=== PATIENT | male | born 1955 | race Caucasian/White ===

== ENCOUNTER 2018-06-12 13:49 | Inpatient (IN) | payer MEDICARE, BC ==
--- NOTE | 2018-06-12 15:30 | PDOC ---
History of Present Illness - General Chief Complaint: Wound Stated Complaint: INFECTED TOE Time Seen by Provider: 06/12/18 15:30 History Source: Patient Exam Limitations: No Limitations - History of Present Illness Initial Comments: 06/12/18 16:06 62 year old man with a history of HTN, type 2 DM with neuropathy, bilateral toe amputations, CAD with previous CABG and stent placements multiple foot wounds managed by wound care clinic who presents with 4 days of L third digit ulcer with darkening and gangrenes appearance that was concerning to wound care interactive media marketing strategist who recommended that patient come to the ED for admission. The patient denies any fevers, nausea, vomiting,diarrhea, constipation, chest pain, shortness of breath. The patient has baseline decrease in sensation of the extremitites due to diabetic neuropathy. Past History - Past Medical History Allergies/Adverse Reactions: Allergies Allergy/AdvReac Type Severity Reaction Status Date / Time No Known Allergies Allergy Verified 07/24/13 17:04 Home Medications: Ambulatory Orders Atorvastatin Ca [Lipitor] 20 mg PO HS #0 tablet 05/07/13 Losartan Potassium [Cozaar -] 25 mg PO DAILY #0 tablet 05/07/13 Carvedilol [Coreg -] 6.25 mg PO ONCE 06/12/18 Duloxetine HCl 60 mg PO DAILY 06/12/18 Metformin HCl [Glucophage] 500 mg PO DAILY 06/12/18 Pantoprazole Sodium [Protonix -] 40 mg PO DAILY 06/12/18 Ticagrelor [Brilinta] 90 mg PO BID 06/12/18 Asthma: No Cancer: No Cardiac Disorders: Yes (CAD, CABG, stent) CVA: No COPD: No Dementia: No Diabetes: Yes GI Disorders: Yes (REFLUX OCCASIONALLY) Disorders: No HTN: Yes Hypercholesterolemia: Yes Liver Disease: No Seizures: No Thyroid Disease: No - Surgical History Abdominal Surgery: Yes Appendectomy: No Cardiac Surgery: Yes (cabg x 3 2002; stents 2011) Cholecystectomy: No Lung Surgery: No Neurologic Surgery: No Orthopedic Surgery: Yes (L ARM COMPOUND FX) - Immunization History Immunization Up to Date: No - Suicide/Smoking/Psychosocial Hx Smoking History: Never smoked Have you smoked in the past 12 months: No If you are a former smoker, when did you quit?: 2003 Information on smoking cessation initiated: No Hx Alcohol Use: No Drug/Substance Use Hx: No Substance Use Type: None Hx Substance Use Treatment: No Review of Systems - Review of Systems Able to Perform ROS?: Yes Comments:: 06/12/18 16:23 GENERAL/CONSTITUTIONAL: No fever or chills. No weakness. HEAD, EYES, EARS, NOSE AND THROAT: No change in vision. No ear pain or discharge. No sore throat. CARDIOVASCULAR: No chest pain or shortness of breath RESPIRATORY: No cough, wheezing, or hemoptysis. GASTROINTESTINAL: No nausea, vomiting, diarrhea or constipation. GENITOURINARY: No dysuria, frequency, or change in urination. MUSCULOSKELETAL: No joint or muscle swelling or pain. No neck or back pain. SKIN: + blackened skin on L third toe NEUROLOGIC: No headache, vertigo, loss of consciousness, or change in strength/ sensation. ENDOCRINE: No increased thirst. No abnormal weight change HEMATOLOGIC/LYMPHATIC: No anemia, easy bleeding, or history of blood clots. ALLERGIC/IMMUNOLOGIC: No hives or skin allergy. *Physical Exam - Vital Signs Last Vital Signs Temp Pulse Resp BP Pulse Ox 98.5 F 69 16 129/51 L 98 06/12/18 14:02 06/12/18 14:02 06/12/18 14:02 06/12/18 14:02 06/12/18 14:02 - Physical Exam Comments: 06/12/18 16:21 GENERAL: Awake, alert, and fully oriented, in no acute distress HEAD: No signs of trauma, normocephalic, atraumatic EYES: EOMI, sclera anicteric, conjunctiva clear ENT: oropharynx clear without exudates. Moist mucosa NECK: Normal ROM, supple LUNGS: No distress, speaks full sentences, clear to auscultation bilaterally HEART: Regular rate and rhythm, normal S1 and S2, no murmurs, rubs or gallops, peripheral pulses normal and equal bilaterally. ABDOMEN: Soft, nontender, normoactive bowel sounds. No guarding, no rebound. No masses EXTREMITIES : R and L toe amputation, L third toe dry gangrene w/tunneling ulcer , warmth, erythema of L foot extending up into the L calf, palapable pulses NEUROLOGICAL: Cranial nerves II through XII grossly intact. Normal speech, no focal sensorimotor deficits SKIN: Warm, Dry, normal turgor, no rashes or lesions noted ED Treatment Course - LABORATORY CBC & Chemistry Diagram: 06/12/18 16:35 06/12/18 17:00 Medical Decision Making - Medical Decision Making 06/12/18 16:15 62 year old man with a history of diabetes, diabetic neuropathy, bilateral toe amputations, and multiple foot wounds managed by wound care clinic who presents with 4 days of L third digit ulcer with darkening and gangrenes appearance that was concerning to wound care interactive media marketing strategist who recommended that patient come to the ED for admission. ED Course: diabetic ulcer w/ dry gangrene r/o osteomyelitis Foot XR 06/10/18: without gross bone destruction cbc w/ leukocytosis 06/12/18 18:43 Case discussed with inpatient team, admitted *DC/Admit/Observation/Transfer Diagnosis at time of Disposition: Diabetic foot ulcer - Discharge Dispostion Condition at time of disposition: Stable Decision to Admit order: Yes - Referrals - Patient Instructions - Post Discharge Activity
[2018-06-12] MEDS ORDERED: PIPERACILLIN/TAZOB 4.5 GM 4.5 GM in DEXTROSE 5%-WATER 100 ML IVPB ONE (16:03)
[2018-06-12] MEDS ORDERED: VANCOMYCIN HCL 1,500 MG in DEXTROSE 5%-WATER - 500 ML IVPB ONE (16:03)
[2018-06-12] MEDS ORDERED: SODIUM CHLORIDE 1,000 ML IV SCH (16:15)
[2018-06-12] MEDS ORDERED: PIPERACILLIN/TAZOB 4.5 GM 4.5 GM/100 ML BAG IVPB ONE (16:36)
--- NOTE | 2018-06-12 16:39 | PDOC ---
Documentation entered by Ashlyn Manzano SCRIBE, acting as scribe for Leeann Mcadams DO. Leeann Mcadams DO: This documentation has been prepared by the Natacha emmanuel Amanda, SCRIBE, under my direction and personally reviewed by me in its entirety. I confirm that the documentation accurately reflects all work, treatment, procedures, and medical decision making performed by me. Attending Attestation - Resident Resident Name: Sujatha Davis - ED Attending Attestation I have performed the following: I have examined & evaluated the patient, The case was reviewed & discussed with the resident, I agree w/resident's findings & plan, Exceptions are as noted - HPI HPI: 06/12/18 16:24 The patient is a 62 year old man with a significant past medical history of diabetes, diabetic neuropathy, bilateral toe amputations, and multiple foot wounds managed by wound care clinic who presents to the ED with 4 days of L third digit darkening sent by wound care orthopaedic surgeon who recommended patient come to the ED for admission for possible amputation and IV Abx treatment. The patient denies any fevers, nausea, vomiting,diarrhea, constipation, chest pain, shortness of breath. The patient has baseline decrease in sensation of the extremitites due to diabetic neuropathy. - Physicial Exam PE: 06/12/18 16:25 GENERAL: Awake, alert, and fully oriented, in no acute distress HEAD: No signs of trauma EYES: PERRLA, EOMI, sclera anicteric, conjunctiva clear ENT: Auricles normal inspection, hearing grossly normal, nares patent, oropharynx clear without exudates. Moist mucosa NECK: Normal ROM, supple, no lymphadenopathy, JVD, or masses LUNGS: Breath sounds equal, clear to auscultation bilaterally. No wheezes, and no crackles HEART: Regular rate and rhythm, normal S1 and S2, no murmurs, rubs or gallops ABDOMEN: Soft, nontender, normoactive bowel sounds. No guarding, no rebound. No masses EXTREMITIES: (+) Left 1st toe amputation with wound at MTP of big toe. The 3rd digit of the left foot is necrotic. The left foot is warm with lymphangytic spread over the dorsum of the L foot extending to mid calf of LLE. Normal range of motion, no edema. No clubbing or cyanosis. No cords, NEUROLOGICAL: Cranial nerves II-XII intact. Normal speech, normal gait. Sensation intact in upper and lower extremities. 5/5 motor strength in upper and lower extremities. No pronator drift. Finger to nose intact. Rapid alternations intact. SKIN: Warm, Dry, normal turgor, no rashes or lesions noted. - Medical Decision Making 06/12/18 16:12 I, Dr. Leeann Mcadams, DO, attest that this document has been prepared under my direction and personally reviewed by me in its entirety. I further attest, that it accurately reflects all work, treatment, procedures and medical decision -making performed by me. 06/12/18 16:12 a/p: 62yo male with hx of DM and osteo in the past -dry gangrene of the L 3rd toe - black and necrotic with redness and swelling across the dorsum of the foot and up the medial calf -no fevers, lymphangitic spread -swelling -pulses intact, warm foot -non healing, sent by Dr. Otero for iv abx and poss amputation -will start broad spectrum abx -hx of MRSA in prior osteo -pt is nontoxic in appearance -will need admission to [facility] 06/12/18 16:18 had a foot xray on 06/10 that does not show bone changes for osteo 06/12/18 17:48 pt with mildly elevated wbc abx ordered cultures sent diabetic foot wound, microblog sent to [facility] for admission 06/12/18 18:45 resident discussed the case with [facility] who accepts pt to service Heart Score/ECG Review - ECG Intrepretation Comment:: 06/12/18 17:35 sinus at 78, incomplete RBBB, nl axis, baseline artifact, t wave inversions I, avl 06/12/18 17:36 06/12/18 17:37 unchanged from prior in 2013
[2018-06-12 17:12] LABS: BASO % 0.3 % (0-2.0); EOS % 0.6 % (0-4.5); HEMATOCRIT 37.9 % (35.4-49); HEMOGLOBIN 12.6 GM/dL (11.7-16.9); LYMPH % 8.1 % (8-40); MCH 28.9 pg (25.7-33.7); MCHC 33.2 g/dl (32.0-35.9); MEAN CELL VOLUME 87.2 fl (80-96); MEAN PLT VOLUME 7.5 fl (7.5-11.1); MONO % 8.4 % (3.8-10.2); NEUT % 82.6 % (42.8-82.8); PLATELET COUNT 288 K/MM3 (134-434); RBC 4.34 M/mm3 (4.00-5.60); RDW 13.8 % (11.9-15.9); WHITE BLOOD COUNT 13.5 K/mm3 (4.0-10.0)
[2018-06-12 17:38] LABS: ALBUMIN 3.2 g/dl (3.4-5.0); ALK PHOS 74 U/L (45-117); ANION GAP 8 MMOL/L (8-16); BILIRUBIN,TOTAL 0.5 mg/dL (0.2-1); BLOOD UREA NITROGEN 16 mg/dL (7-18); CALCIUM 9.1 mg/dL (8.5-10.1); CHLORIDE 96 mmol/L (98-107); CO2 28 mmol/L (21-32); CREATININE 1.3 mg/dL (0.55-1.3); GLUCOSE,RANDOM 87 mg/dL (74-106); POTASSIUM 4.1 mmol/L (3.5-5.1); SGOT/AST 19 U/L (15-37); SGPT/ALT 23 U/L (13-61); SODIUM 132 mmol/L (136-145); TOT PROT 8.3 g/dl (6.4-8.2)
[2018-06-12 17:39] LABS: INR 1.23 (0.83-1.09); PROTHROMBIN TIME (PATIENT) 14.5 SEC (9.7-13.0)
[2018-06-12 17:41] LABS: ACTIVATED PTT 32.5 SECONDS (25.2-36.5)
--- NOTE | 2018-06-12 19:47 | PN ---
Teaching Attending Note Name of Resident: Mina Klein ATTENDING PHYSICIAN STATEMENT I saw and evaluated the patient. I reviewed the resident's note and discussed the case with the resident. I agree with the resident's findings and plan as documented. SUBJECTIVE: Seen and examined; please refe to resident note for further historical details. 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 He presents after being sent in by Dr. Otero for further assessment and management; appears to have dry gangrene of the L-3rd toe with some rubar extending to the calf proximally. He had some drainage earlier in the week but none noted today in the ER. 10 sys ROS done and negative aside from HPI PMH, PSH, Social/Family hx reviewed Home Medications Medication Instructions Recorded Atorvastatin Ca [Lipitor] 20 mg PO HS #0 tablet 05/07/13 Losartan Potassium [Cozaar -] 25 mg PO DAILY #0 tablet 05/07/13 Carvedilol [Coreg -] 6.25 mg PO ONCE 06/12/18 Duloxetine HCl 60 mg PO DAILY 06/12/18 Metformin HCl [Glucophage] 500 mg PO DAILY 06/12/18 Pantoprazole Sodium [Protonix -] 40 mg PO DAILY 06/12/18 Ticagrelor [Brilinta] 90 mg PO BID 06/12/18 Also on insulin pump, trulicity. Final reconciliation pending. OBJECTIVE: VS, labs, imaging reviewed NAD, AAO, resting in bed R-3rd toe with reddness extending to calf; NC AT EOMI PERRLA RRR s1/2 no mgr Lungs CTAB, w/ sym exp CN2-12 wnl, no fnd EKG reviewed; no significant changes 06/10 XR documented as no OM changes MRI pending, arterial and venous dopplers pending Slight leukocytosis Prior cultures noted; MRSA bone cx 2013 ASSESSMENT AND PLAN: Patient with a hx MRSA+ OM presents with infected DM foot wound 1) DM Foot Wound, r/o osteomyelitis, with surrounding cellulitis -Followup MRI, ESR, CRP, cultures -Consult patient's vp strategic planning -Empiric IV Vanco/Zosyn, consult ID given abx choice -Followup arterial dopplers to assess for PAD 2) CAD w/ stated recent PCI; s/p CABG -No cardiac sx; would like to review old records. Continue all home medications (especially altiplts) and reconcile to ensure no recent changes. 3) DM -On home insulin pump. He may continue to use this overnight but if any hypo/ hyper would be in favor of SSI when here. Monitor fingersticks. -Followup A1c, etc. as OP. 4) HTN -Continue home medications 5) High protein/low alb -Minor over upper limit of normal; followup and consider further workup if abnormalities persist.
--- NOTE | 2018-06-12 20:59 | HP ---
CHIEF COMPLAINT: Left 3rd Toe gangrene PCP: none HISTORY OF PRESENT ILLNESS: Pt is a 62 y/o gentleman with a significant past medical history of CAD s/p CABG (3 stents),IDDM, Diabetic Neuropathy, osteo with MRSA+ wound, HTN who was sent to [facility] by his director of publications due to left 3rd toe gangrene. Per pt, approximately 10 days ago, he began to experience pain in his lower left extremity. Pt does not recall any injuries to the area. Pt the following week went to his wound care clinic where he was told that he had an infection of his toe. Pt endorses that the pain is worse when he is ambulating; while he is sitting and not using his foot, he does not have any pain. States he noted some discharge from the affected toe earlier in the week which was described as yellow. Currently denies any discharge. Denies any fevers, nausea/vomiting, sob , chest pain. PMH as per above Social Hx- Former Smoker quit 2002. Smoked 2 packs per day. Former "heavy drinker", quit. Denies IVDA. SurgHx- CABG 2002 [facility], b/l Large toe amputations FH- Esophageal cancer father NKDA ER course was notable for: (1) Vanc/Zosyn (2) WBC 13.5 Family History: Allergies No Known Allergies Allergy (Verified 07/24/13 17:04) HOME MEDICATIONS: Home Medications Medication Instructions Recorded Atorvastatin Ca [Lipitor] 20 mg PO HS #0 tablet 05/07/13 Losartan Potassium [Cozaar -] 25 mg PO DAILY #0 tablet 05/07/13 Carvedilol [Coreg -] 6.25 mg PO ONCE 06/12/18 Duloxetine HCl 60 mg PO DAILY 06/12/18 Metformin HCl [Glucophage] 500 mg PO DAILY 06/12/18 Pantoprazole Sodium [Protonix -] 40 mg PO DAILY 06/12/18 Ticagrelor [Brilinta] 90 mg PO BID 06/12/18 REVIEW OF SYSTEMS CONSTITUTIONAL: Absent: fever, chills, diaphoresis, generalized weakness, malaise, loss of appetite, weight change HEENT: Absent: rhinorrhea, nasal congestion, throat pain, throat swelling, difficulty swallowing, mouth swelling, ear pain, eye pain, visual changes CARDIOVASCULAR: Absent: chest pain, syncope, palpitations, irregular heart rate, lightheadedness , peripheral edema RESPIRATORY: Absent: cough, shortness of breath, dyspnea with exertion, orthopnea, wheezing, stridor, hemoptysis GASTROINTESTINAL: Absent: abdominal pain, abdominal distension, nausea, vomiting, diarrhea, constipation, melena, hematochezia GENITOURINARY: Absent: dysuria, frequency, urgency, hesitancy, hematuria, flank pain, genital pain MUSCULOSKELETAL: PRESENT: Pain left lower extremity. SKIN: Absent: rash, itching, pallor HEMATOLOGIC/IMMUNOLOGIC: Absent: easy bleeding, easy bruising, lymphadenopathy, frequent infections ENDOCRINE: Absent: unexplained weight gain, unexplained weight loss, heat intolerance, cold intolerance NEUROLOGIC: Absent: headache, focal weakness or paresthesias, dizziness, unsteady gait, seizure, mental status changes, bladder or bowel incontinence PSYCHIATRIC: Absent: anxiety, depression, suicidal or homicidal ideation, hallucinations. PHYSICAL EXAMINATION Vital Signs - 24 hr 06/12/18 14:02 Temperature 98.5 F Pulse Rate 69 Respiratory 16 Rate Blood Pressure 129/51 L O2 Sat by Pulse 98 Oximetry (%) GENERAL: AAOx3 NAD HEAD: Normal with no signs of trauma. EYES: EOMI Sclera clear EARS, NOSE, THROAT: MMM NECK: Supple no JVD LUNGS: CTAB HEART: RRR nl S1S2 ABDOMEN: Soft NDNT MUSCULOSKELETAL: FROM LOWER EXTREMITIES: Decreased Sensation entire left foot up to ankle. Left 3rd toe black, no sensation. DP weak. B/l hallux amputated. NEUROLOGICAL: Cranial nerves II-XII intact. Normal speech PSYCHIATRIC: Cooperative. Good eye contact. Appropriate mood and affect. SKIN: Warm, dry, normal turgor, no rashes or lesions noted, normal capillary refill. Laboratory Results - last 24 hr 06/12/18 06/12/18 06/12/18 16:35 16:35 17:00 WBC 13.5 H RBC 4.34 Hgb 12.6 Hct 37.9 MCV 87.2 MCH 28.9 MCHC 33.2 RDW 13.8 Plt Count 288 MPV 7.5 Absolute Neuts (auto) 11.1 H Neutrophils % 82.6 D Lymphocytes % 8.1 D Monocytes % 8.4 Eosinophils % 0.6 Basophils % 0.3 Nucleated RBC % 0 PT with INR 14.50 H INR 1.23 H PTT (Actin FS) 32.5 Sodium 132 L Potassium 4.1 Chloride 96 L Carbon Dioxide 28 Anion Gap 8 BUN 16 Creatinine 1.3 Creat Clearance w eGFR 56.12 Random Glucose 87 Calcium 9.1 Total Bilirubin 0.5 AST 19 ALT 23 Alkaline Phosphatase 74 Total Protein 8.3 H Albumin 3.2 L ASSESSMENT/PLAN: Pt is a 62 y/o gentleman with a significant past medical history of CAD s/p CABG (3 stents),IDDM, Diabetic Neuropathy, osteo with MRSA+ wound, HTN who was sent to [facility] by his director of publications due to left 3rd toe gangrene. #Gangrene w/ Cellulites -Left 3rd toe gangrene. Cellulitis extending up to mid-calf. -Received Vanc Zosyn in ED as previous Wound culture from 04/2013 revealed + MRSA sensitive to Vanco. Will continue Vanco and Zosyn as pt DM and susceptible to Pseudomonas infection. Pharmacy contacted. Recommends Vanco 1G Q8H in light of pt's weight and CrCl. -CRP, ESR Pending -f/u BMP,CBC in am -Venous and Arterial doppler of Left lower extremity as DP faint. Possible Angio intervention if imaging +. -MRI to assess for osteo. Previous XRAY on 06/10 stated " possible osteo left SECOND toe?". -Podiatry consulted. Possible amputation tomorrow.Will make pt NPO. PT/INR PTT in am. -Blood Cultures pending #DM -Insulin Sliding Scale coverage Pump removed In ED. BGMs #HTN -Coreg 6.25 -Losartan 25 Daily #CAD -Rosuvastain 20 -ASA 81 -Ticagrelor. Pt endorses he stopped taking this medication 4 days ago as he thought it may worsen his toe infection. Day team needs to communicate with Dr Floyd to discuss if this medication needs to be held. #FEN -LR@75cc/hr -Monitor Electrolytes -NPO #DVT -SCDs -Hold AC in light of possible surgery in am Dispo: Med-Surg Visit type - Emergency Visit Emergency Visit: Yes ED Registration Date: 06/12/18 Care time: The patient presented to the Emergency Department on the above date and was hospitalized for further evaluation of their emergent condition. - New Patient This patient is new to me today: Yes Date on this admission: 06/13/18 - Critical Care Critical Care patient: No
[2018-06-12] MEDS: LACTATED RINGERS SOLUTION 1,000 ML/1,000 ML INFUS.BAG IV SCH (21:00)
[2018-06-12] MEDS ORDERED: CARVEDILOL 6.25 MG TABLET (FP) PO ONE (22:00)
[2018-06-12] MEDS ORDERED: CARVEDILOL 12.5 MG TABLET (FP) ONE (23:16)
[2018-06-12] MEDS: ROSUVASTATIN CA 20 MG TABLET (FP) PO SCH (23:31)
[2018-06-13] MEDS ORDERED: VANCOMYCIN 1,000 MG in DEXTROSE 5%-WATER - 250 ML IVPB SCH ×3 (02:00→18:19)
[2018-06-13] MEDS ORDERED: PIPERACILLIN/TAZOBACTAM 3.375 GM VIAL IVPB ONE ×3 (02:03→17:31)
[2018-06-13] MEDS ORDERED: DEXTROSE 5%-WATER - 50 ML IVPB ONE ×3 (02:04→17:32)
[2018-06-13] MEDS: PIPERACILLIN/TAZOB 3.375 GM 3.375 GM in DEXTROSE 5%-WATER - 50 ML IVPB SCH ×3 (02:14→17:56)
[2018-06-13 04:36] VITALS: BMI 33.3
[2018-06-13 06:17] LABS: BASO % 0.4 % (0-2.0); EOS % 1.7 % (0-4.5); HEMATOCRIT 34.3 % (35.4-49); HEMOGLOBIN 11.7 GM/dL (11.7-16.9); LYMPH % 14.4 % (8-40); MCH 29.3 pg (25.7-33.7); MCHC 34.2 g/dl (32.0-35.9); MEAN CELL VOLUME 85.8 fl (80-96); MEAN PLT VOLUME 7.4 fl (7.5-11.1); MONO % 12.4 % (3.8-10.2); NEUT % 71.1 % (42.8-82.8); PLATELET COUNT 259 K/MM3 (134-434)
[2018-06-13 06:27] LABS: INR 1.23 (0.83-1.09); PROTHROMBIN TIME (PATIENT) 14.5 SEC (9.7-13.0)
[2018-06-13 06:30] LABS: ACTIVATED PTT 28.4 SECONDS (25.2-36.5)
[2018-06-13 07:58] LABS: ALBUMIN 2.8 g/dl (3.4-5.0); ALK PHOS 66 U/L (45-117); ANION GAP 7 MMOL/L (8-16); BILIRUBIN,TOTAL 0.6 mg/dL (0.2-1); BLOOD UREA NITROGEN 18 mg/dL (7-18); CALCIUM 8.6 mg/dL (8.5-10.1); CHLORIDE 99 mmol/L (98-107); CO2 27 mmol/L (21-32); CREATININE 1.4 mg/dL (0.55-1.3); GLUCOSE,RANDOM 159 mg/dL (74-106); MAGNESIUM 2.4 mg/dL (1.8-2.4); POTASSIUM 3.8 mmol/L (3.5-5.1); SGOT/AST 21 U/L (15-37); SGPT/ALT 22 U/L (13-61); SODIUM 133 mmol/L (136-145); TOT PROT 7.5 g/dl (6.4-8.2)
--- NOTE | 2018-06-13 09:00 | CONSULT ---
- Consultation REQUESTING PROVIDER: CONSULT REQUEST: We have been asked to surgically evaluate this patient for ( left toe gangrene). PCP:Landen Moreno MD HISTORY OF PRESENT ILLNESS: 62 y/o gentleman w/ PMHx CAD s/p CABG (3 stents), IDDM, Diabetic Neuropathy, osteo with MRSA+ wound, HTN, sent by his rn lpn lvn due to left 3rd toe gangrene. Per pt, he began to have pain in his left leg approximately 10 days ago. Denies any known trauma to the area. Pt was seen at his wound care clinic last week, where he was told that he had an infection of his toe. Reports his toe began to look worse over the past few days (darker with skin sloughing) as well as some yellow drainage. Denies fevers/chills, nausea/vomiting, sob, chest pain. Denies current tobacco use, however is a former 2ppd smoker, quit in 2002. PMHx: as above PSHx: CABG 2002 [facility], b/l Large toe amputations Home Medications Medication Instructions Recorded Atorvastatin Ca [Lipitor] 20 mg PO HS #0 tablet 05/07/13 Losartan Potassium [Cozaar -] 25 mg PO DAILY #0 tablet 05/07/13 Aspirin 1 tab PO DAILY 06/12/18 Carvedilol [Coreg -] 6.25 mg PO ONCE 06/12/18 Dulaglutide [Trulicity] 1 dose IM WEEKLY 06/12/18 Duloxetine HCl 60 mg PO DAILY 06/12/18 Insulin Pump [Insulin Pump - (Nf)] 1 unit IM DAILY 06/12/18 Metformin HCl [Glucophage] 500 mg PO DAILY 06/12/18 Pantoprazole Sodium [Protonix -] 40 mg PO DAILY 06/12/18 Rosuvastatin [Crestor -] 1 tab PO HS 06/12/18 Ticagrelor [Brilinta] 90 mg PO BID 06/12/18 Allergies Allergy/AdvReac Type Severity Reaction Status Date / Time No Known Allergies Allergy Verified 07/24/13 17:04 REVIEW OF SYSTEMS: CONSTITUTIONAL: Absent: fever, chills CARDIOVASCULAR: Absent: chest pain, syncope RESPIRATORY: Absent: cough, shortness of breath GASTROINTESTINAL: Absent: abdominal pain PHYSICAL EXAM: GENERAL: Awake, alert, and fully oriented, in no acute distress. HEAD: Normal with no signs of trauma. LUNGS: unlabored on RA No accessory muscle use. LOWER EXTREMITIES: B/L feet unkept, + scaling skin, + callus b.l heels. R great toe amp site well healed with overlying callus. L foot with 1+ pitting edema to ankle, toe with gangrene from PIP down, open ulcer at tip of toe with + serosanguinous drainage. + foul odor. Minimal surrounding erythema. Separate circular area of erythema over mid calf medial to tibia. No TTP, no fluctance appreaciated. Vasc: 2+ femoral b/l, palpable dp b/l, unable to appreciate PT. Vital Signs Temperature 98.2 F 06/13/18 05:46 Pulse Rate 62 06/13/18 05:46 Respiratory Rate 16 06/13/18 05:46 Blood Pressure 132/76 06/13/18 05:46 O2 Sat by Pulse Oximetry (%) 96 06/13/18 03:36 Lab Results WBC 10.0 K/mm3 (4.0-10.0) 06/13/18 05:30 RBC 4.00 M/mm3 (4.00-5.60) 06/13/18 05:30 Hgb 11.7 GM/dL (11.7-16.9) 06/13/18 05:30 Hct 34.3 % (35.4-49) L 06/13/18 05:30 MCV 85.8 fl (80-96) 06/13/18 05:30 MCHC 34.2 g/dl (32.0-35.9) 06/13/18 05:30 RDW 14.0 % (11.9-15.9) 06/13/18 05:30 Plt Count 259 K/MM3 (134-434) 06/13/18 05:30 Sodium 133 mmol/L (136-145) L 06/13/18 05:30 Potassium 3.8 mmol/L (3.5-5.1) 06/13/18 05:30 Chloride 99 mmol/L (98-107) 06/13/18 05:30 Carbon Dioxide 27 mmol/L (21-32) 06/13/18 05:30 Anion Gap 7 MMOL/L (8-16) L 06/13/18 05:30 BUN 18 mg/dL (7-18) 06/13/18 05:30 Creatinine 1.4 mg/dL (0.55-1.3) H 06/13/18 05:30 Random Glucose 159 mg/dL (74-106) H 06/13/18 05:30 Calcium 8.6 mg/dL (8.5-10.1) 06/13/18 05:30 INR 1.23 (0.83-1.09) H 06/13/18 05:30 Vascular Duplex (06/12/18): no dvt lle, LLE arterial duplex with monophasic flow in FILER HELPER/pop/PTV and biphasic in SFA A/P: 62 y/o gentleman w/ PMHx CAD s/p CABG (3 stents), IDDM, Diabetic Neuropathy , osteo with MRSA+ wound, HTN, sent by his rn lpn lvn due to left 3rd toe gangrene. Per pt, he began to have pain in his left leg approximately 10 days ago. Pt with L third toe gangrene/DM infection. Pt with leukocytosis upon admission, 13.5k, now resolved. No fevers. -Amputation per Podiatry -Pt should f/u with Dr Birmingham for ROULA/PVR in the office for ROULA/PVRs -F/U MRI -Continue ASA 81mg/Statin -ABX per ID plan d/w attending Dr Birmingham
--- NOTE | 2018-06-13 09:51 | CONSULT ---
Consult - text type - Consultation Consultation Note: Podiatry Consultation: 62 year old diabetic, CAD M presented to wound care on Saturday with infection in left third digit. Patient was found to have exposed bone to the third toe at that time. I had prompted patient to present to ED and he waited until yesterday evening to present. Currently afebrile, VSS. PMHx: DM, HTN, CAD s/p stent 2 weeks ago Meds: noted ALL: NKMA BRITANY: L foot: pedal pulses 1/4, TG wnl. There is a third digit distal tuft diabetic ulcer down to bone, seropurulent drainage present, surrounding ischemic present , no soft tissue crepitus, no streaking cellulitis. ESR: 92 MRI L foot: pending IMp: 62 year old diabetic male with left third digit diabetic infection, osteomyelitis 1. IV abx per ID 2. MRI pending 3. Vascular consult pending 4. May want Cardiology input, patient had cardiac stent last month at [facility] 5. Will likely do amputation Saturday. Will need MRI to determine level of amputation of third toe. THank you for the courtesy of this consultation. Celso Floyd DPM
[2018-06-13] MEDS ORDERED: ASPIRIN 81 MG CHEWABLE TABLETS PO SCH (10:00)
[2018-06-13] MEDS ORDERED: PIPERACILLIN/TAZOB 3.375 GM 3.375 GM in DEXTROSE 5%-WATER - 50 ML IVPB SCH (10:00)
[2018-06-13] MEDS ORDERED: LOSARTAN POTASSIUM 25 MG TABLET PO SCH (10:00)
[2018-06-13] MEDS: DULoxetine HCL 30 MG CAPSULE.DR (FP) PO SCH (10:25)
[2018-06-13] MEDS: PANTOPRAZOLE 40 MG TABLET (FP) PO SCH (10:25)
[2018-06-13] MEDS: ASPIRIN 81 MG CHEWABLE TABLETS PO SCH (10:25)
--- NOTE | 2018-06-13 10:46 | EKG ---
Test Reason : Blood Pressure : / mmHG Vent. Rate : 078 BPM Atrial Rate : 078 BPM P-R Int : 174 ms QRS Dur : 110 ms QT Int : 390 ms P-R-T Axes : 013 068 083 degrees QTc Int : 444 ms NORMAL SINUS RHYTHM INCOMPLETE RIGHT BUNDLE BRANCH BLOCK CANNOT RULE OUT ANTERIOR INFARCT , AGE UNDETERMINED NONSPECIFIC T WAVE ABNORMALITY ABNORMAL ECG Confirmed by JAVIER HUGGINS MD ([id number]) on 06/13/2018 10:46:44 AM Referred By: Confirmed By:JAVIER HUGGINS MD
[2018-06-13] MEDS: INSULIN SLIDING SCALE (NOVOLOG) 1 VIAL SQ SCH ×3 (11:36→21:16)
[2018-06-13] MEDS: TICAGRELOR 90 MG TABLET PO SCH ×2 (11:37→21:15)
--- NOTE | 2018-06-13 12:45 | PN ---
Progress Note (short form) - Note Progress Note: ID CONSULT DICTATED GANGRENE L 3RD TOE CELLULITIS L LE AZOTEMIA DIABETES MELLITUS HX MRSA AWAIT C/S EMPIRIC ZOSYN/VANCOMYCIN
--- NOTE | 2018-06-13 12:56 | PN ---
Physical Exam: SUBJECTIVE: Patient seen and examined at bedside this morning. Patient is a 62 year old male with past medical history of CAD s/p CABG (3 stents), IDDM, Diabetic Neuropathy, osteomyelitis (MRSA positive), and HTN presented from wound care clinic due to left 3rd toe gangrene that was noted about 10 days. Patient reported upon waking up, he just noted his left 3rd toe was black. This was accomapanied with discomfort while walking and left leg redness and swelling. Patient saw Dr. Floyd and was advised admission for further work up and management of the toe. He denies fever, chills, headache, dizziness, chest pain, SOB, abdominal pain, diarrhea, urinary symptoms. OBJECTIVE: Vital Signs Period Temp Pulse Resp BP Sys/Pimentel Pulse Ox Last 24 Hr 98.2 F-98.5 F 62-70 16-18 124-132/45-76 96-98 GENERAL: The patient is awake, alert, and fully oriented, in no acute distress. HEAD: Normal with no signs of trauma. EYES: PERRLA, EOMI, sclera anicteric, conjunctiva clear. ENT: oropharynx clear without exudates, moist mucous membranes. NECK: Trachea midline, full range of motion, supple. LUNGS: Breath sounds equal, clear to auscultation bilaterally. HEART: Regular rate and rhythm, S1, S2 without murmur, rub or gallop. ABDOMEN: Soft, nontender, nondistended, normoactive bowel sounds. EXTREMITIES: RLE: 2+ pulses, warm, well-perfused, no edema. LLE: +1 pulses, +1 peripheral edema, minimal erythema (improved), no warmth or tenderness, + gangrenous 3rd toe NEUROLOGICAL: Cranial nerves II through XII grossly intact. Normal speech, gait not observed. PSYCH: Normal mood, normal affect. SKIN: Warm, dry, normal turgor, no rashes or lesions noted Laboratory Results - last 24 hr 06/12/18 06/12/18 06/12/18 16:35 16:35 17:00 WBC 13.5 H RBC 4.34 Hgb 12.6 Hct 37.9 MCV 87.2 MCH 28.9 MCHC 33.2 RDW 13.8 Plt Count 288 MPV 7.5 Absolute Neuts (auto) 11.1 H Neutrophils % 82.6 D Lymphocytes % 8.1 D Monocytes % 8.4 Eosinophils % 0.6 Basophils % 0.3 Nucleated RBC % 0 ESR PT with INR 14.50 H INR 1.23 H PTT (Actin FS) 32.5 Sodium 132 L Potassium 4.1 Chloride 96 L Carbon Dioxide 28 Anion Gap 8 BUN 16 Creatinine 1.3 Creat Clearance w eGFR 56.12 POC Glucometer Random Glucose 87 Calcium 9.1 Phosphorus Magnesium Total Bilirubin 0.5 AST 19 ALT 23 Alkaline Phosphatase 74 C-Reactive Protein Total Protein 8.3 H Albumin 3.2 L 06/12/18 06/12/18 06/13/18 19:39 20:10 05:10 WBC RBC Hgb Hct MCV MCH MCHC RDW Plt Count MPV Absolute Neuts (auto) Neutrophils % Lymphocytes % Monocytes % Eosinophils % Basophils % Nucleated RBC % ESR 92 H PT with INR INR PTT (Actin FS) Sodium Potassium Chloride Carbon Dioxide Anion Gap BUN Creatinine Creat Clearance w eGFR POC Glucometer 153 Random Glucose Calcium Phosphorus Magnesium Total Bilirubin AST ALT Alkaline Phosphatase C-Reactive Protein 11.9 H Total Protein Albumin 06/13/18 06/13/18 06/13/18 05:30 05:30 05:30 WBC 10.0 RBC 4.00 Hgb 11.7 Hct 34.3 L MCV 85.8 MCH 29.3 MCHC 34.2 RDW 14.0 Plt Count 259 MPV 7.4 L Absolute Neuts (auto) 7.1 Neutrophils % 71.1 Lymphocytes % 14.4 D Monocytes % 12.4 H Eosinophils % 1.7 D Basophils % 0.4 Nucleated RBC % 0 ESR PT with INR 14.50 H INR 1.23 H PTT (Actin FS) 28.4 Sodium 133 L Potassium 3.8 Chloride 99 Carbon Dioxide 27 Anion Gap 7 L BUN 18 Creatinine 1.4 H Creat Clearance w eGFR 51.52 POC Glucometer Random Glucose 159 H Calcium 8.6 Phosphorus 4.0 Magnesium 2.4 Total Bilirubin 0.6 AST 21 ALT 22 Alkaline Phosphatase 66 C-Reactive Protein Total Protein 7.5 Albumin 2.8 L 06/13/18 11:35 WBC RBC Hgb Hct MCV MCH MCHC RDW Plt Count MPV Absolute Neuts (auto) Neutrophils % Lymphocytes % Monocytes % Eosinophils % Basophils % Nucleated RBC % ESR PT with INR INR PTT (Actin FS) Sodium Potassium Chloride Carbon Dioxide Anion Gap BUN Creatinine Creat Clearance w eGFR POC Glucometer 172 Random Glucose Calcium Phosphorus Magnesium Total Bilirubin AST ALT Alkaline Phosphatase C-Reactive Protein Total Protein Albumin Active Medications Generic Name Dose Route Start Last Admin Trade Name Freq PRN Reason Stop Dose Admin Aspirin 81 mg 06/13/18 10:00 06/13/18 10:25 Asa - PO 81 mg DAILY BACILIO Administration Duloxetine HCl 60 mg 06/13/18 10:00 06/13/18 10:25 Cymbalta - PO 60 mg DAILY BACILIO Administration Lactated Ringer's 1,000 ml in 1,000 mls @ 75 mls/hr 06/12/18 21:00 06/12/18 21:00 Lactated Ringers Solution IV 75 mls/hr ASDIR BACILIO Administration Piperacillin Sod/Tazobactam 50 mls @ 100 mls/hr 06/13/18 18:00 Sod 3.375 gm/ Dextrose IVPB Q8H-IV BACILIO Protocol Vancomycin HCl 1,000 mg/ 250 mls @ 200 mls/hr 06/13/18 13:00 Dextrose IVPB Q24H BACILIO Protocol Insulin Aspart 1 vial 06/13/18 11:00 06/13/18 11:36 Novolog Vial Sliding Scale - SQ 2 units ACHS BACILIO Administration Protocol Losartan Potassium 25 mg 06/13/18 10:00 06/13/18 10:24 Cozaar - PO Not Given DAILY BACILIO Pantoprazole Sodium 40 mg 06/13/18 10:00 06/13/18 10:25 Protonix - PO 40 mg DAILY BACILIO Administration Rosuvastatin Calcium 20 mg 06/12/18 22:00 06/12/18 23:31 Crestor - PO 20 mg HS BACILIO Administration Ticagrelor 90 mg 06/13/18 10:00 06/13/18 11:37 Brilinta - PO 90 mg BID BACILIO Administration -Left foot xray: Again noted is evidence of amputation of the great toe with calcification seen by the distal end of the first metatarsal and arthritic changes with questionable osteomyelitis involving the second toe PIP joint. The third toe appears swollen but there is no sign of gross bone destruction. The fourth and fifth toes appear partially flexed. ASSESSMENT/PLAN: Patient is a 62 year old male with past medical history of CAD s/p CABG (3 stents), IDDM, Diabetic Neuropathy, osteomyelitis (MRSA positive), and HTN presented from wound care clinic due to left 3rd toe gangrene that was noted about 10 days. #Left 3rd toe gangrene with cellulitis -Previous wound culture +MRSA -Left foot xray done -MRI pending -Arterial US of LLE: decreased blood flow along the left leg -Vascular (Dr. Birmingham) consulted. -Podiatry (Dr. Floyd) consulted. Recommendations appreciated. -Will likely do amputation Saturday. -MRI to determine level of amputation of third toe -ID (Dr. Shaffer) consulted. Recommendations appreciated. -Continue Vanc/Zosyn for now -Blood culture pending #IDDM -Hold home meds -Insulin sliding scale for now -BGM ACHS #HERMINIO -IV fluids -Will hold Losartan -Avoid nephrotoxic agents #HTN -Coreg 6.25mg BID #CAD -Continue ASA 81mg -Crestor 20mg PO HS -On Ticagrelor for recent stent placement, but patient noncompliant -Cardiology consulted. #FEN -IV LR @75cc/hr -Electrolytes wnl, routine bmp monitoring -Diabetic/Sodium restricted diet #Prophylaxis -Heparin 5000units sq tid #Disposition -full code -MRSA isolation Visit type - Emergency Visit Emergency Visit: Yes ED Registration Date: 06/12/18 Care time: The patient presented to the Emergency Department on the above date and was hospitalized for further evaluation of their emergent condition. - New Patient This patient is new to me today: Yes Date on this admission: 06/13/18 - Critical Care Critical Care patient: No
--- NOTE | 2018-06-13 13:31 | CONS ---
DATE OF CONSULTATION: DATE OF DICTATION: 06/13/2018 HISTORY OF PRESENT ILLNESS: The patient is a 62-year-old diabetic male who is evaluated for gangrene of the left 3rd toe. The patient reports a several-day history of worsening erythema and hyperpigmentation of the left 3rd toe. He was seen in the wound care center on Saturday and was referred admission. At that time, he was noted to have exposed bone. He was seen in consultation by Podiatry and is scheduled for an amputation of the left 3rd toe. The patient suffers from diabetic peripheral neuropathy and as a result has had no pain. He denies any purulent drainage. No associated fever or chills. On admission, his white blood cell count was 13.5. Cultures were obtained. He was empirically treated with vancomycin and Zosyn. He has had a history of diabetic foot infections in the past and is status post amputation of toes. PAST MEDICAL HISTORY: Positive for diabetes mellitus, peripheral neuropathy, hypertension, history of osteomyelitis of the 1st right metatarsal, history of positive wound culture for MRSA. ALLERGIES: No known allergies. MEDICATIONS: Lipitor, Cozaar, Coreg, Glucophage, Protonix, Brilinta. SOCIAL HISTORY: He lives at home with his significant other. He is a former smoker. SYSTEMS REVIEW: Neurologic: Positive for peripheral neuropathy. No loss of consciousness, seizure activity, or focal weakness. Cardiac: Status post coronary artery stent approximately 1 month ago. Respiratory: Negative for cough or sputum production. Gastrointestinal: Negative for vomiting or diarrhea. Genitourinary: Negative for urinary tract infection. LABORATORY DATA: White count on admission 13.5, presently 10.0, hematocrit 34.3, platelet count 259. ESR 92. C-reactive protein 11.9. Cultures are pending. Previous cultures have grown MRSA Enterobacter group B strep. PHYSICAL EXAMINATION: General: He is awake and alert, obese. Vital signs: Temperature 98.2, blood pressure 132/76, pulse 62 and regular, respirations 16 per minute. HEENT: Sclerae anicteric. Heart: Heart sounds S1, S2. Lungs: Clear. Abdomen: Obese, soft, nontender. Extremities: Examination of the right foot, he is status post amputation of the great toe. Examination of the left foot, there is swelling of the left 3rd toe, which appears gangrenous. There is no drainage or foul odor noted. There is erythema which extended to the distal left lower extremity. No crepitus or fluctuance. No lymphangitis. IMPRESSION: 1. Gangrene of the left 3rd toe. 2. Cellulitis of the left lower extremity. 3. Azotemia. 4. Diabetes mellitus. 5. Diabetic peripheral neuropathy. 6. History of methicillin-resistant staphylococcus aureus. Pending cultures, continue empiric antibiotic coverage with Zosyn and vancomycin. Patient is for amputation of the toe. Continue local wound care. Will follow. Thank you for the kind referral. JAVIER JERONIMO M.D. [id number]
[2018-06-13] MEDS ORDERED: VANCOMYCIN HCL 1,250 MG in DEXTROSE 5%-WATER - 250 ML IVPB ONE (14:00)
[2018-06-13] MEDS: VANCOMYCIN 1,000 MG in DEXTROSE 5%-WATER - 250 ML IVPB SCH (14:15)
[2018-06-13] MEDS: HEPARIN NA (PORCINE) 5,000 UNITS/ML 1ML VIAL SQ SCH ×2 (14:16→21:16)
--- NOTE | 2018-06-13 15:29 | PN ---
Teaching Attending Note Name of Resident: Reny Krueger ATTENDING PHYSICIAN STATEMENT I saw and evaluated the patient. I reviewed the resident's note and discussed the case with the resident. I agree with the resident's findings and plan as documented. SUBJECTIVE: Patient has no complaints. OBJECTIVE: Vital Signs Period Temp Pulse Resp BP Sys/Pimentel Pulse Ox Last 24 Hr 98.2 F-98.2 F 58-70 16-18 97-132/45-76 96-98 HEART: S1S2, RRR LUNGS: Clear ABDOMEN: Obese, soft, non-tender, non-distended, normal BS EXTREMITIES: No edema, left foot wrapped Laboratory Results - last 24 hr 06/12/18 06/12/18 06/12/18 16:35 16:35 17:00 WBC 13.5 H RBC 4.34 Hgb 12.6 Hct 37.9 MCV 87.2 MCH 28.9 MCHC 33.2 RDW 13.8 Plt Count 288 MPV 7.5 Absolute Neuts (auto) 11.1 H Neutrophils % 82.6 D Lymphocytes % 8.1 D Monocytes % 8.4 Eosinophils % 0.6 Basophils % 0.3 Nucleated RBC % 0 ESR PT with INR 14.50 H INR 1.23 H PTT (Actin FS) 32.5 Sodium 132 L Potassium 4.1 Chloride 96 L Carbon Dioxide 28 Anion Gap 8 BUN 16 Creatinine 1.3 Creat Clearance w eGFR 56.12 POC Glucometer Random Glucose 87 Calcium 9.1 Phosphorus Magnesium Total Bilirubin 0.5 AST 19 ALT 23 Alkaline Phosphatase 74 C-Reactive Protein Total Protein 8.3 H Albumin 3.2 L 06/12/18 06/12/18 06/13/18 19:39 20:10 05:10 WBC RBC Hgb Hct MCV MCH MCHC RDW Plt Count MPV Absolute Neuts (auto) Neutrophils % Lymphocytes % Monocytes % Eosinophils % Basophils % Nucleated RBC % ESR 92 H PT with INR INR PTT (Actin FS) Sodium Potassium Chloride Carbon Dioxide Anion Gap BUN Creatinine Creat Clearance w eGFR POC Glucometer 153 Random Glucose Calcium Phosphorus Magnesium Total Bilirubin AST ALT Alkaline Phosphatase C-Reactive Protein 11.9 H Total Protein Albumin 06/13/18 06/13/18 06/13/18 05:30 05:30 05:30 WBC 10.0 RBC 4.00 Hgb 11.7 Hct 34.3 L MCV 85.8 MCH 29.3 MCHC 34.2 RDW 14.0 Plt Count 259 MPV 7.4 L Absolute Neuts (auto) 7.1 Neutrophils % 71.1 Lymphocytes % 14.4 D Monocytes % 12.4 H Eosinophils % 1.7 D Basophils % 0.4 Nucleated RBC % 0 ESR PT with INR 14.50 H INR 1.23 H PTT (Actin FS) 28.4 Sodium 133 L Potassium 3.8 Chloride 99 Carbon Dioxide 27 Anion Gap 7 L BUN 18 Creatinine 1.4 H Creat Clearance w eGFR 51.52 POC Glucometer Random Glucose 159 H Calcium 8.6 Phosphorus 4.0 Magnesium 2.4 Total Bilirubin 0.6 AST 21 ALT 22 Alkaline Phosphatase 66 C-Reactive Protein Total Protein 7.5 Albumin 2.8 L 06/13/18 11:35 WBC RBC Hgb Hct MCV MCH MCHC RDW Plt Count MPV Absolute Neuts (auto) Neutrophils % Lymphocytes % Monocytes % Eosinophils % Basophils % Nucleated RBC % ESR PT with INR INR PTT (Actin FS) Sodium Potassium Chloride Carbon Dioxide Anion Gap BUN Creatinine Creat Clearance w eGFR POC Glucometer 172 Random Glucose Calcium Phosphorus Magnesium Total Bilirubin AST ALT Alkaline Phosphatase C-Reactive Protein Total Protein Albumin Current Medications Generic Name Dose Route Start Last Admin Trade Name Freq PRN Reason Stop Dose Admin Aspirin 81 mg 06/13/18 10:00 06/13/18 10:25 Asa - PO 81 mg DAILY BACILIO Administration Carvedilol 6.25 mg 06/13/18 22:00 Coreg - PO BID BACILIO Duloxetine HCl 60 mg 06/13/18 10:00 06/13/18 10:25 Cymbalta - PO 60 mg DAILY BACILIO Administration Heparin Sodium (Porcine) 5,000 unit 06/13/18 14:00 06/13/18 14:16 Heparin - SQ 5,000 unit TID BACILIO Administration Lactated Ringer's 1,000 ml in 1,000 mls @ 75 mls/hr 06/12/18 21:00 06/12/18 21:00 Lactated Ringers Solution IV 75 mls/hr ASDIR BACILIO Administration Piperacillin Sod/Tazobactam 50 mls @ 100 mls/hr 06/13/18 18:00 Sod 3.375 gm/ Dextrose IVPB Q8H-IV BACILIO Protocol Vancomycin HCl 1,000 mg/ 250 mls @ 200 mls/hr 06/13/18 13:00 06/13/18 14:15 Dextrose IVPB 200 mls/hr Q24H BACILIO Administration Protocol Insulin Aspart 1 vial 06/13/18 11:00 06/13/18 11:36 Novolog Vial Sliding Scale - SQ 2 units ACHS BACILIO Administration Protocol Pantoprazole Sodium 40 mg 06/13/18 10:00 06/13/18 10:25 Protonix - PO 40 mg DAILY BACILIO Administration Rosuvastatin Calcium 20 mg 06/12/18 22:00 06/12/18 23:31 Crestor - PO 20 mg HS BACILIO Administration Ticagrelor 90 mg 06/13/18 10:00 06/13/18 11:37 Brilinta - PO 90 mg BID BACILIO Administration ASSESSMENT AND PLAN: This is a 62 year old man with a history of HTN, CAD, CABG and stents, type 2 DM , diabetic neuropathy, osteomyelitis, MRSA who was advised by his .net architect to got to the ED because of an ulcer of his left 3rd toe. 1. Diabetic ulcer with cellulitis and likely osteomyelitis of left 3rd toe - Erythema much improved - Continue Zosyn, Vancomycin - MRI of left foot ordered - Will need amputation 2. HTN - Continue Coreg 3. Type 2 DM with peripheral neuropathy - Uses insulin pump at home - Continue Novolog sliding scale 4. CAD, history of CABG and stents - Continue aspirin, Coreg, Crestor - On Brilinta after recent PCI with stent
[2018-06-13] MEDS ORDERED: PT OWN MED DRAWER 7, Y5N ONE (20:58)
[2018-06-13] MEDS: LACTATED RINGERS SOLUTION 1,000 ML/1,000 ML INFUS.BAG IV SCH (21:15)
[2018-06-13] MEDS: CARVEDILOL 6.25 MG TABLET (FP) PO SCH (21:15)
[2018-06-13] MEDS: ROSUVASTATIN CA 20 MG TABLET (FP) PO SCH (21:16)
[2018-06-14] MEDS ORDERED: DEXTROSE 5%-WATER - 50 ML IVPB ONE ×3 (01:28→17:41)
[2018-06-14] MEDS ORDERED: PIPERACILLIN/TAZOBACTAM 3.375 GM VIAL IVPB ONE ×3 (01:28→17:41)
[2018-06-14] MEDS: PIPERACILLIN/TAZOB 3.375 GM 3.375 GM in DEXTROSE 5%-WATER - 50 ML IVPB SCH ×3 (01:40→19:08)
[2018-06-14] MEDS: INSULIN SLIDING SCALE (NOVOLOG) 1 VIAL SQ SCH ×4 (06:08→21:46)
[2018-06-14] MEDS: HEPARIN NA (PORCINE) 5,000 UNITS/ML 1ML VIAL SQ SCH ×3 (06:09→21:45)
--- NOTE | 2018-06-14 07:41 | PN ---
Progress Note (short form) - Note Progress Note: Podiatry F/U; Seen/evaluated at bedside NAD. Denies F/V/N/C/SOB/CP. afebrile. MRI obtained yesterday. BRITANY: L foot: pedal pulses 1/4, TG warm-warm. There is a third digit distal tuft diabetic ulcer down to bone, surrounding ischemic changes to the toe, (+) purulent drainage, (+) malodor, no soft tissue crepitus, no streaking cellulitis , no tenderness to palpation MRI: report pending Imp: 62 year old diabetic male with diabetic ulcer, osteomyelitis third digit 1. IV abx per ID 2. Awaiting MRI report 3. For third digit amputation Saturday. Please medically optimize patient. 4. Vascular f/u 5. Will follow Celso Floyd DPM
[2018-06-14 07:59] LABS: BASO % 0.5 % (0-2.0); EOS % 2.9 % (0-4.5); HEMATOCRIT 34.9 % (35.4-49); HEMOGLOBIN 11.7 GM/dL (11.7-16.9); LYMPH % 17.1 % (8-40); MCH 28.7 pg (25.7-33.7); MCHC 33.5 g/dl (32.0-35.9); MEAN CELL VOLUME 85.7 fl (80-96); MEAN PLT VOLUME 7.6 fl (7.5-11.1); MONO % 10.8 % (3.8-10.2); NEUT % 68.7 % (42.8-82.8); PLATELET COUNT 251 K/MM3 (134-434); RBC 4.07 M/mm3 (4.00-5.60); RDW 13.9 % (11.9-15.9); WHITE BLOOD COUNT 7.5 K/mm3 (4.0-10.0)
[2018-06-14 08:24] LABS: ANION GAP 7 MMOL/L (8-16); BLOOD UREA NITROGEN 16 mg/dL (7-18); CALCIUM 8.6 mg/dL (8.5-10.1); CHLORIDE 103 mmol/L (98-107); CO2 27 mmol/L (21-32); CREATININE 1.2 mg/dL (0.55-1.3); GLUCOSE,RANDOM 172 mg/dL (74-106); MAGNESIUM 2.5 mg/dL (1.8-2.4); PHOSPHOROUS 3.3 mg/dL (2.5-4.9); SODIUM 137 mmol/L (136-145)
[2018-06-14] MEDS ORDERED: PT OWN MED DRAWER 7, Y5N ONE ×2 (08:58→21:35)
[2018-06-14] MEDS: CARVEDILOL 6.25 MG TABLET (FP) PO SCH ×2 (09:26→21:45)
[2018-06-14] MEDS: ASPIRIN 81 MG CHEWABLE TABLETS PO SCH (09:30)
[2018-06-14] MEDS: TICAGRELOR 90 MG TABLET PO SCH ×2 (09:31→21:45)
[2018-06-14] MEDS: DULoxetine HCL 30 MG CAPSULE.DR (FP) PO SCH (09:31)
[2018-06-14] MEDS: PANTOPRAZOLE 40 MG TABLET (FP) PO SCH (09:31)
--- NOTE | 2018-06-14 11:15 | CON.CARD ---
Consult Consult Specialty:: Cardiology Referred by:: Medicine Reason for Consultation:: preop - History of Present Illness Chief Complaint: toe ulcer History of Present Illness: 62M h/o CAD (with prior VT s/p CABG in 2002, prior 2017 cath with multiple stents, most recent stent 05/15/18 SVG to RCA), HTN, NIDDM p/w L 3rd toe gangrene. Pain worse when walking, no chest pain, palps, dyspnea. Had not taken Brillinta for about 4 days, worried it was effecting his foot, now taking again. Sees Dr. Castillo for cardio. 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 Home Medications - Allergies Allergies/Adverse Reactions: Allergies Allergy/AdvReac Type Severity Reaction Status Date / Time No Known Allergies Allergy Verified 07/24/13 17:04 - Home Medications Home Medications: Ambulatory Orders Atorvastatin Ca [Lipitor] 20 mg PO HS #0 tablet 05/07/13 Losartan Potassium [Cozaar -] 25 mg PO DAILY #0 tablet 05/07/13 Aspirin 1 tab PO DAILY 06/12/18 Carvedilol [Coreg -] 6.25 mg PO BID 06/12/18 Dulaglutide [Trulicity] 1 dose IM WEEKLY 06/12/18 Duloxetine HCl 60 mg PO DAILY 06/12/18 Insulin Pump [Insulin Pump - (Nf)] 100 unit IM DAILY 06/12/18 Metformin HCl [Glucophage] 500 mg PO DAILY 06/12/18 Pantoprazole Sodium [Protonix -] 40 mg PO DAILY 06/12/18 Rosuvastatin [Crestor -] 20 mg PO HS 06/12/18 Ticagrelor [Brilinta] 90 mg PO BID 06/12/18 Metformin HCl [Metformin HCl ER] 500 mg PO BID 06/13/18 Family Disease History - Family Disease History Family Disease History: Diabetes: Mother (HTN), Heart Disease: Brother (CAD, CABG), Other: Mother Review of Systems - Review of Systems Constitutional: reports: No Symptoms Eyes: reports: No Symptoms HENT: reports: No Symptoms Neck: reports: No Symptoms Cardiovascular: reports: No Symptoms Respiratory: reports: No Symptoms Gastrointestinal: reports: No Symptoms Genitourinary: reports: No Symptoms Musculoskeletal: reports: No Symptoms Integumentary: reports: No Symptoms Neurological: reports: No Symptoms Endocrine: reports: No Symptoms Hematology/Lymphatic: reports: No Symptoms Psychiatric: reports: No Symptoms Vital Signs: Vital Signs Temperature 97.9 F 06/14/18 05:51 Pulse Rate 60 06/14/18 05:51 Respiratory Rate 18 06/14/18 05:51 Blood Pressure 118/68 06/14/18 05:51 O2 Sat by Pulse Oximetry (%) 98 06/13/18 21:00 Constitutional: Yes: Well Nourished, No Distress, Calm Eyes: Yes: Conjunctiva Clear, EOM Intact HENT: Yes: Atraumatic, Normocephalic Neck: Yes: Supple, Trachea Midline Respiratory: Yes: Regular, CTA Bilaterally Gastrointestinal: Yes: Normal Bowel Sounds, Soft Cardiovascular: Yes: Regular Rate and Rhythm JVD: No Carotid Bruit: No PMI: Non-Displaced Heart Sounds: Yes: S1, S2 Murmur: No: Systolic Murmur Musculoskeletal: No: Back Pain Extremities: Yes: Other (bandages R foot) Edema: No Peripheral Pulses WNL: No Peripheral Pulses: 1+ Left Doralis Pedis Integumentary: No: Jaundice Neurological: Yes: Alert, Oriented Psychiatric: No: Agitated - Other Data Labs, Other Data: CBC, BMP 06/14/18 06:15 06/14/18 06:15 INR, PTT INR 1.23 (0.83-1.09) H 06/13/18 05:30 Assessment/Plan cardiac cath [facility] [place]/15/18, 70-80 % SVG to RPDA 70-80 % RPDA after anastomosis site Occluded mLAD Patent stent In Proximal Cx with mild diffuse disease distally Patent OCONNELL-LAD filling retrograde mLAD and Large diagonal Successful SVG to RCA PCI EKG: sinus, IRBBB, no ischemic changes 62M h/o CAD (with prior VT s/p CABG in 2002, prior 2016 cath with multiple stents, most recent stent 05/15/18 SVG to RCA), HTN, NIDDM p/w L 3rd toe gangrene Gangrene, preop consult - plan for amputation per podiatry - patient had recent stent placement in bypass graft 05/15/18, however has osteomyelitis of L 3rd toe requiring amputation, would proceed as planned - has been asymptomatic and stable from cardiac perspective - would continue brillinta and aspirin perioperatively as well as coreg given stent placed <1 month ago CAD s/p CABG, recent stent - stent placement after viability study - asymptomatic - EKG stable - continue aspirin, statin, brillinta, bb HTN - stable on home meds, continue DM - manage per primary
--- NOTE | 2018-06-14 11:56 | PN ---
Physical Exam: SUBJECTIVE: Patient seen and examined at bedside this morning. No acute events overnight. Patient resting comfortably in bed and offers no complaints. OBJECTIVE: Vital Signs Temperature 97.9 F 06/14/18 05:51 Pulse Rate 60 06/14/18 05:51 Respiratory Rate 18 06/14/18 05:51 Blood Pressure 118/68 06/14/18 05:51 O2 Sat by Pulse Oximetry (%) 98 06/13/18 21:00 GENERAL: The patient is awake, alert, and fully oriented, in no acute distress. HEAD: Normal with no signs of trauma. EYES: PERRLA, EOMI, sclera anicteric, conjunctiva clear. ENT: oropharynx clear without exudates, moist mucous membranes. NECK: Trachea midline, full range of motion, supple. LUNGS: Breath sounds equal, clear to auscultation bilaterally. HEART: Regular rate and rhythm, S1, S2 without murmur, rub or gallop. ABDOMEN: Soft, nontender, nondistended, normoactive bowel sounds. EXTREMITIES: RLE: 2+ pulses, warm, well-perfused, no edema. LLE: +2 pulses, +1 edema and minimal erythema and warmth now just limited to the foot, no tenderness, +gangrenous 3rd toe NEUROLOGICAL: Cranial nerves II through XII grossly intact. Normal speech, gait not observed. PSYCH: Normal mood, normal affect. SKIN: Warm, dry, normal turgor, no rashes or lesions noted Laboratory Results - last 24 hr 06/13/18 06/13/18 06/14/18 16:48 21:12 05:30 WBC RBC Hgb Hct MCV MCH MCHC RDW Plt Count MPV Absolute Neuts (auto) Neutrophils % Lymphocytes % Monocytes % Eosinophils % Basophils % Nucleated RBC % Sodium Potassium Chloride Carbon Dioxide Anion Gap BUN Creatinine Creat Clearance w eGFR POC Glucometer 232 174 158 Random Glucose Calcium Phosphorus Magnesium 06/14/18 06/14/18 06/14/18 06:15 06:15 11:33 WBC 7.5 RBC 4.07 Hgb 11.7 Hct 34.9 L MCV 85.7 MCH 28.7 MCHC 33.5 RDW 13.9 Plt Count 251 MPV 7.6 Absolute Neuts (auto) 5.1 Neutrophils % 68.7 Lymphocytes % 17.1 Monocytes % 10.8 H Eosinophils % 2.9 Basophils % 0.5 Nucleated RBC % 0 Sodium 137 Potassium 4.0 Chloride 103 Carbon Dioxide 27 Anion Gap 7 L BUN 16 Creatinine 1.2 Creat Clearance w eGFR 61.55 POC Glucometer 210 Random Glucose 172 H Calcium 8.6 Phosphorus 3.3 Magnesium 2.5 H Active Medications Generic Name Dose Route Start Last Admin Trade Name Freq PRN Reason Stop Dose Admin Aspirin 81 mg 06/13/18 10:00 06/14/18 09:30 Asa - PO 81 mg DAILY BACILIO Administration Carvedilol 6.25 mg 06/13/18 22:00 06/14/18 09:26 Coreg - PO Not Given BID BACILIO Duloxetine HCl 60 mg 06/13/18 10:00 06/14/18 09:31 Cymbalta - PO 60 mg DAILY BACILIO Administration Heparin Sodium (Porcine) 5,000 unit 06/13/18 14:00 06/14/18 06:09 Heparin - SQ 5,000 unit TID BACILIO Administration Lactated Ringer's 1,000 ml in 1,000 mls @ 75 mls/hr 06/12/18 21:00 06/13/18 21:15 Lactated Ringers Solution IV 75 mls/hr ASDIR BACILIO Administration Piperacillin Sod/Tazobactam 50 mls @ 100 mls/hr 06/13/18 18:00 06/14/18 09:30 Sod 3.375 gm/ Dextrose IVPB 100 mls/hr Q8H-IV BACILIO Administration Protocol Vancomycin HCl 1,000 mg/ 250 mls @ 200 mls/hr 06/13/18 13:00 06/13/18 14:15 Dextrose IVPB 200 mls/hr Q24H BACILIO Administration Protocol Insulin Aspart 1 vial 06/13/18 11:00 06/14/18 06:08 Novolog Vial Sliding Scale - SQ 2 units ACHS BACILIO Administration Protocol Pantoprazole Sodium 40 mg 06/13/18 10:00 06/14/18 09:31 Protonix - PO 40 mg DAILY BACILIO Administration Rosuvastatin Calcium 20 mg 06/12/18 22:00 06/13/18 21:16 Crestor - PO 20 mg HS BACILIO Administration Ticagrelor 90 mg 06/13/18 10:00 06/14/18 09:31 Brilinta - PO 90 mg BID BACILIO Administration -Left foot xray: Again noted is evidence of amputation of the great toe with calcification seen by the distal end of the first metatarsal and arthritic changes with questionable osteomyelitis involving the second toe PIP joint. The third toe appears swollen but there is no sign of gross bone destruction. The fourth and fifth toes appear partially flexed. ASSESSMENT/PLAN: Patient is a 62 year old male with past medical history of CAD s/p CABG (3 stents), IDDM, Diabetic Neuropathy, osteomyelitis (MRSA positive), and HTN presented from wound care clinic due to left 3rd toe gangrene that was noted about 10 days. #Left 3rd toe gangrene with cellulitis -Previous wound culture +MRSA -Left foot xray done -MRI done -Arterial US of LLE: decreased blood flow along the left leg -Vascular (Dr. Birmingham) consulted. -Podiatry (Dr. Floyd) consulted. Recommendations appreciated. -Will likely do amputation Saturday. -ID (Dr. Shaffer) consulted. Recommendations appreciated. -Continue Vanc/Zosyn for now -Blood culture no growth x24 hrs #IDDM -Hold home meds -Insulin sliding scale for now -BGM ACHS #HERMINIO: improved -Will hold Losartan -Avoid nephrotoxic agents #HTN -Coreg 6.25mg BID #CAD -Continue ASA 81mg -Crestor 20mg PO HS -On Ticagrelor for recent stent placement -Cardiology (Dr. Woodard) consulted. Recommendations appreciated. -Would continue Brillinta and aspirin perioperatively as well as Coreg given stent placed <1 month ago -Asymptomatic and stable from cardiac perspective -would proceed with surgery as planned #FEN -IV LR @75cc/hr -Electrolytes wnl, routine bmp monitoring -Diabetic/Sodium restricted diet #Prophylaxis -Heparin 5000units sq tid #Disposition -full code -MRSA isolation Visit type - Emergency Visit Emergency Visit: Yes ED Registration Date: 06/12/18 Care time: The patient presented to the Emergency Department on the above date and was hospitalized for further evaluation of their emergent condition. - New Patient This patient is new to me today: No - Critical Care Critical Care patient: No
--- NOTE | 2018-06-14 13:13 | PN ---
Teaching Attending Note Name of Resident: Reny Krueger ATTENDING PHYSICIAN STATEMENT I saw and evaluated the patient. I reviewed the resident's note and discussed the case with the resident. I agree with the resident's findings and plan as documented. SUBJECTIVE: No fever or chills. no pain. OBJECTIVE: NAD Cv : RRR, no MRG lungs: CTAB Ext : no edema or erythema on RLe. s/p big toe amputation on both sides. L leg with slight edema and erythema. L third digit with back discolorationand plantar ulcer with no discharge. decreased sensation to light touch in feet. DP 2+ b/l, unable to feel PT b/l. ASSESSMENT AND PLAN: 62 y/o man with h/o CAD, s/p CABG, s/p stenting 05/13, Dm II, diabetic neuropathy , HTN, OM, toe amputations , MRSA infections and other medical problems who presented with third toe drainage 1- L third toe infected ulcer with cellulitis of foot/leg. probably OM in 3rd digit. - cont Abx . blood cx neg - MRI report pending - for toe amputsation on Saturday - medically optimized , and recs to cont antiplatelet meds - decrease flow in LLE arterial circulation. Dp 2+ though. Needs vascular follow up. 2- CAD s/p recent stenting: - cont BB and dual anti platelet agents 3- HTN: cont coreg 4- DM: sugar needs to be better controlled for wound healing after sx. patient does not remember his basal rate or any details about his pump. - cont SSI - add levemir at 10 units in am 5- DVT px : heparin, to be held the night before his sx
[2018-06-14] MEDS ORDERED: INSULIN (LEVEMIR) 100 UNITS/ML UNITS SQ ONE (13:15)
[2018-06-14] MEDS: VANCOMYCIN 1,000 MG in DEXTROSE 5%-WATER - 250 ML IVPB SCH (14:56)
[2018-06-14] MEDS: ROSUVASTATIN CA 20 MG TABLET (FP) PO SCH (21:45)
[2018-06-15] MEDS ORDERED: DEXTROSE 5%-WATER - 50 ML IVPB ONE ×3 (01:28→16:54)
[2018-06-15] MEDS ORDERED: PIPERACILLIN/TAZOBACTAM 3.375 GM VIAL IVPB ONE ×3 (01:28→16:54)
[2018-06-15] MEDS: PIPERACILLIN/TAZOB 3.375 GM 3.375 GM in DEXTROSE 5%-WATER - 50 ML IVPB SCH ×3 (01:53→17:24)
[2018-06-15] MEDS: INSULIN (LEVEMIR) 100 UNITS/ML UNITS SQ SCH (06:20)
[2018-06-15] MEDS: INSULIN SLIDING SCALE (NOVOLOG) 1 VIAL SQ SCH ×4 (06:20→22:50)
[2018-06-15] MEDS: HEPARIN NA (PORCINE) 5,000 UNITS/ML 1ML VIAL SQ SCH ×3 (06:21→22:45)
--- NOTE | 2018-06-15 08:54 | PN ---
Physical Exam: SUBJECTIVE: Patient seen and examined. He has no complaints. OBJECTIVE: Vital Signs Period Temp Pulse Resp BP Sys/Pimentel Pulse Ox Last 24 Hr 97.8 F-98.1 F 57-66 18-18 89-128/40-66 98-100 GENERAL: The patient is awake, alert, and fully oriented, in no acute distress. LUNGS: Breath sounds equal, clear to auscultation bilaterally, no wheezes, no crackles, no accessory muscle use. HEART: Regular rate and rhythm, S1, S2 without murmur, rub or gallop. ABDOMEN: Obese, soft, nontender, nondistended, normoactive bowel sounds, no guarding, no rebound, no hepatosplenomegaly, no masses. EXTREMITIES: 2+ pulses, warm, well-perfused, no edema, no erythema. s/p amputations of bilateral 1st toes. Left 3rd toe ulcer to bone with surrounding black discoloration. Laboratory Results - last 24 hr 06/14/18 06/14/18 06/14/18 11:33 16:38 21:44 POC Glucometer 210 177 189 06/15/18 06:01 POC Glucometer 190 Active Medications Generic Name Dose Route Start Last Admin Trade Name Freq PRN Reason Stop Dose Admin Aspirin 81 mg 06/13/18 10:00 06/14/18 09:30 Asa - PO 81 mg DAILY BACILIO Administration Carvedilol 6.25 mg 06/13/18 22:00 06/14/18 21:45 Coreg - PO 6.25 mg BID BACILIO Administration Duloxetine HCl 60 mg 06/13/18 10:00 06/14/18 09:31 Cymbalta - PO 60 mg DAILY BACILIO Administration Heparin Sodium (Porcine) 5,000 unit 06/13/18 14:00 06/15/18 06:21 Heparin - SQ 5,000 unit TID BACILIO Administration Piperacillin Sod/Tazobactam 50 mls @ 100 mls/hr 06/13/18 18:00 06/15/18 01:53 Sod 3.375 gm/ Dextrose IVPB 100 mls/hr Q8H-IV BACILIO Administration Protocol Vancomycin HCl 1,000 mg/ 250 mls @ 200 mls/hr 06/13/18 13:00 06/14/18 14:56 Dextrose IVPB 200 mls/hr Q24H BACILIO Administration Protocol Insulin Aspart 1 vial 06/13/18 11:00 06/15/18 06:20 Novolog Vial Sliding Scale - SQ 2 units ACHS BACILIO Administration Protocol Insulin Detemir 10 units 06/15/18 07:00 06/15/18 06:20 Levemir Vial SQ 10 units AM BACILIO Administration Pantoprazole Sodium 40 mg 06/13/18 10:00 06/14/18 09:31 Protonix - PO 40 mg DAILY BACILIO Administration Rosuvastatin Calcium 20 mg 06/12/18 22:00 06/14/18 21:45 Crestor - PO 20 mg HS BACILIO Administration Ticagrelor 90 mg 06/13/18 10:00 06/14/18 21:45 Brilinta - PO 90 mg BID BACILIO Administration ASSESSMENT/PLAN: This is a 62 year old man with a history of HTN, CAD, CABG and stents, type 2 DM , diabetic neuropathy, osteomyelitis, MRSA who was 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 1. Diabetic ulcer with cellulitis and osteomyelitis of left 3rd toe - Erythema resolved - MRI shows no abscess or osteomyelitis, however on exam bone is exposed - Continue Zosyn, Vancomycin - Plan for amputation 06/17 2. HTN - Continue Coreg 3. Type 2 DM with peripheral neuropathy - Uses insulin pump at home - Continue Novolog sliding scale - Levemir started 4. CAD, history of CABG and stents - Had stent placed 1 month ago - Cardiology input appreciated - aspirin, Brilinta, Coreg to be continued perioperatively - Continue aspirin, Coreg, Crestor, Brilinta 5. DVT prophylaxis - On heparin subq - hold after 06/16 pm dose for surgery 06/17 Visit type - Emergency Visit Emergency Visit: Yes ED Registration Date: 06/12/18 Care time: The patient presented to the Emergency Department on the above date and was hospitalized for further evaluation of their emergent condition. - New Patient This patient is new to me today: No - Critical Care Critical Care patient: No - Discharge Referral Referred to [facility] Med [facility] No
[2018-06-15] MEDS ORDERED: PT OWN MED DRAWER 7, Y5N ONE ×2 (08:58→22:05)
[2018-06-15] MEDS: PANTOPRAZOLE 40 MG TABLET (FP) PO SCH (09:30)
[2018-06-15] MEDS: ASPIRIN 81 MG CHEWABLE TABLETS PO SCH (09:30)
[2018-06-15] MEDS: TICAGRELOR 90 MG TABLET PO SCH ×2 (09:30→22:45)
[2018-06-15] MEDS: DULoxetine HCL 30 MG CAPSULE.DR (FP) PO SCH (09:30)
[2018-06-15] MEDS: CARVEDILOL 6.25 MG TABLET (FP) PO SCH ×2 (09:30→22:45)
--- NOTE | 2018-06-15 10:26 | PN ---
Progress Note (short form) - Note Progress Note: s: no chest pain, palps, dizziness Current Medications Aspirin (Asa -) 81 mg PO DAILY [facility] Last Admin: 06/15/18 09:30 Dose: 81 mg Carvedilol (Coreg -) 6.25 mg PO BID [facility] Last Admin: 06/15/18 09:30 Dose: 6.25 mg Duloxetine HCl (Cymbalta -) 60 mg PO DAILY [facility] Last Admin: 06/15/18 09:30 Dose: 60 mg Heparin Sodium (Porcine) (Heparin -) 5,000 unit SQ TID [facility] Last Admin: 06/15/18 06:21 Dose: 5,000 unit Piperacillin Sod/Tazobactam (Sod 3.375 gm/ Dextrose) 50 mls @ 100 mls/hr IVPB Q8H-IV [facility]; Protocol Last Admin: 06/15/18 09:31 Dose: 100 mls/hr Vancomycin HCl 1,000 mg/ (Dextrose) 250 mls @ 200 mls/hr IVPB Q24H [facility]; Protocol Last Admin: 06/14/18 14:56 Dose: 200 mls/hr Insulin Aspart (Novolog Vial Sliding Scale -) 1 vial SQ ACHS [facility]; Protocol Last Admin: 06/15/18 06:20 Dose: 2 units Insulin Detemir (Levemir Vial) 10 units SQ AM [facility] Last Admin: 06/15/18 06:20 Dose: 10 units Pantoprazole Sodium (Protonix -) 40 mg PO DAILY [facility] Last Admin: 06/15/18 09:30 Dose: 40 mg Rosuvastatin Calcium (Crestor -) 20 mg PO HS [facility] Last Admin: 06/14/18 21:45 Dose: 20 mg Ticagrelor (Brilinta -) 90 mg PO BID [facility] Last Admin: 06/15/18 09:30 Dose: 90 mg Vital Signs: Vital Signs Period Temp Pulse Resp BP Sys/Pimentel Pulse Ox Last 24 Hr 97.8 F-98.1 F 57-66 18-18 89-128/40-66 98-100 Constitutional: Yes: Well Nourished, No Distress, Calm Eyes: Yes: Conjunctiva Clear, EOM Intact HENT: Yes: Atraumatic, Normocephalic Neck: Yes: Supple, Trachea Midline Respiratory: Yes: Regular, CTA Bilaterally Gastrointestinal: Yes: Normal Bowel Sounds, Soft Cardiovascular: Yes: Regular Rate and Rhythm JVD: No Carotid Bruit: No PMI: Non-Displaced Heart Sounds: Yes: S1, S2 Murmur: No: Systolic Murmur Musculoskeletal: No: Back Pain Extremities: Yes: Other (bandages R foot) Edema: No Peripheral Pulses WNL: No Peripheral Pulses: 1+ Left Doralis Pedis Integumentary: No: Jaundice Neurological: Yes: Alert, Oriented Psychiatric: No: Agitated Assessment/Plan cardiac cath [facility] 05/15/18, 70-80 % SVG to RPDA 70-80 % RPDA after anastomosis site Occluded mLAD Patent stent In Proximal Cx with mild diffuse disease distally Patent OCONNELL-LAD filling retrograde mLAD and Large diagonal Successful SVG to RCA PCI EKG: sinus, IRBBB, no ischemic changes 62M h/o CAD (with prior [place] s/p CABG in 2002, prior 2016 cath with multiple stents, most recent stent 05/15/18 SVG to RCA), HTN, NIDDM p/w L 3rd toe gangrene Gangrene, preop consult - plan for amputation per podiatry - patient had recent stent placement in bypass graft 05/15/18, however has osteomyelitis of L 3rd toe requiring amputation, would proceed as planned - has been asymptomatic and stable from cardiac perspective - would continue brillinta and aspirin perioperatively as well as coreg given stent placed <1 month ago CAD s/p CABG, recent stent - stent placement after viability study - asymptomatic - EKG stable - continue aspirin, statin, brillinta, bb HTN - stable on home meds, continue DM - manage per primary
[2018-06-15] MEDS: VANCOMYCIN 1,000 MG in DEXTROSE 5%-WATER - 250 ML IVPB SCH (13:29)
--- NOTE | 2018-06-15 13:55 | PN ---
Progress Note (short form) - Note Progress Note: Podiatry F/U: Seen/evaluated at bedside NAD. Says that swelling/redness to the leg improved. Denies F/V/N/C?SOB/CP. AFebrile. BRITANY: L foot: pedal pulses 1/4, TG wnl, CFT brisk to all remaining toes except 3rd. There is a distal tuft ulcer third digit probing to bone, gangrenous changes present distally, seropurulent drainage, no soft tissue crepitus, no streaking cellulitis. Imp: 62 year old diabetic male with osteomyelitis third digit left foot 1. Abx per ID 2. DSD L foot 3. For third digit amputation on Saturday. Okay to keep brillinta on during the surgery. Will follow. Celso Floyd DPM
[2018-06-15] MEDS: ROSUVASTATIN CA 20 MG TABLET (FP) PO SCH (22:45)
[2018-06-16] MEDS ORDERED: DEXTROSE 5%-WATER - 50 ML IVPB ONE ×3 (02:47→17:20)
[2018-06-16] MEDS ORDERED: PIPERACILLIN/TAZOBACTAM 3.375 GM VIAL IVPB ONE ×3 (02:47→17:20)
[2018-06-16] MEDS: PIPERACILLIN/TAZOB 3.375 GM 3.375 GM in DEXTROSE 5%-WATER - 50 ML IVPB SCH ×3 (03:23→17:53)
[2018-06-16 06:14] LABS: HEMOGLOBIN 11.6 GM/dL (11.7-16.9); MCH 29.4 pg (25.7-33.7); MEAN CELL VOLUME 86.5 fl (80-96); MEAN PLT VOLUME 7.6 fl (7.5-11.1); PLATELET COUNT 285 K/MM3 (134-434); RBC 3.93 M/mm3 (4.00-5.60); WHITE BLOOD COUNT 7.2 K/mm3 (4.0-10.0)
[2018-06-16] MEDS: INSULIN (LEVEMIR) 100 UNITS/ML UNITS SQ SCH (06:24)
[2018-06-16] MEDS: HEPARIN NA (PORCINE) 5,000 UNITS/ML 1ML VIAL SQ SCH ×3 (06:24→21:31)
[2018-06-16] MEDS: INSULIN SLIDING SCALE (NOVOLOG) 1 VIAL SQ SCH ×4 (06:26→21:31)
[2018-06-16 06:45] LABS: ANION GAP 6 MMOL/L (8-16); BLOOD UREA NITROGEN 14 mg/dL (7-18); CALCIUM 8.5 mg/dL (8.5-10.1); CHLORIDE 103 mmol/L (98-107); CO2 28 mmol/L (21-32); CREATININE 1.1 mg/dL (0.55-1.3); GLUCOSE,RANDOM 177 mg/dL (74-106); POTASSIUM 4.2 mmol/L (3.5-5.1); SODIUM 137 mmol/L (136-145)
[2018-06-16] MEDS: DULoxetine HCL 30 MG CAPSULE.DR (FP) PO SCH (09:54)
[2018-06-16] MEDS: PANTOPRAZOLE 40 MG TABLET (FP) PO SCH (09:54)
[2018-06-16] MEDS: CARVEDILOL 6.25 MG TABLET (FP) PO SCH ×2 (09:54→21:31)
[2018-06-16] MEDS: ASPIRIN 81 MG CHEWABLE TABLETS PO SCH (09:54)
[2018-06-16] MEDS: TICAGRELOR 90 MG TABLET PO SCH ×2 (09:54→21:31)
--- NOTE | 2018-06-16 10:28 | PN ---
Progress Note, Physician Chief Complaint: seen and examined. No acute distress. Denies CP or SOB - Current Medication List Current Medications: Active Medications Aspirin (Asa -) 81 mg PO DAILY [facility] Last Admin: 06/16/18 09:54 Dose: 81 mg Carvedilol (Coreg -) 6.25 mg PO BID [facility] Last Admin: 06/16/18 09:54 Dose: 6.25 mg Duloxetine HCl (Cymbalta -) 60 mg PO DAILY [facility] Last Admin: 06/16/18 09:54 Dose: 60 mg Heparin Sodium (Porcine) (Heparin -) 5,000 unit SQ TID [facility] Last Admin: 06/16/18 06:24 Dose: 5,000 unit Piperacillin Sod/Tazobactam (Sod 3.375 gm/ Dextrose) 50 mls @ 100 mls/hr IVPB Q8H-IV [facility]; Protocol Last Admin: 06/16/18 09:55 Dose: 100 mls/hr Vancomycin HCl 1,000 mg/ (Dextrose) 250 mls @ 200 mls/hr IVPB Q24H [facility]; Protocol Last Admin: 06/15/18 13:29 Dose: 200 mls/hr Insulin Aspart (Novolog Vial Sliding Scale -) 1 vial SQ ACHS [facility]; Protocol Last Admin: 06/16/18 06:26 Dose: 2 units Insulin Detemir (Levemir Vial) 10 units SQ AM [facility] Last Admin: 06/16/18 06:24 Dose: 10 units Pantoprazole Sodium (Protonix -) 40 mg PO DAILY [facility] Last Admin: 06/16/18 09:54 Dose: 40 mg Rosuvastatin Calcium (Crestor -) 20 mg PO HS [facility] Last Admin: 06/15/18 22:45 Dose: 20 mg Ticagrelor (Brilinta -) 90 mg PO BID [facility] Last Admin: 06/16/18 09:54 Dose: 90 mg - Objective Vital Signs: Vital Signs Temperature 98.2 F 06/16/18 06:00 Pulse Rate 57 L 06/16/18 06:00 Respiratory Rate 20 06/16/18 06:00 Blood Pressure 112/55 L 06/16/18 06:00 O2 Sat by Pulse Oximetry (%) 99 06/15/18 20:59 Constitutional: Yes: No Distress Eyes: Yes: Conjunctiva Clear Cardiovascular: Yes: Regular Rate and Rhythm Respiratory: Yes: CTA Bilaterally Gastrointestinal: Yes: Soft (NT) Edema: No Neurological: Yes: Alert, Oriented Labs: CBC, BMP 06/16/18 05:30 06/16/18 05:30 INR, PTT INR 1.23 (0.83-1.09) H 06/13/18 05:30 Laboratory Tests 06/16/18 06/16/18 05:30 05:30 WBC 7.2 Hgb 11.6 L Hct 34.0 L Plt Count 285 Sodium 137 Potassium 4.2 BUN 14 Creatinine 1.1 Assessment/Plan 62M h/o CAD with prior [place] s/p CABG in 2002, prior 2016 cath with multiple stents , most recent stent 05/15/18 SVG to RCA), HTN, NIDDM p/w L 3rd toe gangrene 1. Gangrene, preop consult: - plan for amputation per podiatry - patient had recent stent placement in bypass graft 05/15/18, however has osteomyelitis of L 3rd toe requiring amputation, would proceed as planned - has been asymptomatic and stable from cardiac perspective - would continue brillinta and aspirin perioperatively as well as coreg given stent placed <1 month ago 2. CAD s/p CABG, recent stent: - stent placement after viability study - asymptomatic - EKG stable - continue aspirin, statin, brillinta, bb 3. HTN: - stable on home meds, continue 4. DM: - manage per primary
--- NOTE | 2018-06-16 13:04 | PN ---
Teaching Attending Note Name of Resident: Reny Krueger ATTENDING PHYSICIAN STATEMENT I saw and evaluated the patient. I reviewed the resident's note and discussed the case with the resident. I agree with the resident's findings and plan as documented. SUBJECTIVE: No pain, no SOB , no PARR , no fever or chills OBJECTIVE: NAD Cv : RRR, no MRG lungs: CTAB Ext : no edema or erythema on RLe. s/p big toe amputation on both sides. no edema on legs . L third digit with back discoloration and plantar ulcer with sanguinous frothy discharge when squeezed. decreased sensation to light touch in feet. DP 2+ b/l ASSESSMENT AND PLAN: 62 y/o man with h/o CAD, s/p CABG, s/p stenting 05/13, Dm II, diabetic neuropathy , HTN, OM, toe amputations , MRSA infections and other medical problems who presented with third toe drainage 1- L third toe infected ulcer with cellulitis of foot/leg. gangrenous 3rd toe. no OM on MRI - cont Abx. blood cx neg - vanco trough tomorrow - Toe amputation tomorrow - seen by vascular for decrease flow in LLE arterial circulation. no note or Recs 2- CAD s/p recent stenting: - cont BB and dual anti platelet agents. 3- HTN: cont coreg 4- DM: - cont SSI - Cont levemir 10 units in am 5- DVT px : hold hepatin tonight
[2018-06-16] MEDS ORDERED: PT OWN MED DRAWER 7, Y5N ONE ×2 (13:20→21:24)
[2018-06-16] MEDS: VANCOMYCIN 1,000 MG in DEXTROSE 5%-WATER - 250 ML IVPB SCH (13:30)
--- NOTE | 2018-06-16 15:40 | PN ---
Physical Exam: SUBJECTIVE: Patient seen and examined at bedside this morning. No acute events overnight. Patient sitting comfortably in bed and has no complaints. OBJECTIVE: Vital Signs Temperature 98.1 F 06/16/18 13:53 Pulse Rate 57 L 06/16/18 13:53 Respiratory Rate 16 06/16/18 13:53 Blood Pressure 117/55 L 06/16/18 13:53 O2 Sat by Pulse Oximetry (%) 99 06/16/18 10:00 GENERAL: The patient is awake, alert, and fully oriented, in no acute distress. HEAD: Normal with no signs of trauma. EYES: PERRLA, EOMI, sclera anicteric, conjunctiva clear. ENT: oropharynx clear without exudates, moist mucous membranes. NECK: Trachea midline, full range of motion, supple. LUNGS: Breath sounds equal, clear to auscultation bilaterally. HEART: Regular rate and rhythm, S1, S2 without murmur, rub or gallop. ABDOMEN: Soft, nontender, nondistended, normoactive bowel sounds. EXTREMITIES: RLE: 2+ pulses, warm, well-perfused, no edema. LLE: +2 pulses, no erythema, no swelling, no warmth, no tenderness, +gangrenous 3rd toe NEUROLOGICAL: Cranial nerves II through XII grossly intact. Normal speech, gait not observed. PSYCH: Normal mood, normal affect. SKIN: Warm, dry, normal turgor, no rashes or lesions noted Laboratory Results - last 24 hr 06/15/18 06/15/18 06/16/18 16:42 22:49 05:30 WBC 7.2 RBC 3.93 L Hgb 11.6 L Hct 34.0 L MCV 86.5 MCH 29.4 MCHC 34.0 RDW 14.0 Plt Count 285 MPV 7.6 Sodium Potassium Chloride Carbon Dioxide Anion Gap BUN Creatinine Creat Clearance w eGFR POC Glucometer 195 167 Random Glucose Calcium 06/16/18 06/16/18 06/16/18 05:30 06:22 11:13 WBC RBC Hgb Hct MCV MCH MCHC RDW Plt Count MPV Sodium 137 Potassium 4.2 Chloride 103 Carbon Dioxide 28 Anion Gap 6 L BUN 14 Creatinine 1.1 Creat Clearance w eGFR 68.05 POC Glucometer 174 254 Random Glucose 177 H Calcium 8.5 Active Medications Generic Name Dose Route Start Last Admin Trade Name Freq PRN Reason Stop Dose Admin Aspirin 81 mg 06/13/18 10:00 06/16/18 09:54 Asa - PO 81 mg DAILY BACILIO Administration Carvedilol 6.25 mg 06/13/18 22:00 06/16/18 09:54 Coreg - PO 6.25 mg BID BACILIO Administration Duloxetine HCl 60 mg 06/13/18 10:00 06/16/18 09:54 Cymbalta - PO 60 mg DAILY BACILIO Administration Heparin Sodium (Porcine) 5,000 unit 06/13/18 14:00 06/16/18 13:30 Heparin - SQ 5,000 unit TID BACILIO Administration Piperacillin Sod/Tazobactam 50 mls @ 100 mls/hr 06/13/18 18:00 06/16/18 09:55 Sod 3.375 gm/ Dextrose IVPB 100 mls/hr Q8H-IV BACILIO Administration Protocol Vancomycin HCl 1,000 mg/ 250 mls @ 200 mls/hr 06/13/18 13:00 06/16/18 13:30 Dextrose IVPB 200 mls/hr Q24H BACILIO Administration Protocol Insulin Aspart 1 vial 06/13/18 11:00 06/16/18 12:09 Novolog Vial Sliding Scale - SQ 6 units ACHS BACILIO Administration Protocol Insulin Detemir 10 units 06/15/18 07:00 06/16/18 06:24 Levemir Vial SQ 10 units AM BACILIO Administration Pantoprazole Sodium 40 mg 06/13/18 10:00 06/16/18 09:54 Protonix - PO 40 mg DAILY BACILIO Administration Rosuvastatin Calcium 20 mg 06/12/18 22:00 06/15/18 22:45 Crestor - PO 20 mg HS BACILIO Administration Ticagrelor 90 mg 06/13/18 10:00 06/16/18 09:54 Brilinta - PO 90 mg BID BACILIO Administration -Left foot xray: Again noted is evidence of amputation of the great toe with calcification seen by the distal end of the first metatarsal and arthritic changes with questionable osteomyelitis involving the second toe PIP joint. The third toe appears swollen but there is no sign of gross bone destruction. The fourth and fifth toes appear partially flexed. -MRI: Extensive cellulitis of the foot. No osteomyelitis. No soft tissue abscess. There is enhancement of the inflamed soft tissues with contrast. -Arterial US of LLE: decreased blood flow along the left leg ASSESSMENT/PLAN: Patient is a 62 year old male with past medical history of CAD s/p CABG (3 stents), IDDM, Diabetic Neuropathy, osteomyelitis (MRSA positive), and HTN presented from wound care clinic due to left 3rd toe gangrene that was noted about 10 days. #Left 3rd toe gangrene with cellulitis -Previous wound culture +MRSA -Vascular (Dr. Birmingham) consulted. -Podiatry (Dr. Floyd) consulted. Recommendations appreciated. -For surgery tomorrow -ID (Dr. Shaffer) consulted. Recommendations appreciated. -Continue Vanc/Zosyn (day 5) -Blood culture no growth x72hrs #IDDM -Hold home meds -Insulin sliding scale for now -BGM ACHS #HERMINIO: improved -Will hold Losartan -Avoid nephrotoxic agents #HTN -Coreg 6.25mg BID #CAD -Continue ASA 81mg -Crestor 20mg PO HS -On Ticagrelor for recent stent placement -Cardiology (Dr. Woodard) consulted. Recommendations appreciated. -Would continue Brillinta and aspirin perioperatively as well as Coreg given stent placed <1 month ago -Asymptomatic and stable from cardiac perspective -would proceed with surgery as planned #FEN -IV LR @75cc/hr -Electrolytes wnl, routine bmp monitoring -Diabetic/Sodium restricted diet. NPO after midnight #Prophylaxis -Heparin 5000units sq tid - hold after midnight #Disposition -full code -MRSA isolation Visit type - Emergency Visit Emergency Visit: Yes ED Registration Date: 06/12/18 Care time: The patient presented to the Emergency Department on the above date and was hospitalized for further evaluation of their emergent condition. - New Patient This patient is new to me today: No - Critical Care Critical Care patient: No
[2018-06-16] MEDS: ROSUVASTATIN CA 20 MG TABLET (FP) PO SCH (21:31)
[2018-06-17] MEDS ORDERED: PIPERACILLIN/TAZOBACTAM 3.375 GM VIAL IVPB ONE ×3 (02:17→17:10)
[2018-06-17] MEDS ORDERED: DEXTROSE 5%-WATER - 50 ML IVPB ONE ×3 (02:18→17:10)
[2018-06-17] MEDS: PIPERACILLIN/TAZOB 3.375 GM 3.375 GM in DEXTROSE 5%-WATER - 50 ML IVPB SCH ×3 (02:35→17:17)
[2018-06-17] MEDS: INSULIN (LEVEMIR) 100 UNITS/ML UNITS SQ SCH (06:15)
[2018-06-17] MEDS: INSULIN SLIDING SCALE (NOVOLOG) 1 VIAL SQ SCH ×4 (06:16→21:23)
[2018-06-17] MEDS: CARVEDILOL 6.25 MG TABLET (FP) PO SCH ×2 (09:06→21:23)
[2018-06-17] MEDS: ASPIRIN 81 MG CHEWABLE TABLETS PO SCH (09:16)
[2018-06-17] MEDS: DULoxetine HCL 30 MG CAPSULE.DR (FP) PO SCH (09:16)
[2018-06-17] MEDS: PANTOPRAZOLE 40 MG TABLET (FP) PO SCH (09:16)
[2018-06-17] MEDS: TICAGRELOR 90 MG TABLET PO SCH ×2 (09:16→21:23)
--- NOTE | 2018-06-17 12:17 | PN ---
Progress Note (short form) - Note Progress Note: s: no chest pain, palps, dizziness Current Medications Aspirin (Asa -) 81 mg PO DAILY [facility] Last Admin: 06/17/18 09:16 Dose: Not Given Carvedilol (Coreg -) 6.25 mg PO BID [facility] Last Admin: 06/17/18 09:06 Dose: 6.25 mg Duloxetine HCl (Cymbalta -) 60 mg PO DAILY [facility] Last Admin: 06/17/18 09:16 Dose: Not Given Heparin Sodium (Porcine) (Heparin -) 5,000 unit SQ TID [facility] Last Admin: 06/16/18 21:31 Dose: 5,000 unit Piperacillin Sod/Tazobactam (Sod 3.375 gm/ Dextrose) 50 mls @ 100 mls/hr IVPB Q8H-IV [facility]; Protocol Last Admin: 06/17/18 09:06 Dose: 100 mls/hr Vancomycin HCl 1,000 mg/ (Dextrose) 250 mls @ 200 mls/hr IVPB Q24H [facility]; Protocol Last Admin: 06/16/18 13:30 Dose: 200 mls/hr Insulin Aspart (Novolog Vial Sliding Scale -) 1 vial SQ ACHS [facility]; Protocol Last Admin: 06/17/18 11:09 Dose: Not Given Insulin Detemir (Levemir Vial) 10 units SQ AM [facility] Last Admin: 06/17/18 06:15 Dose: Not Given Pantoprazole Sodium (Protonix -) 40 mg PO DAILY [facility] Last Admin: 06/17/18 09:16 Dose: Not Given Rosuvastatin Calcium (Crestor -) 20 mg PO HS [facility] Last Admin: 06/16/18 21:31 Dose: 20 mg Ticagrelor (Brilinta -) 90 mg PO BID [facility] Last Admin: 06/17/18 09:16 Dose: Not Given Vital Signs: Vital Signs Period Temp Pulse Resp BP Sys/Pimentel Pulse Ox Last 24 Hr 97.5 F-98.2 F 56-63 16-18 111-135/55-79 97 Constitutional: Yes: Well Nourished, No Distress, Calm Eyes: Yes: Conjunctiva Clear, EOM Intact HENT: Yes: Atraumatic, Normocephalic Neck: Yes: Supple, Trachea Midline Respiratory: Yes: Regular, CTA Bilaterally Gastrointestinal: Yes: Normal Bowel Sounds, Soft Cardiovascular: Yes: Regular Rate and Rhythm JVD: No Carotid Bruit: No PMI: Non-Displaced Heart Sounds: Yes: S1, S2 Murmur: No: Systolic Murmur Musculoskeletal: No: Back Pain Extremities: Yes: Other (bandages R foot) Edema: No Peripheral Pulses WNL: No Peripheral Pulses: 1+ Left Doralis Pedis Integumentary: No: Jaundice Neurological: Yes: Alert, Oriented Psychiatric: No: Agitated Assessment/Plan cardiac [place] [facility] [place], 70-80 % SVG to RPDA 70-80 % RPDA after anastomosis site Occluded mLAD Patent stent In Proximal Cx with mild diffuse disease distally Patent OCONNELL-LAD filling retrograde mLAD and Large diagonal Successful SVG to RCA PCI EKG: sinus, IRBBB, no ischemic changes 62M h/o CAD (with prior [place] s/p CABG in 2002, prior 2016 cath with multiple stents, most recent stent 05/15/18 SVG to RCA), HTN, NIDDM p/w L 3rd toe gangrene Gangrene, preop consult - plan for amputation per podiatry - patient had recent stent placement in bypass graft 05/15/18, however has osteomyelitis of L 3rd toe requiring amputation, would proceed as planned - has been asymptomatic and stable from cardiac perspective - would continue brillinta and aspirin perioperatively as well as coreg given stent placed <1 month ago CAD s/p CABG, recent stent - stent placement after viability study - asymptomatic - EKG stable - continue aspirin, statin, brillinta, bb HTN - stable on home meds, continue DM - manage per primary
[2018-06-17] MEDS: VANCOMYCIN 1,000 MG in DEXTROSE 5%-WATER - 250 ML IVPB SCH (13:00)
--- NOTE | 2018-06-17 13:07 | PN ---
Physical Exam: SUBJECTIVE: Patient seen and examined at bedside this morning. No acute events overnight. Patient has no complaints. He was kept on NPO after midnight. Surgery scheduled at 1pm. OBJECTIVE: Vital Signs Temperature 97.5 F L 06/17/18 05:48 Pulse Rate 60 06/17/18 05:48 Respiratory Rate 18 06/17/18 05:48 Blood Pressure 111/57 L 06/17/18 05:48 O2 Sat by Pulse Oximetry (%) 97 06/16/18 20:54 GENERAL: The patient is awake, alert, and fully oriented, in no acute distress. HEAD: Normal with no signs of trauma. EYES: PERRLA, EOMI, sclera anicteric, conjunctiva clear. ENT: oropharynx clear without exudates, moist mucous membranes. NECK: Trachea midline, full range of motion, supple. LUNGS: Breath sounds equal, clear to auscultation bilaterally. HEART: Regular rate and rhythm, S1, S2 without murmur, rub or gallop. ABDOMEN: Soft, nontender, nondistended, normoactive bowel sounds. EXTREMITIES: RLE: 2+ pulses, warm, well-perfused, no edema. LLE: +2 pulses, no erythema, no swelling, no warmth, no tenderness, +gangrenous 3rd toe NEUROLOGICAL: Cranial nerves II through XII grossly intact. Normal speech, gait not observed. PSYCH: Normal mood, normal affect. SKIN: Warm, dry, normal turgor, no rashes or lesions noted Laboratory Results - last 24 hr 06/16/18 06/16/18 06/16/18 07:50 16:09 21:30 POC Glucometer 140 210 Blood Type AB POSITIVE Antibody Screen Negative Prewarmed Antibody Srcn Negative 06/17/18 06/17/18 05:40 11:06 POC Glucometer 188 180 Blood Type Antibody Screen Prewarmed Antibody Srcn Active Medications Generic Name Dose Route Start Last Admin Trade Name Freq PRN Reason Stop Dose Admin Aspirin 81 mg 06/13/18 10:00 06/17/18 09:16 Asa - PO Not Given DAILY BACILIO Carvedilol 6.25 mg 06/13/18 22:00 06/17/18 09:06 Coreg - PO 6.25 mg BID BACILIO Administration Duloxetine HCl 60 mg 06/13/18 10:00 06/17/18 09:16 Cymbalta - PO Not Given DAILY BACILIO Heparin Sodium (Porcine) 5,000 unit 06/13/18 14:00 06/16/18 21:31 Heparin - SQ 5,000 unit TID BACILIO Administration Piperacillin Sod/Tazobactam 50 mls @ 100 mls/hr 06/13/18 18:00 06/17/18 09:06 Sod 3.375 gm/ Dextrose IVPB 100 mls/hr Q8H-IV BACILIO Administration Protocol Vancomycin HCl 1,000 mg/ 250 mls @ 200 mls/hr 06/13/18 13:00 06/16/18 13:30 Dextrose IVPB 200 mls/hr Q24H BACILIO Administration Protocol Insulin Aspart 1 vial 06/13/18 11:00 06/17/18 11:09 Novolog Vial Sliding Scale - SQ Not Given ACHS [facility] Protocol Insulin Detemir 10 units 06/15/18 07:00 06/17/18 06:15 Levemir Vial SQ Not Given AM BACILIO Pantoprazole Sodium 40 mg 06/13/18 10:00 06/17/18 09:16 Protonix - PO Not Given DAILY BACILIO Rosuvastatin Calcium 20 mg 06/12/18 22:00 06/16/18 21:31 Crestor - PO 20 mg HS BACILIO Administration Ticagrelor 90 mg 06/13/18 10:00 06/17/18 09:16 Brilinta - PO Not Given BID BACILIO -Left foot xray: Again noted is evidence of amputation of the great toe with calcification seen by the distal end of the first metatarsal and arthritic changes with questionable osteomyelitis involving the second toe PIP joint. The third toe appears swollen but there is no sign of gross bone destruction. The fourth and fifth toes appear partially flexed. -MRI: Extensive cellulitis of the foot. No osteomyelitis. No soft tissue abscess. There is enhancement of the inflamed soft tissues with contrast. -Arterial US of LLE: decreased blood flow along the left leg ASSESSMENT/PLAN: Patient is a 62 year old male with past medical history of CAD s/p CABG (3 stents), IDDM, Diabetic Neuropathy, osteomyelitis (MRSA positive), and HTN presented from wound care clinic due to left 3rd toe gangrene that was noted about 10 days. #Left 3rd toe gangrene with cellulitis -POD 0 -pain control as per anes -resume diet per surgery -MRSA nares screen negative. Contact precautions discontinued. -Vascular (Dr. Birmingham) consulted. -Podiatry (Dr. Floyd) consulted. Recommendations appreciated. -ID (Dr. Shaffer) consulted. Recommendations appreciated. -Vanc trough level - 5.6 -Will increase dose to Vancomycin 1g BID -Continue Vanc/Zosyn (day 6) -Blood culture no growth x72hrs #IDDM -Insulin Levemir 10units HS -Insulin sliding scale -BGM ACHS #HERMINIO: improved -Will hold Losartan -Avoid nephrotoxic agents #HTN -Coreg 6.25mg BID #CAD -Continue ASA 81mg -Crestor 20mg PO HS -On Ticagrelor for recent stent placement -Cardiology (Dr. Woodard) consulted. Recommendations appreciated. -Would continue Brillinta and aspirin perioperatively as well as Coreg given stent placed <1 month ago -Asymptomatic and stable from cardiac perspective -would proceed with surgery as planned #FEN -Not on any standing fluids -Electrolytes wnl, routine bmp monitoring -Diet as per surgery #Prophylaxis -Heparin 5000units sq tid #Disposition -full code Visit type - Emergency Visit Emergency Visit: Yes ED Registration Date: 06/12/18 Care time: The patient presented to the Emergency Department on the above date and was hospitalized for further evaluation of their emergent condition. - New Patient This patient is new to me today: No - Critical Care Critical Care patient: No
[2018-06-17] MEDS ORDERED: BUPIVACAINE HCL/PF 0.25% (2.5MG/ML) 10 ML VIAL ONE (13:28)
[2018-06-17] MEDS ORDERED: LIDOCAINE HCL 1%, 10 MG/ML (20ML VIAL) ONE (13:28)
[2018-06-17] MEDS ORDERED: MIDAZOLAM HCL 2 MG/2 ML SINGLE DOSE VIAL ONE ×2 (13:32→13:45)
[2018-06-17] MEDS ORDERED: LIDOCAINE HCL 1%, 10 MG/ML (20ML VIAL) INF ONE (14:00)
[2018-06-17] MEDS ORDERED: ONDANSETRON 4 MG/2 ML VIAL IVPUSH PRN (14:41)
[2018-06-17] MEDS: LACTATED RINGERS SOLUTION 1,000 ML IV SCH (15:48)
--- NOTE | 2018-06-17 16:50 | OP ---
Operative Note - Note: Operative Date: 06/17/18 Pre-Operative Diagnosis: left third digit gangrene, osteomyelitis Operation: left third digit amputation Post-Operative Diagnosis: Same as Pre-op Surgeon: Trev Floyd Anesthesia: Local, MAC Specimens Removed: bone, left third digit Estimated Blood Loss (mls): 20 Operative Report Dictated: Yes
--- NOTE | 2018-06-17 16:52 | PN ---
Teaching Attending Note Name of Resident: Reny Krueger ATTENDING PHYSICIAN STATEMENT I saw and evaluated the patient. I reviewed the resident's note and discussed the case with the resident. I agree with the resident's findings and plan as documented. SUBJECTIVE: No fever or chills. No PARR , no pain in foot. OBJECTIVE: NAD Cv : RRR, no MRG lungs: CTAB Ext : no edema or erythema on legs. L foot was not examined today ASSESSMENT AND PLAN: 62 y/o man with h/o CAD, s/p CABG, s/p stenting 05/13, Dm II, diabetic neuropathy , HTN, OM, toe amputations , MRSA infections and other medical problems who presented with third toe drainage 1- L third toe infected ulcer with cellulitis of foot/leg. gangrenous 3rd toe. no OM on MRI - amputation today - vanco trough with low level . increase to 1 g q 12 h instead of q 24 hr. will ask Id about abx plan after the amputation. - cont zosyn 2- CAD s/p recent stenting: - cont BB and dual anti platelet agents. 3- HTN: cont coreg 4- DM: - Cont SSI - Cont levemir 10 units in am 5- DVT px: resume heparin this evening after the sx. dispo plan depends on d/w Id and Podiatry for appropriate timing and post dc plan
[2018-06-17] MEDS ORDERED: ceFAZolin SODIUM 1 GM VIAL ONE (18:02)
[2018-06-17] MEDS ORDERED: oxyCODONE HCL 5 MG TABLET PO PRN (18:24)
--- NOTE | 2018-06-17 20:58 | OP ---
DATE OF OPERATION: 06/17/2018 PREOPERATIVE DIAGNOSES: Left 3rd digit gangrene and osteomyelitis. POSTOPERATIVE DIAGNOSES: Left 3rd digit gangrene and osteomyelitis. PROCEDURE: Left 3rd digit amputation. SURGEON: Trev Floyd DPM MANAGER INSURANCE: None. HEMOSTASIS: Pneumatic ankle tourniquet. ANESTHESIA: IV sedation with local. ESTIMATED BLOOD LOSS: Minimal. PATHOLOGY: Left 3rd toe and proximal bone, left foot. The patient was brought to the operating room and placed on the operating table in the supine position. A pneumatic ankle tourniquet was applied to the left ankle and set to 250 mmHg. Following the induction of IV sedation, local anesthesia was achieved utilizing 10 mL of 2% lidocaine plain. The left foot was scrubbed, prepped, and draped in usual sterile fashion. Attention was directed to the left 3rd toe where there were gangrenous changes with exposed bone. I began by performing a 3-cm linear longitudinal incision overlying the 3rd metatarsal. The incision was carried distally in a fishmouth-like incision to circumvent the 3rd toe. The 3rd digit was disarticulated at the level of the metatarsophalangeal joint. The entirety of the 3rd toe was removed and sent to Pathology for further analysis. Next, the periosteal structures were reflected form the 3rd metatarsal head. A portion of the 3rd metatarsal head was resected utilizing the sagittal saw. Portion of this bone was sectioned for both bone pathology and bone culture. The 3rd digit was sent separate as Pathology. Surgical site was copiously irrigated with sterile saline mixed with bacitracin. The surgical site was loosely packed with 1/4-inch Iodoform packing. The remainder of the incision was loosely coapted utilizing 3-0 nylon in a simple interrupted suture fashion. Prior to closure, the tourniquet was deflated to inspect for any bleeders, and none were identified. Following the conclusion of the procedure, the incision was covered with Xeroform and a sterile compressive dressing was applied to the left foot consisting of sterile gauze, Jayda, Kerlix, and an Tico wrap. The patient tolerated the procedure and anesthesia well, without complications. He was transferred from the operating room to the recovery unit with vital signs stable and neurovasculature intact to the left foot. LARRY REED/[id number]
[2018-06-17] MEDS ORDERED: PT OWN MED DRAWER 7, Y5N ONE (21:15)
[2018-06-17] MEDS: ROSUVASTATIN CA 20 MG TABLET (FP) PO SCH (21:23)
[2018-06-17] MEDS: VANCOMYCIN 1 GM PREMIX - 1 GM/200 ML BAG IVPB SCH (21:23)
[2018-06-18] MEDS ORDERED: PIPERACILLIN/TAZOBACTAM 3.375 GM VIAL IVPB ONE ×3 (02:23→17:41)
[2018-06-18] MEDS ORDERED: DEXTROSE 5%-WATER - 50 ML IVPB ONE ×3 (02:23→17:41)
[2018-06-18] MEDS: PIPERACILLIN/TAZOB 3.375 GM 3.375 GM in DEXTROSE 5%-WATER - 50 ML IVPB SCH ×3 (02:30→17:46)
[2018-06-18 06:03] LABS: BASO % 0.6 % (0-2.0); EOS % 2.3 % (0-4.5); HEMATOCRIT 33.3 % (35.4-49); HEMOGLOBIN 11.3 GM/dL (11.7-16.9); LYMPH % 15.3 % (8-40); MCH 29.2 pg (25.7-33.7); MCHC 33.9 g/dl (32.0-35.9); MEAN CELL VOLUME 86.1 fl (80-96); MEAN PLT VOLUME 7.8 fl (7.5-11.1); NEUT % 73.8 % (42.8-82.8); PLATELET COUNT 308 K/MM3 (134-434); RBC 3.86 M/mm3 (4.00-5.60); WHITE BLOOD COUNT 9.3 K/mm3 (4.0-10.0)
[2018-06-18] MEDS: INSULIN (LEVEMIR) 100 UNITS/ML UNITS SQ SCH (06:33)
[2018-06-18] MEDS: INSULIN SLIDING SCALE (NOVOLOG) 1 VIAL SQ SCH ×4 (06:33→21:49)
[2018-06-18] MEDS: LACTATED RINGERS SOLUTION 1,000 ML IV SCH ×2 (06:36→17:46)
[2018-06-18 06:48] LABS: ANION GAP 7 MMOL/L (8-16); BLOOD UREA NITROGEN 14 mg/dL (7-18); CALCIUM 8.8 mg/dL (8.5-10.1); CHLORIDE 100 mmol/L (98-107); CO2 26 mmol/L (21-32); CREATININE 1.2 mg/dL (0.55-1.3); GLUCOSE,RANDOM 216 mg/dL (74-106); MAGNESIUM 2.3 mg/dL (1.8-2.4); PHOSPHOROUS 3.2 mg/dL (2.5-4.9); POTASSIUM 4.3 mmol/L (3.5-5.1); SODIUM 133 mmol/L (136-145)
--- NOTE | 2018-06-18 10:31 | PN ---
Progress Note (short form) - Note Progress Note: s: no chest pain, palps, dizziness Current Medications Aspirin (Asa -) 81 mg PO DAILY [facility] Last Admin: 06/17/18 09:16 Dose: Not Given Carvedilol (Coreg -) 6.25 mg PO BID [facility] Last Admin: 06/17/18 21:23 Dose: 6.25 mg Duloxetine HCl (Cymbalta -) 60 mg PO DAILY [facility] Last Admin: 06/17/18 09:16 Dose: Not Given Heparin Sodium (Porcine) (Heparin -) 5,000 unit SQ TID [facility] Last Admin: 06/16/18 21:31 Dose: 5,000 unit Piperacillin Sod/Tazobactam (Sod 3.375 gm/ Dextrose) 50 mls @ 100 mls/hr IVPB Q8H-IV [facility]; Protocol Last Admin: 06/18/18 02:30 Dose: 100 mls/hr Lactated Ringer's (Lactated Ringers Solution) 1,000 mls @ 75 mls/hr IV ASDIR [facility] Last Admin: 06/18/18 06:36 Dose: 75 mls/hr Vancomycin HCl (Vancomycin 1 Gm Premix -) 1 gm in 200 mls @ 200 mls/hr IVPB BID [facility]; Protocol Last Admin: 06/17/18 21:23 Dose: 200 mls/hr Insulin Aspart (Novolog Vial Sliding Scale -) 1 vial SQ ACHS [facility]; Protocol Last Admin: 06/18/18 06:33 Dose: 2 units Insulin Detemir (Levemir Vial) 10 units SQ AM [facility] Last Admin: 06/18/18 06:33 Dose: 10 units Oxycodone HCl (Roxicodone -) 5 mg PO Q4H PRN PRN Reason: PAIN LEVEL 1-5 Last Admin: 06/17/18 21:26 Dose: 5 mg Pantoprazole Sodium (Protonix -) 40 mg PO DAILY [facility] Last Admin: 06/17/18 09:16 Dose: Not Given Rosuvastatin Calcium (Crestor -) 20 mg PO HS [facility] Last Admin: 06/17/18 21:23 Dose: 20 mg Ticagrelor (Brilinta -) 90 mg PO BID [facility] Last Admin: 06/17/18 21:23 Dose: 90 mg Vital Signs: Vital Signs Period Temp Pulse Resp BP Sys/Pimentel Pulse Ox Last 24 Hr 97.5 F-98.8 F 52-74 14-20 111-159/62-78 97-98 Constitutional: Yes: Well Nourished, No Distress, Calm Eyes: Yes: Conjunctiva Clear, EOM Intact HENT: Yes: Atraumatic, Normocephalic Neck: Yes: Supple, Trachea Midline Respiratory: Yes: Regular, CTA Bilaterally Gastrointestinal: Yes: Normal Bowel Sounds, Soft Cardiovascular: Yes: Regular Rate and Rhythm JVD: No Carotid Bruit: No PMI: Non-Displaced Heart Sounds: Yes: S1, S2 Murmur: No: Systolic Murmur Musculoskeletal: No: Back Pain Extremities: Yes: Other (bandages R foot) Edema: No Peripheral Pulses WNL: No Peripheral Pulses: 1+ Left Doralis Pedis Integumentary: No: Jaundice Neurological: Yes: Alert, Oriented Psychiatric: No: Agitated Assessment/Plan cardiac cath [facility] 05/15/18, 70-80 % SVG to RPDA 70-80 % RPDA after anastomosis site Occluded mLAD Patent stent In Proximal Cx with mild diffuse disease distally Patent OCONNELL-LAD filling retrograde mLAD and Large diagonal Successful SVG to RCA PCI EKG: sinus, IRBBB, no ischemic changes 62M h/o CAD (with prior [place] s/p CABG in 2002, prior 2017 cath with multiple stents, most recent stent 05/15/18 SVG to RCA), HTN, NIDDM p/w L 3rd toe gangrene Gangrene, preop consult - s/p toe amputation, manage per podiatry, ID CAD s/p CABG, recent stent - stent placement after viability study - asymptomatic - EKG stable - continue aspirin, statin, brillinta, bb HTN - stable on home meds, continue DM - manage per primary
--- NOTE | 2018-06-18 10:37 | PN ---
Progress Note (short form) - Note Progress Note: PODIATRY POST OP NOTE 62 y/o male seen and evaluated at bedside s/o left foot 3rd digit amputation. States overnight did have minimal amount of pain but that as of today it has resolved. States that he does not have any other pedal complaints. Is wishing to leave as soon as possible. States that he did have HBO in the past but would rather not look into the option at this time unless necessary in future. Denies any f/c/n/v/sob. O: left foot suture line intact, warm to touch, no erythema, no purulence, packing intact w/o signs of infection, mild maceration noted, no dehisence noted A: left foot s/o 3rd digit amputation P: Evaluated and reviewed Discussed [facility] patient labs reviewed f/u cultures Packing removed w/o complication, redressed with wet to dry DSD Can be WBAT to the left heel, apply surgical shoe as needed, Keep dressing CDI Can reinforce as needed. Will f/u.
--- NOTE | 2018-06-18 10:39 | PN ---
Progress Note (short form) - Note Progress Note: Anesthesiology Post-op 62 y.o. man POD#1 s/p amputation of left 3rd toe under MAC and local anesthesia. Pt. states he is feeling well, pain is improved today. No apparent anesthesia- related issues. VSS. 62 y.o. man with stable post-operative course. Continue management as per primary team.
[2018-06-18] MEDS: ASPIRIN 81 MG CHEWABLE TABLETS PO SCH (10:59)
[2018-06-18] MEDS: DULoxetine HCL 30 MG CAPSULE.DR (FP) PO SCH (10:59)
[2018-06-18] MEDS: TICAGRELOR 90 MG TABLET PO SCH ×2 (10:59→21:50)
[2018-06-18] MEDS: CARVEDILOL 6.25 MG TABLET (FP) PO SCH ×2 (11:00→21:49)
[2018-06-18] MEDS: PANTOPRAZOLE 40 MG TABLET (FP) PO SCH (11:00)
--- NOTE | 2018-06-18 11:34 | PN ---
Teaching Attending Note Name of Resident: Reny Krueger ATTENDING PHYSICIAN STATEMENT I saw and evaluated the patient. I reviewed the resident's note and discussed the case with the resident. I agree with the resident's findings and plan as documented. SUBJECTIVE: Patient has no complaints. He says pain is controlled. OBJECTIVE: Vital Signs Period Temp Pulse Resp BP Sys/Pimentel Pulse Ox Last 24 Hr 97.5 F-98.8 F 52-74 14-20 111-159/62-78 97-98 HEART: S1S2, RRR LUNGS: Clear ABDOMEN: Obese, soft, non-tender, non-distended, normal BS EXTREMITIES: No edema, left foot wrapped Laboratory Results - last 24 hr 06/17/18 06/17/18 06/17/18 12:42 17:24 21:20 WBC RBC Hgb Hct MCV MCH MCHC RDW Plt Count MPV Absolute Neuts (auto) Neutrophils % Lymphocytes % Monocytes % Eosinophils % Basophils % Nucleated RBC % Sodium Potassium Chloride Carbon Dioxide Anion Gap BUN Creatinine Creat Clearance w eGFR POC Glucometer 164 215 Random Glucose Calcium Phosphorus Magnesium Vancomycin Pre-Dose 5.6 L 06/18/18 06/18/18 06/18/18 05:30 05:30 06:32 WBC 9.3 RBC 3.86 L Hgb 11.3 L Hct 33.3 L MCV 86.1 MCH 29.2 MCHC 33.9 RDW 14.0 Plt Count 308 MPV 7.8 Absolute Neuts (auto) 6.9 Neutrophils % 73.8 Lymphocytes % 15.3 Monocytes % 8.0 Eosinophils % 2.3 Basophils % 0.6 Nucleated RBC % 0 Sodium 133 L Potassium 4.3 Chloride 100 Carbon Dioxide 26 Anion Gap 7 L BUN 14 Creatinine 1.2 Creat Clearance w eGFR 61.55 POC Glucometer 194 Random Glucose 216 H Calcium 8.8 Phosphorus 3.2 Magnesium 2.3 Vancomycin Pre-Dose Current Medications Generic Name Dose Route Start Last Admin Trade Name Freq PRN Reason Stop Dose Admin Aspirin 81 mg 06/13/18 10:00 06/18/18 10:59 Asa - PO 81 mg DAILY BACILIO Administration Carvedilol 6.25 mg 06/13/18 22:00 06/18/18 11:00 Coreg - PO 6.25 mg BID BACILIO Administration Duloxetine HCl 60 mg 06/13/18 10:00 06/18/18 10:59 Cymbalta - PO 60 mg DAILY BACILIO Administration Heparin Sodium (Porcine) 5,000 unit 06/13/18 14:00 06/16/18 21:31 Heparin - SQ 5,000 unit TID BACILIO Administration Piperacillin Sod/Tazobactam 50 mls @ 100 mls/hr 06/13/18 18:00 06/18/18 02:30 Sod 3.375 gm/ Dextrose IVPB 100 mls/hr Q8H-IV BACILIO Administration Protocol Lactated Ringer's 1,000 mls @ 75 mls/hr 06/17/18 14:45 06/18/18 06:36 Lactated Ringers Solution IV 75 mls/hr ASDIR BACILIO Administration Vancomycin HCl 1 gm in 200 mls @ 200 mls/hr 06/17/18 22:00 06/17/18 21:23 Vancomycin 1 Gm Premix - IVPB 200 mls/hr BID BACILIO Administration Protocol Insulin Aspart 1 vial 06/13/18 11:00 06/18/18 06:33 Novolog Vial Sliding Scale - SQ 2 units ACHS BACILIO Administration Protocol Insulin Detemir 10 units 06/15/18 07:00 06/18/18 06:33 Levemir Vial SQ 10 units AM BACILIO Administration Oxycodone HCl 5 mg 06/17/18 18:24 06/17/18 21:26 Roxicodone - PO 5 mg Q4H PRN Administration PAIN LEVEL 1-5 Pantoprazole Sodium 40 mg 06/13/18 10:00 06/18/18 11:00 Protonix - PO 40 mg DAILY BACILIO Administration Rosuvastatin Calcium 20 mg 06/12/18 22:00 06/17/18 21:23 Crestor - PO 20 mg HS BACILIO Administration Ticagrelor 90 mg 06/13/18 10:00 06/18/18 10:59 Brilinta - PO 90 mg BID BACILIO Administration ASSESSMENT AND PLAN: This is a 62 year old man with a history of HTN, CAD, CABG and stents, type 2 DM , diabetic neuropathy, osteomyelitis, MRSA who was advised by his hull molder to got to the ED because of an ulcer of his left 3rd toe. 1. Diabetic ulcer with cellulitis and osteomyelitis of left 3rd toe - Erythema resolved - MRI shows no abscess or osteomyelitis, however on exam bone is exposed - s/p left third toe amputation 4/23 - wound and bone cultures pending - Continue Zosyn, Vancomycin 2. HTN - Continue Coreg 3. Type 2 DM with peripheral neuropathy - Uses insulin pump at home - Continue Novolog sliding scale - Levemir started 4. CAD, history of CABG and stents - Had stent placed 1 month ago - Continue aspirin, Coreg, Crestor, Brilinta 5. DVT prophylaxis - On heparin subq
[2018-06-18] MEDS: VANCOMYCIN 1 GM PREMIX - 1 GM/200 ML BAG IVPB SCH ×2 (12:03→21:50)
--- NOTE | 2018-06-18 16:32 | PN ---
Physical Exam: SUBJECTIVE: Patient seen and examined at bedside this morning. No acute events overnight. Patient is feeling well this morning. Denies any pain on the affected area. OBJECTIVE: Vital Signs Temperature 98.5 F 06/18/18 14: Pulse Rate 61 06/18/18 14:19 Respiratory Rate 16 06/18/18 14: Blood Pressure 112/54 L 06/18/18 14:19 O2 Sat by Pulse Oximetry (%) 98 06/17/18 21:00 GENERAL: The patient is awake, alert, and fully oriented, in no acute distress. HEAD: Normal with no signs of trauma. EYES: PERRLA, EOMI, sclera anicteric, conjunctiva clear. ENT: oropharynx clear without exudates, moist mucous membranes. NECK: Trachea midline, full range of motion, supple. LUNGS: Breath sounds equal, clear to auscultation bilaterally. HEART: Regular rate and rhythm, S1, S2 without murmur, rub or gallop. ABDOMEN: Soft, nontender, nondistended, normoactive bowel sounds. EXTREMITIES: RLE: 2+ pulses, warm, well-perfused, no edema. LLE: dressing clean dry intact. NEUROLOGICAL: Cranial nerves II through XII grossly intact. Normal speech, gait not observed. PSYCH: Normal mood, normal affect. SKIN: Warm, dry, normal turgor, no rashes or lesions noted Laboratory Results - last 24 hr 06/17/18 06/17/18 06/18/18 17:24 21:20 05:30 WBC 9.3 RBC 3.86 L Hgb 11.3 L Hct 33.3 L MCV 86.1 MCH 29.2 MCHC 33.9 RDW 14.0 Plt Count 308 MPV 7.8 Absolute Neuts (auto) 6.9 Neutrophils % 73.8 Lymphocytes % 15.3 Monocytes % 8.0 Eosinophils % 2.3 Basophils % 0.6 Nucleated RBC % 0 Sodium Potassium Chloride Carbon Dioxide Anion Gap BUN Creatinine Creat Clearance w eGFR POC Glucometer 164 215 Random Glucose Calcium Phosphorus Magnesium 06/18/18 06/18/18 06/18/18 05:30 06:32 12:28 WBC RBC Hgb Hct MCV MCH MCHC RDW Plt Count MPV Absolute Neuts (auto) Neutrophils % Lymphocytes % Monocytes % Eosinophils % Basophils % Nucleated RBC % Sodium 133 L Potassium 4.3 Chloride 100 Carbon Dioxide 26 Anion Gap 7 L BUN 14 Creatinine 1.2 Creat Clearance w eGFR 61.55 POC Glucometer 194 241 Random Glucose 216 H Calcium 8.8 Phosphorus 3.2 Magnesium 2.3 Active Medications Generic Name Dose Route Start Last Admin Trade Name Freq PRN Reason Stop Dose Admin Aspirin 81 mg 06/13/18 10:00 06/18/18 10:59 Asa - PO 81 mg DAILY BACILIO Administration Carvedilol 6.25 mg 06/13/18 22:00 06/18/18 11:00 Coreg - PO 6.25 mg BID BACILIO Administration Duloxetine HCl 60 mg 06/13/18 10:00 06/18/18 10:59 Cymbalta - PO 60 mg DAILY BACILIO Administration Heparin Sodium (Porcine) 5,000 unit 06/13/18 14:00 06/16/18 21:31 Heparin - SQ 5,000 unit TID BACILIO Administration Piperacillin Sod/Tazobactam 50 mls @ 100 mls/hr 06/13/18 18:00 06/18/18 11:51 Sod 3.375 gm/ Dextrose IVPB 100 mls/hr Q8H-IV BACILIO Administration Protocol Lactated Ringer's 1,000 mls @ 75 mls/hr 06/17/18 14:45 06/18/18 06:36 Lactated Ringers Solution IV 75 mls/hr ASDIR BACILIO Administration Vancomycin HCl 1 gm in 200 mls @ 200 mls/hr 06/17/18 22:00 06/18/18 12:03 Vancomycin 1 Gm Premix - IVPB 200 mls/hr BID BACILIO Administration Protocol Insulin Aspart 1 vial 06/13/18 11:00 06/18/18 13:00 Novolog Vial Sliding Scale - SQ 4 units ACHS BACILIO Administration Protocol Insulin Detemir 10 units 06/15/18 07:00 06/18/18 06:33 Levemir Vial SQ 10 units AM BACILIO Administration Oxycodone HCl 5 mg 06/17/18 18:24 06/17/18 21:26 Roxicodone - PO 5 mg Q4H PRN Administration PAIN LEVEL 1-5 Pantoprazole Sodium 40 mg 06/13/18 10:00 06/18/18 11:00 Protonix - PO 40 mg DAILY BACILIO Administration Rosuvastatin Calcium 20 mg 06/12/18 22:00 06/17/18 21:23 Crestor - PO 20 mg HS BACILIO Administration Ticagrelor 90 mg 06/13/18 10:00 06/18/18 10:59 Brilinta - PO 90 mg BID BACILIO Administration -Left foot xray: Again noted is evidence of amputation of the great toe with calcification seen by the distal end of the first metatarsal and arthritic changes with questionable osteomyelitis involving the second toe PIP joint. The third toe appears swollen but there is no sign of gross bone destruction. The fourth and fifth toes appear partially flexed. -MRI: Extensive cellulitis of the foot. No osteomyelitis. No soft tissue abscess. There is enhancement of the inflamed soft tissues with contrast. -Arterial US of LLE: decreased blood flow along the left leg ASSESSMENT/PLAN: Patient is a 62 year old male with past medical history of CAD s/p CABG (3 stents), IDDM, Diabetic Neuropathy, osteomyelitis (MRSA positive), and HTN presented from wound care clinic due to left 3rd toe gangrene that was noted about 10 days. #Left 3rd toe gangrene with cellulitis -POD 1: left third digit amputation -MRSA nares screen negative. Contact precautions discontinued. -Vascular (Dr. Birmingham) consulted. -Podiatry (Dr. Floyd) consulted. Recommendations appreciated. -Oxycodone 5m q4 PRN for pain -Redress with wet to dry DSD -WBAT to the left heel. Surgical shoe as needed -ID (Dr. Shaffer) consulted. Recommendations appreciated. -Vancomycin 1g increased to BID -Will repeat vanc trough level tomorrow before the am dose. -Continue Vanc/Zosyn (day 7) -Blood culture no growth x72hrs -Bone/wound culture growing staph and another pending organism -Awaiting sensitivities. #IDDM -Insulin Levemir 10units HS -Insulin sliding scale -BGM ACHS #HERMINIO: improved -Will hold Losartan -Avoid nephrotoxic agents #HTN -Coreg 6.25mg BID #CAD -Continue ASA 81mg -Crestor 20mg PO HS -On Ticagrelor for recent stent placement -Cardiology (Dr. Woodard) consulted. Recommendations appreciated. -Would continue Brillinta and aspirin as well as Coreg given stent placed <1 month ago #FEN -Not on any standing fluids -Electrolytes wnl, routine bmp monitoring -Diabetic/sodium restricted diet #Prophylaxis -Heparin 5000units sq tid #Disposition -full code Visit type - Emergency Visit Emergency Visit: Yes ED Registration Date: 06/12/18 Care time: The patient presented to the Emergency Department on the above date and was hospitalized for further evaluation of their emergent condition. - New Patient This patient is new to me today: No - Critical Care Critical Care patient: No
[2018-06-18] MEDS ORDERED: PT OWN MED DRAWER 7, Y5N ONE (21:43)
[2018-06-18] MEDS: ROSUVASTATIN CA 20 MG TABLET (FP) PO SCH (21:49)
[2018-06-19] MEDS ORDERED: PIPERACILLIN/TAZOBACTAM 3.375 GM VIAL IVPB ONE ×3 (02:03→17:30)
[2018-06-19] MEDS ORDERED: DEXTROSE 5%-WATER - 50 ML IVPB ONE ×3 (02:03→17:30)
[2018-06-19] MEDS: PIPERACILLIN/TAZOB 3.375 GM 3.375 GM in DEXTROSE 5%-WATER - 50 ML IVPB SCH ×3 (02:50→19:18)
[2018-06-19] MEDS: INSULIN (LEVEMIR) 100 UNITS/ML UNITS SQ SCH (06:02)
[2018-06-19] MEDS: INSULIN SLIDING SCALE (NOVOLOG) 1 VIAL SQ SCH ×4 (06:02→23:48)
[2018-06-19] MEDS: HEPARIN NA (PORCINE) 5,000 UNITS/ML 1ML VIAL SQ SCH ×2 (06:02→23:48)
[2018-06-19] MEDS ORDERED: PT OWN MED DRAWER 7, Y5N ONE ×4 (08:02→12:58)
[2018-06-19] MEDS: DULoxetine HCL 30 MG CAPSULE.DR (FP) PO SCH (09:40)
[2018-06-19] MEDS: VANCOMYCIN 1 GM PREMIX - 1 GM/200 ML BAG IVPB SCH (09:40)
[2018-06-19] MEDS: CARVEDILOL 6.25 MG TABLET (FP) PO SCH ×2 (09:40→23:48)
[2018-06-19] MEDS: ASPIRIN 81 MG CHEWABLE TABLETS PO SCH (09:40)
[2018-06-19] MEDS: TICAGRELOR 90 MG TABLET PO SCH ×2 (09:40→23:51)
[2018-06-19] MEDS: PANTOPRAZOLE 40 MG TABLET (FP) PO SCH (09:43)
--- NOTE | 2018-06-19 11:00 | PN ---
Progress Note (short form) - Note Progress Note: s: no chest pain, palps, dizziness Current Medications Generic Name Dose Route Start Last Admin Trade Name Freq PRN Reason Stop Dose Admin Aspirin 81 mg 06/13/18 10:00 06/19/18 09:40 Asa - PO 81 mg DAILY BACILIO Administration Carvedilol 6.25 mg 06/13/18 22:00 06/19/18 09:40 Coreg - PO 6.25 mg BID BACILIO Administration Duloxetine HCl 60 mg 06/13/18 10:00 06/19/18 09:40 Cymbalta - PO 60 mg DAILY BACILIO Administration Heparin Sodium (Porcine) 5,000 unit 06/13/18 14:00 06/19/18 06:02 Heparin - SQ 5,000 unit TID BACILIO Administration Piperacillin Sod/Tazobactam 50 mls @ 100 mls/hr 06/13/18 18:00 06/19/18 09:40 Sod 3.375 gm/ Dextrose IVPB 100 mls/hr Q8H-IV BACILIO Administration Protocol Lactated Ringer's 1,000 mls @ 75 mls/hr 06/17/18 14:45 06/18/18 17:46 Lactated Ringers Solution IV 75 mls/hr ASDIR BACILIO Administration Vancomycin HCl 1 gm in 200 mls @ 200 mls/hr 06/17/18 22:00 06/19/18 09:40 Vancomycin 1 Gm Premix - IVPB 200 mls/hr BID BACILIO Administration Protocol Insulin Aspart 1 vial 06/13/18 11:00 06/19/18 06:02 Novolog Vial Sliding Scale - SQ 2 units ACHS BACILIO Administration Protocol Insulin Detemir 10 units 06/15/18 07:00 06/19/18 06:02 Levemir Vial SQ 10 units AM BACILIO Administration Oxycodone HCl 5 mg 06/17/18 18:24 06/17/18 21:26 Roxicodone - PO 5 mg Q4H PRN Administration PAIN LEVEL 1-5 Pantoprazole Sodium 40 mg 06/13/18 10:00 06/19/18 09:43 Protonix - PO 40 mg DAILY BACILIO Administration Rosuvastatin Calcium 20 mg 06/12/18 22:00 06/18/18 21:49 Crestor - PO 20 mg HS BACILIO Administration Ticagrelor 90 mg 06/13/18 10:00 06/19/18 09:40 Brilinta - PO 90 mg BID BACILIO Administration Vital Signs: Vital Signs Period Temp Pulse Resp BP Sys/Pimentel Pulse Ox Last 24 Hr 98.0 F-98.5 F 58-70 16-18 105-115/54-60 97-100 Constitutional: Yes: Well Nourished, No Distress, Calm Eyes: Yes: Conjunctiva Clear Neck: Yes: Supple, Trachea Midline Respiratory: Yes: Regular, CTA Bilaterally Gastrointestinal: Yes: Normal Bowel Sounds, Soft Cardiovascular: Yes: Regular Rate and Rhythm JVD: No Heart Sounds: Yes: S1, S2 Murmur: No: Systolic Murmur Musculoskeletal: No: Back Pain Extremities: Yes: Other (bandages R foot) Edema: No Peripheral Pulses: 1+ Left Doralis Pedis Integumentary: No: Jaundice Neurological: Yes: Alert, Oriented Psychiatric: No: Agitated CBC, BMP 06/18/18 05:30 06/18/18 05:30 Assessment/Plan cardiac cath [facility] [place]/15/18, 70-80 % SVG to RPDA 70-80 % RPDA after anastomosis site Occluded mLAD Patent stent In Proximal Cx with mild diffuse disease distally Patent OCONNELL-LAD filling retrograde mLAD and Large diagonal Successful SVG to RCA PCI EKG: sinus, IRBBB, no ischemic changes 62M h/o CAD (with prior IN s/p CABG in 2002, prior 2016 cath with multiple stents, most recent stent 05/15/18 SVG to RCA), HTN, NIDDM p/w L 3rd toe gangrene Gangrene, preop consult - s/p toe amputation, manage per podiatry, ID CAD s/p CABG, recent stent - stent placement after viability study - asymptomatic - EKG stable - continue aspirin, statin, brillinta, bb HTN - stable on home meds, continue DM - manage per primary cardiac moraes stable
[2018-06-19 11:39] LABS: HEMATOCRIT 33.6 % (35.4-49); HEMOGLOBIN 11.3 GM/dL (11.7-16.9); MCH 29.2 pg (25.7-33.7); MCHC 33.6 g/dl (32.0-35.9); MEAN CELL VOLUME 86.8 fl (80-96); MEAN PLT VOLUME 7.8 fl (7.5-11.1); PLATELET COUNT 339 K/MM3 (134-434); RBC 3.88 M/mm3 (4.00-5.60); WHITE BLOOD COUNT 7.6 K/mm3 (4.0-10.0)
[2018-06-19 12:08] LABS: ANION GAP 6 MMOL/L (8-16); BLOOD UREA NITROGEN 13 mg/dL (7-18); CHLORIDE 99 mmol/L (98-107); CO2 30 mmol/L (21-32); CREATININE 1.3 mg/dL (0.55-1.3); GLUCOSE,RANDOM 278 mg/dL (74-106); MAGNESIUM 2.4 mg/dL (1.8-2.4); PHOSPHOROUS 3.2 mg/dL (2.5-4.9); POTASSIUM 4.3 mmol/L (3.5-5.1); SODIUM 134 mmol/L (136-145)
--- NOTE | 2018-06-19 12:43 | PN ---
Progress Note (short form) - Note Progress Note: Podiatry F/U: Seen/evaluated at bedside NAD. Anxious to go home. Denies F/V/N/C/SOB/CP. Afebrile. S?p L 3rd digit amputation. BRITANY: L foot: pedal pulses palpable, TG wnl. Sutures well coapted, no dehiscence noted, small ulceration at the packing site. There is mild ecchymosis at the dorsal aspect of the incision. There is no purulence, no fluctuance, no streaking cellulitis, no signs of active infection. No active bleeding. OR cx: strep B, staph OR Path: pending Imp: 62 year old diabetic male s/p L 3rd digit amputation 1. IV abx per ID 2. DSD L foot 3. Partial weightbearing L foot with surgical shoe 4. F/u OR path 5. Will follow Celso Floyd DPM
--- NOTE | 2018-06-19 13:09 | PN ---
Physical Exam: SUBJECTIVE: Patient seen and examined at bedside this morning. No acute events overnight. Patient sitting comfortably in bed and wants to go home. Patient has no complaints. OBJECTIVE: Vital Signs Temperature 98.5 F 06/19/18 11:33 Pulse Rate 57 L 06/19/18 11:33 Respiratory Rate 18 06/19/18 05:28 Blood Pressure 141/71 06/19/18 11:33 O2 Sat by Pulse Oximetry (%) 97 06/19/18 09:00 GENERAL: The patient is awake, alert, and fully oriented, in no acute distress. HEAD: Normal with no signs of trauma. EYES: PERRLA, EOMI, sclera anicteric, conjunctiva clear. ENT: oropharynx clear without exudates, moist mucous membranes. NECK: Trachea midline, full range of motion, supple. LUNGS: Breath sounds equal, clear to auscultation bilaterally. HEART: Regular rate and rhythm, S1, S2 without murmur, rub or gallop. ABDOMEN: Soft, nontender, nondistended, normoactive bowel sounds. EXTREMITIES: RLE: 2+ pulses, warm, well-perfused, no edema. LLE: dressing clean dry intact. NEUROLOGICAL: Cranial nerves II through XII grossly intact. Normal speech, gait not observed. PSYCH: Normal mood, normal affect. SKIN: Warm, dry, normal turgor, no rashes or lesions noted Laboratory Results - last 24 hr 06/18/18 06/18/18 06/19/18 18:17 21:48 05:57 WBC RBC Hgb Hct MCV MCH MCHC RDW Plt Count MPV Sodium Potassium Chloride Carbon Dioxide Anion Gap BUN Creatinine Creat Clearance w eGFR POC Glucometer 273 283 196 Random Glucose Calcium Phosphorus Magnesium Vancomycin Pre-Dose 06/19/18 06/19/18 06/19/18 11:20 11:20 11:20 WBC 7.6 RBC 3.88 L Hgb 11.3 L Hct 33.6 L MCV 86.8 MCH 29.2 MCHC 33.6 RDW 14.0 Plt Count 339 MPV 7.8 Sodium 134 L Potassium 4.3 Chloride 99 Carbon Dioxide 30 Anion Gap 6 L BUN 13 Creatinine 1.3 Creat Clearance w eGFR 56.12 POC Glucometer Random Glucose 278 H Calcium 9.0 Phosphorus 3.2 Magnesium 2.4 Vancomycin Pre-Dose 34.2 H* 06/19/18 11:31 WBC RBC Hgb Hct MCV MCH MCHC RDW Plt Count MPV Sodium Potassium Chloride Carbon Dioxide Anion Gap BUN Creatinine Creat Clearance w eGFR POC Glucometer 277 Random Glucose Calcium Phosphorus Magnesium Vancomycin Pre-Dose Active Medications Generic Name Dose Route Start Last Admin Trade Name Freq PRN Reason Stop Dose Admin Aspirin 81 mg 06/13/18 10:00 06/19/18 09:40 Asa - PO 81 mg DAILY BACILIO Administration Carvedilol 6.25 mg 06/13/18 22:00 06/19/18 09:40 Coreg - PO 6.25 mg BID BACILIO Administration Duloxetine HCl 60 mg 06/13/18 10:00 06/19/18 09:40 Cymbalta - PO 60 mg DAILY BACILIO Administration Heparin Sodium (Porcine) 5,000 unit 06/13/18 14:00 06/19/18 06:02 Heparin - SQ 5,000 unit TID BACILIO Administration Piperacillin Sod/Tazobactam 50 mls @ 100 mls/hr 06/13/18 18:00 06/19/18 09:40 Sod 3.375 gm/ Dextrose IVPB 100 mls/hr Q8H-IV BACILIO Administration Protocol Lactated Ringer's 1,000 mls @ 75 mls/hr 06/17/18 14:45 06/18/18 17:46 Lactated Ringers Solution IV 75 mls/hr ASDIR BACILIO Administration Vancomycin HCl 1 gm in 200 mls @ 200 mls/hr 06/17/18 22:00 06/19/18 09:40 Vancomycin 1 Gm Premix - IVPB 200 mls/hr BID BACILIO Administration Protocol Insulin Aspart 1 vial 06/13/18 11:00 06/19/18 11:47 Novolog Vial Sliding Scale - SQ 6 units ACHS BACILIO Administration Protocol Insulin Detemir 10 units 06/15/18 07:00 06/19/18 06:02 Levemir Vial SQ 10 units AM BACILIO Administration Oxycodone HCl 5 mg 06/17/18 18:24 06/17/18 21:26 Roxicodone - PO 5 mg Q4H PRN Administration PAIN LEVEL 1-5 Pantoprazole Sodium 40 mg 06/13/18 10:00 06/19/18 09:43 Protonix - PO 40 mg DAILY BACILIO Administration Rosuvastatin Calcium 20 mg 06/12/18 22:00 06/18/18 21:49 Crestor - PO 20 mg HS BACILIO Administration Ticagrelor 90 mg 06/13/18 10:00 06/19/18 09:40 Brilinta - PO 90 mg BID BACILIO Administration -Left foot xray: Again noted is evidence of amputation of the great toe with calcification seen by the distal end of the first metatarsal and arthritic changes with questionable osteomyelitis involving the second toe PIP joint. The third toe appears swollen but there is no sign of gross bone destruction. The fourth and fifth toes appear partially flexed. -MRI: Extensive cellulitis of the foot. No osteomyelitis. No soft tissue abscess. There is enhancement of the inflamed soft tissues with contrast. -Arterial US of LLE: decreased blood flow along the left leg ASSESSMENT/PLAN: Patient is a 62 year old male with past medical history of CAD s/p CABG (3 stents), IDDM, Diabetic Neuropathy, osteomyelitis (MRSA positive), and HTN presented from wound care clinic due to left 3rd toe gangrene that was noted about 10 days. #Left 3rd toe gangrene with cellulitis -POD 2: left third digit amputation -Vascular (Dr. Birmingham) consulted. -Podiatry (Dr. Floyd) consulted. Recommendations appreciated. -Oxycodone 5m q4 PRN for pain -Redress with wet to dry DSD -WBAT to the left heel. Surgical shoe as needed -ID (Dr. Shaffer) consulted. Recommendations appreciated. -Vancomycin 1g increased to BID -Vanc trough 34 today -will hold next dose -Continue Vanc/Zosyn (day 7) -Blood culture no growth x72hrs -Bone/wound culture growing staph and strep -Awaiting pathology report #IDDM -Insulin Levemir 10units HS -Insulin sliding scale -BGM ACHS #HERMINIO: improved -Will hold Losartan -Avoid nephrotoxic agents #HTN -Coreg 6.25mg BID #CAD -Continue ASA 81mg -Crestor 20mg PO HS -On Ticagrelor for recent stent placement -Cardiology (Dr. Woodard) consulted. Recommendations appreciated. -Would continue Brillinta and aspirin as well as Coreg given stent placed <1 month ago #FEN -Not on any standing fluids -Electrolytes wnl, routine bmp monitoring -Diabetic/sodium restricted diet #Prophylaxis -Heparin 5000units sq tid #Disposition -full code Visit type - Emergency Visit Emergency Visit: Yes ED Registration Date: 06/12/18 Care time: The patient presented to the Emergency Department on the above date and was hospitalized for further evaluation of their emergent condition. - New Patient This patient is new to me today: No - Critical Care Critical Care patient: No
[2018-06-19] MEDS ORDERED: oxyCODONE HCL 5 MG TABLET PO PRN ×2 (13:23→14:08)
[2018-06-19] MEDS ORDERED: HEPARIN NA (PORCINE) 5,000 UNITS/ML 1ML VIAL SQ SCH (14:00)
--- NOTE | 2018-06-19 15:39 | PN ---
Teaching Attending Note Name of Resident: Reny Krueger ATTENDING PHYSICIAN STATEMENT I saw and evaluated the patient. I reviewed the resident's note and discussed the case with the resident. I agree with the resident's findings and plan as documented. SUBJECTIVE: Patient has no complaints. OBJECTIVE: Vital Signs Period Temp Pulse Resp BP Sys/Pimentel Pulse Ox Last 24 Hr 97.8 F-98.5 F 57-70 18-20 105-141/58-71 97-100 HEART: S1S2, RRR LUNGS: Clear ABDOMEN: Obese, soft, non-tender, non-distended, normal BS EXTREMITIES: No edema, left foot wrapped Laboratory Results - last 24 hr 06/18/18 06/18/18 06/19/18 18:17 21:48 05:57 WBC RBC Hgb Hct MCV MCH MCHC RDW Plt Count MPV Sodium Potassium Chloride Carbon Dioxide Anion Gap BUN Creatinine Creat Clearance w eGFR POC Glucometer 273 283 196 Random Glucose Calcium Phosphorus Magnesium Vancomycin Pre-Dose 06/19/18 06/19/18 06/19/18 11:20 11:20 11:20 WBC 7.6 RBC 3.88 L Hgb 11.3 L Hct 33.6 L MCV 86.8 MCH 29.2 MCHC 33.6 RDW 14.0 Plt Count 339 MPV 7.8 Sodium 134 L Potassium 4.3 Chloride 99 Carbon Dioxide 30 Anion Gap 6 L BUN 13 Creatinine 1.3 Creat Clearance w eGFR 56.12 POC Glucometer Random Glucose 278 H Calcium 9.0 Phosphorus 3.2 Magnesium 2.4 Vancomycin Pre-Dose 34.2 H* 06/19/18 11:31 WBC RBC Hgb Hct MCV MCH MCHC RDW Plt Count MPV Sodium Potassium Chloride Carbon Dioxide Anion Gap BUN Creatinine Creat Clearance w eGFR POC Glucometer 277 Random Glucose Calcium Phosphorus Magnesium Vancomycin Pre-Dose Current Medications Generic Name Dose Route Start Last Admin Trade Name Freq PRN Reason Stop Dose Admin Aspirin 81 mg 06/20/18 10:00 Asa - PO DAILY BACILIO Carvedilol 6.25 mg 06/19/18 22:00 Coreg - PO BID BACILIO Duloxetine HCl 60 mg 06/20/18 10:00 Cymbalta - PO DAILY BACILIO Heparin Sodium (Porcine) 5,000 unit 06/19/18 22:00 Heparin - SQ TID BACILIO Vancomycin HCl 1 gm in 200 mls @ 200 mls/hr 06/19/18 22:00 Vancomycin 1 Gm Premix - IVPB BID [facility] Protocol Piperacillin Sod/Tazobactam 50 mls @ 100 mls/hr 06/19/18 18:00 Sod 3.375 gm/ Dextrose IVPB Q8H-IV BACILIO Protocol Insulin Aspart 1 vial 06/19/18 16:30 Novolog Vial Sliding Scale - SQ ACHS [facility] Protocol Insulin Detemir 10 units 06/20/18 07:00 Levemir Vial SQ AM BACILIO Oxycodone HCl 5 mg 06/19/18 14:08 Roxicodone - PO Q4H PRN PAIN LEVEL 1-5 Pantoprazole Sodium 40 mg 06/20/18 10:00 Protonix - PO DAILY BACILIO Rosuvastatin Calcium 20 mg 06/19/18 22:00 Crestor - PO HS BACILIO Ticagrelor 90 mg 06/19/18 22:00 Brilinta - PO BID [facility] ASSESSMENT AND PLAN: This is a 62 year old man with a history of HTN, CAD, CABG and stents, type 2 DM , diabetic neuropathy, osteomyelitis, MRSA who was advised by his lead ramp agent to got to the ED because of an ulcer of his left 3rd toe. 1. Diabetic ulcer with cellulitis and osteomyelitis of left 3rd toe - Cellulitis resolved - MRI shows no abscess or osteomyelitis, however on exam bone is exposed - s/p left third toe amputation 06/17 - Wound culture growing MSSA, coag neg Staph, group B Strep - Bone culture growing Staph epidermidis, coag pos Staph, group B Strep - Pathology pending - Continue Zosyn, Vancomycin 2. HTN - Continue Coreg 3. Type 2 DM with peripheral neuropathy - Uses insulin pump at home - Continue Levemir, Novolog sliding scale 4. CAD, history of CABG and stents - Had stent placed 1 month ago - Continue aspirin, Coreg, Crestor, Brilinta 5. DVT prophylaxis - On heparin subq
[2018-06-19] MEDS ORDERED: INSULIN SLIDING SCALE (NOVOLOG) 1 VIAL SQ SCH (16:30)
--- NOTE | 2018-06-19 16:41 | PN ---
Progress Note, Physician History of Present Illness: POD#2 AMPUTATION OF TOE NO C/O PAIN NO F/C WOUND C/S NOTED PATH REPORT PENDING - Current Medication List Current Medications: Active Medications Aspirin (Asa -) 81 mg PO DAILY [facility] Carvedilol (Coreg -) 6.25 mg PO BID [facility] Duloxetine HCl (Cymbalta -) 60 mg PO DAILY [facility] Heparin Sodium (Porcine) (Heparin -) 5,000 unit SQ TID [facility] Piperacillin Sod/Tazobactam (Sod 3.375 gm/ Dextrose) 50 mls @ 100 mls/hr IVPB Q8H-IV [facility]; Protocol Insulin Aspart (Novolog Vial Sliding Scale -) 1 vial SQ ACHS [facility]; Protocol Insulin Detemir (Levemir Vial) 10 units SQ AM [facility] Oxycodone HCl (Roxicodone -) 5 mg PO Q4H PRN PRN Reason: PAIN LEVEL 1-5 Pantoprazole Sodium (Protonix -) 40 mg PO DAILY [facility] Rosuvastatin Calcium (Crestor -) 20 mg PO HS [facility] Ticagrelor (Brilinta -) 90 mg PO BID [facility] - Objective Vital Signs: Vital Signs Temperature 97.8 F 06/19/18 13:00 Pulse Rate 58 L 06/19/18 13:00 Respiratory Rate 20 06/19/18 13:00 Blood Pressure 123/58 L 06/19/18 13:00 O2 Sat by Pulse Oximetry (%) 97 06/19/18 09:00 Constitutional: Yes: Obese Cardiovascular: Yes: Regular Rate and Rhythm, S1, S2 Respiratory: Yes: CTA Bilaterally Gastrointestinal: Yes: Normal Bowel Sounds, Soft Extremities: Yes: Other (TOE AMPUTATION SITE WITH SUTURES IN PLACE NO DRAINAGE) Labs: CBC, BMP 06/19/18 11:20 06/19/18 11:20 INR, PTT INR 1.23 (0.83-1.09) H 06/13/18 05:30 Assessment/Plan POD # 2 AMPUTATION GANGRENOUS TOE CELLULITIS L LE IMPROVED AZOTEMIA DIABETES MELLITUS HX MRSA AWAIT PATH REPORT IF MARGINS CLEAR SUBSTITUTE PO ANTIBIOTICS
[2018-06-19] MEDS ORDERED: PIPERACILLIN/TAZOB 3.375 GM 3.375 GM in DEXTROSE 5%-WATER - 50 ML IVPB SCH (18:00)
[2018-06-19] MEDS ORDERED: CARVEDILOL 6.25 MG TABLET (FP) PO SCH (22:00)
[2018-06-19] MEDS ORDERED: TICAGRELOR 90 MG TABLET PO SCH (22:00)
[2018-06-19] MEDS ORDERED: ROSUVASTATIN CA 20 MG TABLET (FP) PO SCH ×2 (22:00)
[2018-06-19] MEDS ORDERED: VANCOMYCIN 1 GM PREMIX - 1 GM/200 ML BAG IVPB SCH ×2 (22:00)
[2018-06-20] MEDS ORDERED: PIPERACILLIN/TAZOBACTAM 3.375 GM VIAL IVPB ONE ×2 (01:27→11:36)
[2018-06-20] MEDS ORDERED: DEXTROSE 5%-WATER - 50 ML IVPB ONE ×2 (01:27→11:37)
[2018-06-20] MEDS: PIPERACILLIN/TAZOB 3.375 GM 3.375 GM in DEXTROSE 5%-WATER - 50 ML IVPB SCH ×2 (02:43→11:41)
[2018-06-20] MEDS: INSULIN SLIDING SCALE (NOVOLOG) 1 VIAL SQ SCH ×2 (06:54→12:08)
[2018-06-20] MEDS: HEPARIN NA (PORCINE) 5,000 UNITS/ML 1ML VIAL SQ SCH (06:54)
[2018-06-20] MEDS ORDERED: INSULIN (LEVEMIR) 100 UNITS/ML UNITS SQ SCH ×2 (07:00)
--- NOTE | 2018-06-20 08:46 | PN ---
Teaching Attending Note Name of Resident: Reny Krueger ATTENDING PHYSICIAN STATEMENT I saw and evaluated the patient. I reviewed the resident's note and discussed the case with the resident. I agree with the resident's findings and plan as documented. 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 Active Medications Aspirin (Asa -) 81 mg PO DAILY [facility] Carvedilol (Coreg -) 6.25 mg PO BID [facility] Last Admin: 06/19/18 23:48 Dose: 6.25 mg Duloxetine HCl (Cymbalta -) 60 mg PO DAILY [facility] Heparin Sodium (Porcine) (Heparin -) 5,000 unit SQ TID [facility] Last Admin: 06/20/18 06:54 Dose: 5,000 unit Piperacillin Sod/Tazobactam (Sod 3.375 gm/ Dextrose) 50 mls @ 100 mls/hr IVPB Q8H-IV [facility]; Protocol Last Admin: 06/20/18 02:43 Dose: 100 mls/hr Insulin Aspart (Novolog Vial Sliding Scale -) 1 vial SQ ACHS [facility]; Protocol Last Admin: 06/20/18 06:54 Dose: 4 units Insulin Detemir (Levemir Vial) 10 units SQ AM [facility] Last Admin: 06/20/18 06:54 Dose: 10 units Oxycodone HCl (Roxicodone -) 5 mg PO Q4H PRN PRN Reason: PAIN LEVEL 1-5 Pantoprazole Sodium (Protonix -) 40 mg PO DAILY [facility] Rosuvastatin Calcium (Crestor -) 20 mg PO HS [facility] Last Admin: 06/19/18 23:50 Dose: 20 mg Ticagrelor (Brilinta -) 90 mg PO BID [facility] Last Admin: 06/19/18 23:51 Dose: 90 mg CBC, BMP 06/19/18 11:20 06/19/18 11:20 Microbiology 06/17/18 14:20 Gram Stain - Final Bone Tissue Culture - Final NO ANAEROBES WERE ISOLATED 06/17/18 14:17 Gram Stain - Final Wound Wound Culture - Final Staphylococcus Aureus Staphylococcus Coagulase Neg Strep Agalactiae Group B ASSESSMENT AND PLAN:62 year old man with a history of HTN, CAD, CABG and stents , type 2 DM, diabetic neuropathy, osteomyelitis, siobhan Problem List - Problems (1) Diabetic foot ulcer Assessment/Plan: s/p ambutation of left 3 digit culture grew staph epi, strept and Staph aureus no fever normal TWBC discussed with Id recomminded 7 days Po augmentin can be Dc Home, Code(s): E11.621 - TYPE 2 DIABETES MELLITUS WITH FOOT ULCER; L97.509 - NON- PRESSURE CHRONIC ULCER OTH PRT UNSP FOOT W UNSP SEVERITY (2) Diabetes Assessment/Plan: FS are uncontrolled will resume metformin on DC as renal functions improved, patient is on insulin pump and trulacity at home Code(s): E11.9 - TYPE 2 DIABETES MELLITUS WITHOUT COMPLICATIONS (3) CAD (coronary artery disease) Assessment/Plan: S?p stenting cont home meds at present asymptomatic Code(s): I25.10 - ATHSCL HEART DISEASE OF [place] CORONARY ARTERY W/O ANG PCTRS (4) Osteomyelitis Assessment/Plan: S/P amputation of toe on Po abx Code(s): M86.9 - OSTEOMYELITIS, UNSPECIFIED (5) Stage 3a chronic kidney disease Assessment/Plan: stable now Code(s): N18.3 - CHRONIC KIDNEY DISEASE, STAGE 3 (MODERATE)
[2018-06-20 09:48] VITALS: PULSE 60
[2018-06-20] MEDS ORDERED: ASPIRIN 81 MG CHEWABLE TABLETS PO SCH ×2 (10:00)
[2018-06-20] MEDS ORDERED: PANTOPRAZOLE 40 MG TABLET (FP) PO SCH ×2 (10:00)
[2018-06-20] MEDS ORDERED: DULoxetine HCL 30 MG CAPSULE.DR (FP) PO SCH ×2 (10:00)
[2018-06-20] MEDS ORDERED: PT OWN MED DRAWER 7, Y5N ONE (11:36)
[2018-06-20] MEDS: TICAGRELOR 90 MG TABLET PO SCH (11:45)
[2018-06-20] MEDS: CARVEDILOL 6.25 MG TABLET (FP) PO SCH (11:45)
--- NOTE | 2018-06-20 13:30 | PATH ---
Surgical Pathology Report Patient Name: GEORGES CHARLES [facility]. Rec. #: [id number] /Age/Gender: 1955 (Age: 62) / M Account: [id number] Location: [address] [place] [address]/[facility] Taken: 06/17/2018 Received: 06/18/2018 Reported: 06/20/2018 Physicians: LARRY Powell M.D. Specimen(s) Received A: LEFT 3RD TOE B: PROXIMAL BONE LEFT 3RD TOE Clinical History Osteomyelitis, gangrenous left third toe, diabetic left foot ulcer Final Diagnosis A. LEFT THIRD TOE, AMPUTATION: GANGRENOUS NECROSIS WITH ASSOCIATED ACUTE OSTEOMYELITIS. BONE FROM MARGIN IS FREE OF OSTEOMYELITIS. SOFT TISSUE FROM MARGIN SHOWS AREAS OF GANGRENOUS NECROSIS AND ACUTE INFLAMMATION. B. BONE, PROXIMAL LEFT THIRD TOE, EXCISION: BONE WITH REACTIVE CHANGES. NO OSTEOMYELITIS IDENTIFIED. Electronically Signed Andrew Marvin M.D. Gross Description A. Received in formalin labeled "left third toe," is a 5.5 x 2.5 x 2.0 cm toe amputation specimen. The distal aspect of the toe displays a 2.5 x 2.0 cm black, gangrenous lesion extending to and involving the underlying bone. The lesion focally extends to the skin and soft tissue margin. [employer] sections are submitted in 3 cassettes as follows: 1-lesion with underlying bone, following decalcification; 2-bone margin, following decalcification; 3-skin and soft tissue margin. B. Received in formalin labeled "proximal bone left third toe," is a 1.6 x 1.2 x 0.5 cm castro, irregular portion of bone. The specimen is serially sectioned and entirely submitted in one cassette, following decalcification. /06/19/2018 saudi/06/19/2018
--- NOTE | 2018-06-20 14:42 | DS ---
Physical Exam: SUBJECTIVE: Patient seen and examined at bedside this morning. No acute events overnight. Patient has no complaints. OBJECTIVE: Vital Signs Temperature 98.4 F 06/20/18 09:00 Pulse Rate 60 06/20/18 09:00 Respiratory Rate 16 06/20/18 09:00 Blood Pressure 129/74 06/20/18 09:00 O2 Sat by Pulse Oximetry (%) 97 06/19/18 21:00 PHYSICAL EXAM GENERAL: The patient is awake, alert, and fully oriented, in no acute distress. HEAD: Normal with no signs of trauma. EYES: PERRLA, EOMI, sclera anicteric, conjunctiva clear. ENT: oropharynx clear without exudates, moist mucous membranes. NECK: Trachea midline, full range of motion, supple. LUNGS: Breath sounds equal, clear to auscultation bilaterally. HEART: Regular rate and rhythm, S1, S2 without murmur, rub or gallop. ABDOMEN: Soft, nontender, nondistended, normoactive bowel sounds. EXTREMITIES: RLE: 2+ pulses, warm, well-perfused, no edema. LLE: sutures intact , no drainage, no surrounding erythema, edema or tenderness. NEUROLOGICAL: Cranial nerves II through XII grossly intact. Normal speech, walks with a cane. PSYCH: Normal mood, normal affect. SKIN: Warm, dry, normal turgor, no rashes or lesions noted LABS Laboratory Results - last 24 hr 06/19/18 06/19/18 06/20/18 17:27 23:35 06:42 POC Glucometer 200 172 202 Vancomycin Pre-Dose 06/20/18 06/20/18 10:25 11:55 POC Glucometer 199 Vancomycin Pre-Dose 9.5 L Microbiology 06/17/18 14:20 Bone Gram Stain - Final 06/17/18 14:20 Bone Tissue Culture - Final Staphylococcus Epidermidis Staphylococcus Aureus Strep Agalactiae Group B 06/17/18 14:20 Bone Anaerobic Culture - Final NO ANAEROBES WERE ISOLATED 06/17/18 14:17 Wound Gram Stain - Final 06/17/18 14:17 Wound Wound Culture - Final Staphylococcus Aureus Staphylococcus Coagulase Neg Strep Agalactiae Group B -Left foot xray: Again noted is evidence of amputation of the great toe with calcification seen by the distal end of the first metatarsal and arthritic changes with questionable osteomyelitis involving the second toe PIP joint. The third toe appears swollen but there is no sign of gross bone destruction. The fourth and fifth toes appear partially flexed. -MRI: Extensive cellulitis of the foot. No osteomyelitis. No soft tissue abscess. There is enhancement of the inflamed soft tissues with contrast. -Arterial US of LLE: decreased blood flow along the left leg HOSPITAL COURSE: Date of Admission:06/12/18 Date of Discharge: 06/20/18 Patient is a 62 year old male with past medical history of CAD s/p CABG (3 stents), IDDM, Diabetic Neuropathy, osteomyelitis (MRSA positive), and HTN presented from wound care clinic due to left 3rd toe gangrene. ID, Podiatry and Vascular surgery consulted. Patient was started on IV Vanc and Zosyn. Patient underwent left third digit amputation with no post-op complications. Cultures were followed and pathology reported clean bone margins without osteomyelitis. Patient was discharged on Levaquin 500mg daily and instructed to follow up with PCP, vascular surgery and podiatry. Minutes to complete discharge: 38 Discharge Summary Reason For Visit: DIABETIC FOOT ULCER Current Active Problems Diabetic foot ulcer (Acute) Condition: Improved - Instructions Diet, Activity, Other Instructions: Your visit You were admitted in the hospital because your left third toe was infected. You were started on IV antibiotics. You underwent amputation of the toe under Dr. Floyd. Please follow up with Dr. Floyd at the wound care clinic. You were also noted to have decreased blood flow to your left leg that was found on ultrasound. IT is important the you follow up with Dr. Birmingham at the wound care clinic for further management. Medications Please take the following medications as prescribed. 1. Levofloxacin 500mg daily for 7 days. Continue your other home medications. Care -Keep the wound clean and dry at all times -Apply Bactroban cream on the incision area daily -Dressing with dry gauze. change daily -Partial weight bearing on the left heel with surgical shoe -Follow up at the wound care clinic. Follow up Please follow up with the foot doctor (Dr. Floyd) at the wound care clinic. Please call the office to schedule an appointment next Saturday, June 24. Please follow up with vascular surgery (Dr. Birmingham) at the wound care clinic. Please follow up with your primary care doctor within 1 week. Additional info Call 911 or go the ED if with any worsening fever, chills, headache, dizziness, chest pain, shortness of breath, abdominal pain, bloody stools or any new concerns noted. Referrals: Trev Floyd MD [Staff Physician] - 06/24/18 Lulu Woodard MD [Staff Physician] - Edmundo Birmingham DO [Staff Physician] - Disposition: HOME - Home Medications Comprehensive Discharge Medication List: Ambulatory Orders Atorvastatin Ca [Lipitor] 20 mg PO HS #0 tablet 05/07/13 Losartan Potassium [Cozaar -] 25 mg PO DAILY #0 tablet 05/07/13 Aspirin 1 tab PO DAILY 06/12/18 Carvedilol [Coreg -] 6.25 mg PO BID 06/12/18 Dulaglutide [Trulicity] 1 dose IM WEEKLY 06/12/18 Duloxetine HCl 60 mg PO DAILY 06/12/18 Insulin Pump [Insulin Pump - (Nf)] 100 unit IM DAILY 06/12/18 Pantoprazole Sodium [Protonix -] 40 mg PO DAILY 06/12/18 Rosuvastatin [Crestor -] 20 mg PO HS 06/12/18 Ticagrelor [Brilinta -] 90 mg PO BID 06/12/18 Metformin HCl [Metformin HCl ER] 500 mg PO BID 06/13/18 Amoxicillin/Potassium Clav [Augmentin 875-125 Tablet] 1 each PO BID #14 tablet 06/20/18 Insulin (Levemir) [Levemir Vial] 10 units SQ AM units 06/20/18 This patient is new to me today: No Emergency Visit: Yes ED Registration Date: 06/12/18 Care time: The patient presented to the Emergency Department on the above date and was hospitalized for further evaluation of their emergent condition. Critical Care patient: No - Discharge Referral Referred to [facility] Med [facility].: No
[2018-06-20 14:49] VITALS: BP 148/70; TEMP 97.6
--- NOTE | 2018-06-20 15:07 | PN ---
Progress Note, Physician History of Present Illness: POST OP AMPUTATION OF TOE NO C/O PAIN NO F/C WOUND C/S NOTED PATH REPORT SHOWS VIABLE BONE MARGINS - Current Medication List Current Medications: Active Medications Aspirin (Asa -) 81 mg PO DAILY [facility] Last Admin: 06/20/18 11:45 Dose: 81 mg Carvedilol (Coreg -) 6.25 mg PO BID [facility] Last Admin: 06/20/18 11:45 Dose: 6.25 mg Duloxetine HCl (Cymbalta -) 60 mg PO DAILY [facility] Last Admin: 06/20/18 11:45 Dose: 60 mg Heparin Sodium (Porcine) (Heparin -) 5,000 unit SQ TID [facility] Last Admin: 06/20/18 06:54 Dose: 5,000 unit Piperacillin Sod/Tazobactam (Sod 3.375 gm/ Dextrose) 50 mls @ 100 mls/hr IVPB Q8H-IV [facility]; Protocol Last Admin: 06/20/18 11:41 Dose: 100 mls/hr Insulin Aspart (Novolog Vial Sliding Scale -) 1 vial SQ ACHS [facility]; Protocol Last Admin: 06/20/18 12:08 Dose: 2 units Insulin Detemir (Levemir Vial) 10 units SQ AM [facility] Last Admin: 06/20/18 06:54 Dose: 10 units Oxycodone HCl (Roxicodone -) 5 mg PO Q4H PRN PRN Reason: PAIN LEVEL 1-5 Pantoprazole Sodium (Protonix -) 40 mg PO DAILY [facility] Last Admin: 06/20/18 11:45 Dose: 40 mg Rosuvastatin Calcium (Crestor -) 20 mg PO HS [facility] Last Admin: 06/19/18 23:50 Dose: 20 mg Ticagrelor (Brilinta -) 90 mg PO BID [facility] Last Admin: 06/20/18 11:45 Dose: 90 mg - Objective Vital Signs: Vital Signs Temperature 97.6 F 06/20/18 14:42 Pulse Rate 60 06/20/18 14:42 Respiratory Rate 18 06/20/18 14:42 Blood Pressure 148/70 06/20/18 14:42 O2 Sat by Pulse Oximetry (%) 97 06/19/18 21:00 Constitutional: Yes: No Distress Eyes: Yes: Conjunctiva Clear Cardiovascular: Yes: Regular Rate and Rhythm, S1, S2 Respiratory: Yes: CTA Bilaterally Gastrointestinal: Yes: Normal Bowel Sounds, Soft Extremities: Yes: Other (TOE AMPUTATION SITE CLEAR NO ERYTHEMA OR DRAINAGE) Labs: CBC, BMP 06/19/18 11:20 06/19/18 11:20 INR, PTT INR 1.23 (0.83-1.09) H 06/13/18 05:30 Assessment/Plan POD # 3 AMPUTATION GANGRENOUS TOE CELLULITIS L LE IMPROVED AZOTEMIA DIABETES MELLITUS HX MRSA SUBSTITUTE PO AUGMENTIN 875MG BID X 7D OUTPATIENT F/U WOUND CARE CENTER
== END 2018-06-20 15:20 | disposition home or self-care (01) | DRG 256 ==
LOC: JER 13:49 → JERBED 16:29 → J4S 06-13 01:33 → J5S 06-19 13:50
PROVIDERS: ADMIT Internal Medicine; ATTEND Internal Medicine
PROC: 0Y6U0Z0 Detachment at Left 3rd Toe, Complete, Open Approach (ICD-10-PCS; principal; 2018-06-12)
PROC: 0QBP0ZX Excision of Left Metatarsal, Open Approach, Diagnostic (ICD-10-PCS; 2018-06-12)
DX: E11.52 Type 2 diabetes mellitus with diabetic peripheral angiopathy with gangrene (principal); L97.528 Non-pressure chronic ulcer of other part of left foot with other specified severity; E11.40 Type 2 diabetes mellitus with diabetic neuropathy, unspecified; L03.032 Cellulitis of left toe; I12.9 Hypertensive chronic kidney disease with stage 1 through stage 4 chronic kidney disease, or unspecified chronic kidney disease; N18.3 Chronic kidney disease, stage 3 (moderate); E11.22 Type 2 diabetes mellitus with diabetic chronic kidney disease; B95.61 Methicillin susceptible Staphylococcus aureus infection as the cause of diseases classified elsewhere; B95.1 Streptococcus, group B, as the cause of diseases classified elsewhere; E11.621 Type 2 diabetes mellitus with foot ulcer; I25.10 Atherosclerotic heart disease of native coronary artery without angina pectoris; Z95.1 Presence of aortocoronary bypass graft; Z95.5 Presence of coronary angioplasty implant and graft; Z79.84 Long term (current) use of oral hypoglycemic drugs; K21.9 Gastro-esophageal reflux disease without esophagitis; Z87.891 Personal history of nicotine dependence; I45.10 Unspecified right bundle-branch block; Z96.41 Presence of insulin pump (external) (internal); Z89.411 Acquired absence of right great toe; Z89.412 Acquired absence of left great toe; E66.9 Obesity, unspecified; Z68.33 Body mass index [BMI] 33.0-33.9, adult
CPT/HCPCS: 11042; 36415; 71046-TC-FY; 73630-TC-LT; 73723-LT; 80048; 80053; 82962; 83735; 84100; 85025; 85027; 85610; 85651; 85730; 86140; 86850; 86870; 86900; 86901; 87040; 87070; 87075; 87077; 87081; 87186; 87205; 88304-TC; 88305-TC; 88311-TC; 93005; 93010; 93926-TC; 93971-TC; 94760; 97116-GP; 97161-GP; 99284-25; G0480; J1644; J7030

== ENCOUNTER 2020-05-12 15:38 | Inpatient (IN) | payer OTHER, BC ==
[2020-05-12] MEDS ORDERED: VANCOMYCIN 2,000 MG in DEXTROSE 5%-WATER - 250 ML IVPB ONE (16:20)
[2020-05-12] MEDS ORDERED: PIPERACILLIN/TAZOB 4.5 GM 4.5 GM in DEXTROSE 5%-WATER 100 ML IVPB ONE (16:21)
[2020-05-12] MEDS ORDERED: PIPERACILLIN/TAZOB 4.5 GM 4.5 GM/100 ML BAG IVPB ONE (16:59)
[2020-05-12] MEDS ORDERED: VANCOMYCIN 1 GRAM (PRE-DOCKED) 1,000 MG/250 ML BAG IVPB ONE (17:32)
[2020-05-12 18:03] LABS: BASO % 0.5 % (0-2.0); EOS % 2.3 % (0-4.5); HEMATOCRIT 33.5 % (35.4-49); HEMOGLOBIN 10.8 GM/dL (11.7-16.9); LYMPH % 12.2 % (8-40); MCH 27.2 pg (25.7-33.7); MCHC 32.1 g/dl (32.0-35.9); MEAN CELL VOLUME 84.6 fl (80-96); MEAN PLT VOLUME 8.1 fl (7.5-11.1); MONO % 7.3 % (3.8-10.2); NEUT % 77.7 % (42.8-82.8); PLATELET COUNT 388 K/MM3 (134-434); RBC 3.96 M/mm3 (4.00-5.60); RDW 15.5 % (11.9-15.9); WHITE BLOOD COUNT 11.4 K/mm3 (4.0-10.0)
[2020-05-12 18:07] LABS: INR 1.13 (0.83-1.09); PROTHROMBIN TIME (PATIENT) 13.6 SEC (9.7-13.0)
[2020-05-12 18:10] LABS: ACTIVATED PTT 30.5 SECONDS (25.2-36.5)
[2020-05-12 18:20] LABS: POTASSIUM 4.6 mmol/L (3.5-5.1)
[2020-05-12 18:22] LABS: CALCIUM 9.5 mg/dL (8.5-10.1)
[2020-05-12 18:23] LABS: MAGNESIUM 2.6 mg/dL (1.8-2.4)
[2020-05-12 18:26] LABS: CREATININE 1.2 mg/dL (0.55-1.3)
[2020-05-12 18:27] LABS: BILIRUBIN,TOTAL 0.3 mg/dL (0.2-1); TOT PROT 8.1 g/dl (6.4-8.2)
[2020-05-13 00:16] VITALS: BMI 31.4
[2020-05-13] MEDS ORDERED: PIPERACILLIN/TAZOB 4.5 GM 4.5 GM in DEXTROSE 5%-WATER 100 ML IVPB SCH (04:45)
[2020-05-13] MEDS ORDERED: DEXTROSE 5%-WATER 100 ML IVPB ONE (05:14)
[2020-05-13] MEDS ORDERED: PIPERACILLIN/TAZOBACTAM 4.5 GM VIAL IVPB ONE (05:14)
[2020-05-13] MEDS ORDERED: VANCOMYCIN PREMIX 1.5 GM 1,500 MG/300 ML BAG IVPB SCH (07:00)
[2020-05-13 08:33] LABS: BASO % 0.4 % (0-2.0); EOS % 2.8 % (0-4.5); HEMATOCRIT 30.6 % (35.4-49); HEMOGLOBIN 10.1 GM/dL (11.7-16.9); LYMPH % 17.7 % (8-40); MCH 27.9 pg (25.7-33.7); MCHC 33.1 g/dl (32.0-35.9); MEAN CELL VOLUME 84.3 fl (80-96); MEAN PLT VOLUME 7.7 fl (7.5-11.1); MONO % 8.5 % (3.8-10.2); NEUT % 70.6 % (42.8-82.8); PLATELET COUNT 336 K/MM3 (134-434); RBC 3.63 M/mm3 (4.00-5.60); RDW 15.5 % (11.9-15.9); WHITE BLOOD COUNT 9.2 K/mm3 (4.0-10.0)
[2020-05-13 09:03] LABS: ALBUMIN 2.5 g/dl (3.4-5.0); BLOOD UREA NITROGEN 15.1 mg/dL (7-18); CALCIUM 8.7 mg/dL (8.5-10.1); MAGNESIUM 2.5 mg/dL (1.8-2.4)
[2020-05-13 09:06] LABS: CREATININE 1.2 mg/dL (0.55-1.3); PHOSPHOROUS 4.1 mg/dL (2.5-4.9)
[2020-05-13 09:08] LABS: BILIRUBIN,TOTAL 0.4 mg/dL (0.2-1); TOT PROT 6.9 g/dl (6.4-8.2)
[2020-05-13] MEDS ORDERED: PT OWN MED DRAWER 7, Y5N ONE ×3 (09:49→17:17)
[2020-05-13] MEDS ORDERED: PIPERACILLIN/TAZOBACTAM 3.375 GM VIAL IVPB ONE ×2 (09:49→17:12)
[2020-05-13] MEDS ORDERED: DEXTROSE 5%-WATER - 50 ML IVPB ONE ×2 (09:49→17:12)
[2020-05-13] MEDS ORDERED: TICAGRELOR 90 MG TABLET PO SCH (10:00)
[2020-05-13] MEDS ORDERED: ASPIRIN 81 MG CHEWABLE TABLETS PO SCH (10:00)
[2020-05-13] MEDS: CARVEDILOL 6.25 MG TABLET (FP) PO SCH ×2 (10:37→22:39)
[2020-05-13] MEDS: DULoxetine HCL 30 MG CAPSULE.DR PO SCH (10:37)
[2020-05-13] MEDS: LOSARTAN POTASSIUM 25 MG TABLET PO SCH (10:37)
[2020-05-13] MEDS: PIPERACILLIN/TAZOB 3.375 GM 3.375 GM in DEXTROSE 5%-WATER - 50 ML IVPB SCH ×2 (10:38→17:32)
[2020-05-13] MEDS ORDERED: INSULIN SLIDING SCALE (NOVOLOG) 1 VIAL SQ SCH (16:30)
[2020-05-13] MEDS: INSULIN SLIDING SCALE (NOVOLOG) 1 VIAL SQ SCH (17:50)
[2020-05-13] MEDS: VANCOMYCIN/WATER BAGS 1,250 MG/250 ML BAG IVPB SCH (19:03)
[2020-05-13] MEDS ORDERED: INSULIN (LEVEMIR) 100 UNITS/ML UNITS SQ SCH (22:00)
[2020-05-13] MEDS: ROSUVASTATIN CA 20 MG TABLET (FP) PO SCH (22:39)
[2020-05-13] MEDS: INSULIN (LEVEMIR) 100 UNITS/ML UNITS SQ SCH (22:39)
[2020-05-14] MEDS ORDERED: PIPERACILLIN/TAZOB 4.5 GM 4.5 GM in DEXTROSE 5%-WATER 100 ML IVPB SCH (02:00)
[2020-05-14] MEDS ORDERED: DEXTROSE 5%-WATER - 50 ML IVPB ONE ×2 (02:34→09:16)
[2020-05-14] MEDS ORDERED: PIPERACILLIN/TAZOBACTAM 3.375 GM VIAL IVPB ONE ×2 (02:34→09:16)
[2020-05-14] MEDS: PIPERACILLIN/TAZOB 3.375 GM 3.375 GM in DEXTROSE 5%-WATER - 50 ML IVPB SCH ×3 (02:48→18:29)
[2020-05-14] MEDS ORDERED: PT OWN MED DRAWER 7, Y5N ONE ×2 (05:41→17:18)
[2020-05-14] MEDS: INSULIN (LEVEMIR) 100 UNITS/ML UNITS SQ SCH ×2 (06:16→21:32)
[2020-05-14] MEDS: VANCOMYCIN/WATER BAGS 1,250 MG/250 ML BAG IVPB SCH ×2 (06:16→18:29)
[2020-05-14] MEDS: INSULIN SLIDING SCALE (NOVOLOG) 1 VIAL SQ SCH ×3 (06:56→17:32)
[2020-05-14] MEDS ORDERED: VANCOMYCIN PREMIX 1.5 GM 1,500 MG/300 ML BAG IVPB SCH (07:00)
[2020-05-14 07:18] LABS: BASO % 0.5 % (0-2.0); EOS % 3.1 % (0-4.5); HEMATOCRIT 31.1 % (35.4-49); HEMOGLOBIN 9.9 GM/dL (11.7-16.9); LYMPH % 20.1 % (8-40); MCHC 31.9 g/dl (32.0-35.9); MEAN CELL VOLUME 84.7 fl (80-96); MEAN PLT VOLUME 8.1 fl (7.5-11.1); MONO % 8.5 % (3.8-10.2); NEUT % 67.8 % (42.8-82.8); PLATELET COUNT 329 K/MM3 (134-434); RBC 3.67 M/mm3 (4.00-5.60); RDW 15.4 % (11.9-15.9); WHITE BLOOD COUNT 8.8 K/mm3 (4.0-10.0)
[2020-05-14 07:40] LABS: POTASSIUM 4.6 mmol/L (3.5-5.1)
[2020-05-14 07:46] LABS: ALBUMIN 2.5 g/dl (3.4-5.0); BLOOD UREA NITROGEN 12.4 mg/dL (7-18)
[2020-05-14 07:47] LABS: MAGNESIUM 2.4 mg/dL (1.8-2.4)
[2020-05-14 07:49] LABS: CREATININE 1.1 mg/dL (0.55-1.3)
[2020-05-14 07:51] LABS: BILIRUBIN,TOTAL 0.3 mg/dL (0.2-1); TOT PROT 6.9 g/dl (6.4-8.2)
[2020-05-14] MEDS: LOSARTAN POTASSIUM 25 MG TABLET PO SCH (09:37)
[2020-05-14] MEDS: DULoxetine HCL 30 MG CAPSULE.DR PO SCH (09:37)
[2020-05-14] MEDS: CARVEDILOL 6.25 MG TABLET (FP) PO SCH ×2 (09:37→21:28)
[2020-05-14] MEDS: ENOXAPARIN NA (PORCINE) 40 MG/0.4 ML DISP.SYRIN SQ SCH (09:38)
[2020-05-14] MEDS ORDERED: INSULIN (NOVOLOG) ASPART 100 UNITS/ML 10ML VIAL ONE (17:27)
[2020-05-14] MEDS: ROSUVASTATIN CA 20 MG TABLET (FP) PO SCH (21:28)
[2020-05-15] MEDS: PIPERACILLIN/TAZOB 3.375 GM 3.375 GM in DEXTROSE 5%-WATER - 50 ML IVPB SCH ×3 (01:38→17:39)
[2020-05-15] MEDS ORDERED: INSULIN (NOVOLOG) ASPART 100 UNITS/ML 10ML VIAL ONE (04:45)
[2020-05-15] MEDS: VANCOMYCIN/WATER BAGS 1,250 MG/250 ML BAG IVPB SCH (05:26)
[2020-05-15] MEDS: INSULIN SLIDING SCALE (NOVOLOG) 1 VIAL SQ SCH ×3 (06:02→17:38)
[2020-05-15] MEDS: INSULIN (LEVEMIR) 100 UNITS/ML UNITS SQ SCH ×2 (07:28→21:17)
[2020-05-15 08:27] LABS: BASO % 0.7 % (0-2.0); EOS % 3.2 % (0-4.5); HEMATOCRIT 32.2 % (35.4-49); HEMOGLOBIN 10.5 GM/dL (11.7-16.9); LYMPH % 20.8 % (8-40); MCH 27.5 pg (25.7-33.7); MCHC 32.7 g/dl (32.0-35.9); MEAN CELL VOLUME 84.1 fl (80-96); MEAN PLT VOLUME 7.9 fl (7.5-11.1); MONO % 6.3 % (3.8-10.2); PLATELET COUNT 387 K/MM3 (134-434); RBC 3.83 M/mm3 (4.00-5.60); RDW 14.9 % (11.9-15.9); WHITE BLOOD COUNT 7.9 K/mm3 (4.0-10.0)
[2020-05-15 08:44] LABS: POTASSIUM 4.4 mmol/L (3.5-5.1)
[2020-05-15 08:50] LABS: ALBUMIN 2.8 g/dl (3.4-5.0); BLOOD UREA NITROGEN 15.7 mg/dL (7-18); CALCIUM 9.3 mg/dL (8.5-10.1)
[2020-05-15 08:51] LABS: MAGNESIUM 2.5 mg/dL (1.8-2.4)
[2020-05-15 08:53] LABS: CREATININE 1.3 mg/dL (0.55-1.3)
[2020-05-15 08:54] LABS: PHOSPHOROUS 3.9 mg/dL (2.5-4.9)
[2020-05-15 08:55] LABS: BILIRUBIN,TOTAL 0.3 mg/dL (0.2-1); TOT PROT 7.9 g/dl (6.4-8.2)
[2020-05-15] MEDS ORDERED: DEXTROSE 5%-WATER - 50 ML IVPB ONE ×2 (09:32→17:16)
[2020-05-15] MEDS ORDERED: PIPERACILLIN/TAZOBACTAM 3.375 GM VIAL IVPB ONE ×2 (09:32→17:16)
[2020-05-15] MEDS: DULoxetine HCL 30 MG CAPSULE.DR PO SCH (09:38)
[2020-05-15] MEDS: LOSARTAN POTASSIUM 25 MG TABLET PO SCH (09:38)
[2020-05-15] MEDS: ENOXAPARIN NA (PORCINE) 40 MG/0.4 ML DISP.SYRIN SQ SCH (09:38)
[2020-05-15] MEDS: CARVEDILOL 6.25 MG TABLET (FP) PO SCH ×2 (09:38→21:08)
[2020-05-15] MEDS: ROSUVASTATIN CA 20 MG TABLET (FP) PO SCH (21:08)
[2020-05-16] MEDS ORDERED: PIPERACILLIN/TAZOBACTAM 3.375 GM VIAL IVPB ONE ×3 (00:36→17:06)
[2020-05-16] MEDS ORDERED: DEXTROSE 5%-WATER - 50 ML IVPB ONE ×3 (00:37→17:06)
[2020-05-16] MEDS: PIPERACILLIN/TAZOB 3.375 GM 3.375 GM in DEXTROSE 5%-WATER - 50 ML IVPB SCH ×3 (01:34→17:08)
[2020-05-16] MEDS: INSULIN SLIDING SCALE (NOVOLOG) 1 VIAL SQ SCH ×3 (06:07→16:46)
[2020-05-16] MEDS: INSULIN (LEVEMIR) 100 UNITS/ML UNITS SQ SCH (06:44)
[2020-05-16] MEDS ORDERED: PT OWN MED DRAWER 7, Y5N ONE ×2 (09:49→11:40)
[2020-05-16] MEDS: CARVEDILOL 6.25 MG TABLET (FP) PO SCH ×2 (09:55→22:10)
[2020-05-16] MEDS: LOSARTAN POTASSIUM 25 MG TABLET PO SCH (09:55)
[2020-05-16] MEDS: DULoxetine HCL 30 MG CAPSULE.DR PO SCH (09:55)
[2020-05-16] MEDS: ENOXAPARIN NA (PORCINE) 40 MG/0.4 ML DISP.SYRIN SQ SCH (09:56)
[2020-05-16] MEDS ORDERED: INSULIN (LEVEMIR) 100 UNITS/ML UNITS SQ SCH ×3 (10:48→22:00)
[2020-05-16 12:28] LABS: BASO % 0.7 % (0-2.0); EOS % 3.5 % (0-4.5); HEMATOCRIT 32.3 % (35.4-49); HEMOGLOBIN 10.5 GM/dL (11.7-16.9); LYMPH % 19.8 % (8-40); MCH 27.5 pg (25.7-33.7); MCHC 32.4 g/dl (32.0-35.9); MEAN CELL VOLUME 84.8 fl (80-96); MEAN PLT VOLUME 7.8 fl (7.5-11.1); MONO % 7.1 % (3.8-10.2); NEUT % 68.9 % (42.8-82.8); PLATELET COUNT 400 K/MM3 (134-434); RBC 3.81 M/mm3 (4.00-5.60); RDW 15.1 % (11.9-15.9); WHITE BLOOD COUNT 7.1 K/mm3 (4.0-10.0)
[2020-05-16 12:48] LABS: POTASSIUM 4.5 mmol/L (3.5-5.1)
[2020-05-16 12:51] LABS: ALBUMIN 2.9 g/dl (3.4-5.0); BLOOD UREA NITROGEN 15.3 mg/dL (7-18); CALCIUM 8.9 mg/dL (8.5-10.1)
[2020-05-16 12:54] LABS: CREATININE 1.2 mg/dL (0.55-1.3)
[2020-05-16 12:55] LABS: BILIRUBIN,TOTAL 0.3 mg/dL (0.2-1); TOT PROT 7.8 g/dl (6.4-8.2)
[2020-05-16] MEDS ORDERED: VANCOMYCIN HCL 1,500 MG in DEXTROSE 5%-WATER - 250 ML IVPB SCH (14:45)
[2020-05-16] MEDS ORDERED: VANCOMYCIN HCL 1,500 MG in DEXTROSE 5%-WATER - 500 ML IVPB SCH (18:00)
[2020-05-16] MEDS ORDERED: VANCOMYCIN PREMIX 1.5 GM 1,500 MG/300 ML BAG IVPB SCH (18:00)
[2020-05-16] MEDS: ROSUVASTATIN CA 20 MG TABLET (FP) PO SCH (22:10)
[2020-05-17] MEDS ORDERED: PIPERACILLIN/TAZOBACTAM 3.375 GM VIAL IVPB ONE ×3 (01:39→17:30)
[2020-05-17] MEDS ORDERED: DEXTROSE 5%-WATER - 50 ML IVPB ONE ×3 (01:40→17:30)
[2020-05-17] MEDS: PIPERACILLIN/TAZOB 3.375 GM 3.375 GM in DEXTROSE 5%-WATER - 50 ML IVPB SCH ×3 (01:48→17:37)
[2020-05-17] MEDS: INSULIN SLIDING SCALE (NOVOLOG) 1 VIAL SQ SCH ×3 (06:12→17:34)
[2020-05-17] MEDS ORDERED: INSULIN (LEVEMIR) 100 UNITS/ML UNITS SQ SCH ×2 (07:00→22:00)
[2020-05-17 08:03] LABS: BASO % 0.7 % (0-2.0); EOS % 3.3 % (0-4.5); HEMATOCRIT 33.6 % (35.4-49); HEMOGLOBIN 10.8 GM/dL (11.7-16.9); LYMPH % 20.9 % (8-40); MCH 27.3 pg (25.7-33.7); MCHC 32.1 g/dl (32.0-35.9); MEAN CELL VOLUME 84.9 fl (80-96); MEAN PLT VOLUME 7.6 fl (7.5-11.1); MONO % 6.1 % (3.8-10.2); PLATELET COUNT 407 K/MM3 (134-434); RBC 3.96 M/mm3 (4.00-5.60); RDW 15.1 % (11.9-15.9); WHITE BLOOD COUNT 7.3 K/mm3 (4.0-10.0)
[2020-05-17 09:08] LABS: BLOOD UREA NITROGEN 14.8 mg/dL (7-18); CALCIUM 9.1 mg/dL (8.5-10.1)
[2020-05-17 09:10] LABS: CREATININE 1.1 mg/dL (0.55-1.3); MAGNESIUM 2.7 mg/dL (1.8-2.4); PHOSPHOROUS 3.6 mg/dL (2.5-4.9)
[2020-05-17 09:12] LABS: BILIRUBIN,TOTAL 0.3 mg/dL (0.2-1); TOT PROT 8.2 g/dl (6.4-8.2)
[2020-05-17] MEDS: LOSARTAN POTASSIUM 25 MG TABLET PO SCH (09:37)
[2020-05-17] MEDS: CARVEDILOL 6.25 MG TABLET (FP) PO SCH ×2 (09:37→22:02)
[2020-05-17] MEDS: DULoxetine HCL 30 MG CAPSULE.DR PO SCH (09:37)
[2020-05-17] MEDS ORDERED: VANCOMYCIN HCL 1,500 MG in DEXTROSE 5%-WATER - 250 ML IVPB SCH (10:00)
[2020-05-17] MEDS ORDERED: LIDOCAINE HCL 2% (20ML MULTI-DOSE VIAL) ONE (12:11)
[2020-05-17] MEDS ORDERED: MIDAZOLAM HCL 2 MG/2 ML SINGLE DOSE VIAL ONE ×3 (12:44→13:42)
[2020-05-17] MEDS ORDERED: ONDANSETRON 4 MG/2 ML VIAL IVPUSH PRN ×2 (14:21→15:03)
[2020-05-17] MEDS ORDERED: LACTATED RINGERS SOLUTION 1,000 ML IV SCH (14:30)
[2020-05-17] MEDS ORDERED: PT OWN MED DRAWER 7, Y5N ONE ×2 (17:30→22:05)
[2020-05-17] MEDS: LACTATED RINGERS SOLUTION 1,000 ML IV SCH (17:38)
[2020-05-17] MEDS ORDERED: VANCOMYCIN PREMIX 1.5 GM 1,500 MG/300 ML BAG IVPB SCH ×2 (18:00)
[2020-05-17] MEDS: ROSUVASTATIN CA 20 MG TABLET (FP) PO SCH (22:02)
[2020-05-17] MEDS: INSULIN (LEVEMIR) 100 UNITS/ML UNITS SQ SCH (22:09)
[2020-05-17] MEDS: TICAGRELOR 90 MG TABLET PO SCH (23:52)
[2020-05-18] MEDS ORDERED: DEXTROSE 5%-WATER - 50 ML IVPB ONE ×3 (02:17→17:21)
[2020-05-18] MEDS ORDERED: PIPERACILLIN/TAZOBACTAM 3.375 GM VIAL IVPB ONE ×3 (02:17→17:21)
[2020-05-18] MEDS: PIPERACILLIN/TAZOB 3.375 GM 3.375 GM in DEXTROSE 5%-WATER - 50 ML IVPB SCH ×3 (02:21→17:27)
[2020-05-18] MEDS: INSULIN SLIDING SCALE (NOVOLOG) 1 VIAL SQ SCH ×3 (06:43→17:19)
[2020-05-18] MEDS: INSULIN (LEVEMIR) 100 UNITS/ML UNITS SQ SCH ×2 (06:44→22:10)
[2020-05-18] MEDS ORDERED: INSULIN (LEVEMIR) 100 UNITS/ML UNITS SQ SCH (07:00)
[2020-05-18 08:12] LABS: BASO % 0.6 % (0-2.0); EOS % 1.8 % (0-4.5); HEMOGLOBIN 9.3 GM/dL (11.7-16.9); LYMPH % 14.3 % (8-40); MCH 27.7 pg (25.7-33.7); MCHC 33.3 g/dl (32.0-35.9); MEAN CELL VOLUME 83.2 fl (80-96); MEAN PLT VOLUME 7.7 fl (7.5-11.1); MONO % 7.4 % (3.8-10.2); NEUT % 75.9 % (42.8-82.8); PLATELET COUNT 358 K/MM3 (134-434); RBC 3.37 M/mm3 (4.00-5.60); RDW 15.1 % (11.9-15.9); WHITE BLOOD COUNT 10.1 K/mm3 (4.0-10.0)
[2020-05-18 08:18] LABS: POTASSIUM 4.5 mmol/L (3.5-5.1)
[2020-05-18 08:28] LABS: CALCIUM 8.6 mg/dL (8.5-10.1)
[2020-05-18 08:29] LABS: ALBUMIN 2.6 g/dl (3.4-5.0); MAGNESIUM 2.5 mg/dL (1.8-2.4)
[2020-05-18 08:32] LABS: BILIRUBIN,TOTAL 0.3 mg/dL (0.2-1); CREATININE 1.1 mg/dL (0.55-1.3); TOT PROT 6.9 g/dl (6.4-8.2)
[2020-05-18] MEDS: CARVEDILOL 6.25 MG TABLET (FP) PO SCH ×3 (09:22→22:09)
[2020-05-18] MEDS: DULoxetine HCL 30 MG CAPSULE.DR PO SCH (09:22)
[2020-05-18] MEDS: ASPIRIN 81 MG CHEWABLE TABLETS PO SCH (09:22)
[2020-05-18] MEDS: LOSARTAN POTASSIUM 25 MG TABLET PO SCH (09:22)
[2020-05-18] MEDS ORDERED: PT OWN MED DRAWER 7, Y5N ONE ×2 (09:25→21:55)
[2020-05-18] MEDS: TICAGRELOR 90 MG TABLET PO SCH ×2 (09:26→21:56)
[2020-05-18] MEDS: ROSUVASTATIN CA 20 MG TABLET (FP) PO SCH (21:54)
[2020-05-19] MEDS ORDERED: PIPERACILLIN/TAZOBACTAM 3.375 GM VIAL IVPB ONE ×3 (01:34→18:49)
[2020-05-19] MEDS ORDERED: DEXTROSE 5%-WATER - 50 ML IVPB ONE ×3 (01:35→18:50)
[2020-05-19] MEDS: PIPERACILLIN/TAZOB 3.375 GM 3.375 GM in DEXTROSE 5%-WATER - 50 ML IVPB SCH ×3 (01:49→18:53)
[2020-05-19] MEDS: INSULIN SLIDING SCALE (NOVOLOG) 1 VIAL SQ SCH ×3 (06:24→17:03)
[2020-05-19] MEDS: INSULIN (LEVEMIR) 100 UNITS/ML UNITS SQ SCH ×2 (06:24→21:28)
[2020-05-19 08:19] LABS: BASO % 0.7 % (0-2.0); EOS % 2.1 % (0-4.5); HEMATOCRIT 27.4 % (35.4-49); LYMPH % 15.5 % (8-40); MCH 27.5 pg (25.7-33.7); MCHC 32.8 g/dl (32.0-35.9); MEAN CELL VOLUME 83.8 fl (80-96); MEAN PLT VOLUME 8.1 fl (7.5-11.1); MONO % 8.1 % (3.8-10.2); NEUT % 73.6 % (42.8-82.8); PLATELET COUNT 320 K/MM3 (134-434); RBC 3.28 M/mm3 (4.00-5.60); RDW 15.2 % (11.9-15.9)
[2020-05-19 08:31] LABS: POTASSIUM 4.2 mmol/L (3.5-5.1)
[2020-05-19 08:34] LABS: ALBUMIN 2.6 g/dl (3.4-5.0); CALCIUM 8.7 mg/dL (8.5-10.1)
[2020-05-19 08:35] LABS: BLOOD UREA NITROGEN 13.7 mg/dL (7-18); MAGNESIUM 2.6 mg/dL (1.8-2.4)
[2020-05-19 08:38] LABS: CREATININE 1.1 mg/dL (0.55-1.3); PHOSPHOROUS 3.1 mg/dL (2.5-4.9)
[2020-05-19 08:39] LABS: BILIRUBIN,TOTAL 0.5 mg/dL (0.2-1); TOT PROT 6.9 g/dl (6.4-8.2)
[2020-05-19] MEDS ORDERED: PT OWN MED DRAWER 7, Y5N ONE ×2 (10:49→21:05)
[2020-05-19] MEDS: ASPIRIN 81 MG CHEWABLE TABLETS PO SCH (10:53)
[2020-05-19] MEDS: TICAGRELOR 90 MG TABLET PO SCH ×2 (10:54→21:23)
[2020-05-19] MEDS: LOSARTAN POTASSIUM 25 MG TABLET PO SCH (10:54)
[2020-05-19] MEDS: CARVEDILOL 6.25 MG TABLET (FP) PO SCH ×2 (10:54→21:23)
[2020-05-19] MEDS: DULoxetine HCL 30 MG CAPSULE.DR PO SCH (10:54)
[2020-05-19] MEDS: LACTATED RINGERS SOLUTION 1,000 ML IV SCH (12:58)
[2020-05-19] MEDS: ROSUVASTATIN CA 20 MG TABLET (FP) PO SCH (21:23)
[2020-05-20] MEDS ORDERED: DEXTROSE 5%-WATER - 50 ML IVPB ONE ×3 (01:39→17:32)
[2020-05-20] MEDS ORDERED: PIPERACILLIN/TAZOBACTAM 3.375 GM VIAL IVPB ONE ×3 (01:39→17:32)
[2020-05-20] MEDS: PIPERACILLIN/TAZOB 3.375 GM 3.375 GM in DEXTROSE 5%-WATER - 50 ML IVPB SCH ×3 (02:19→17:34)
[2020-05-20] MEDS: INSULIN (LEVEMIR) 100 UNITS/ML UNITS SQ SCH ×2 (06:33→22:06)
[2020-05-20] MEDS: INSULIN SLIDING SCALE (NOVOLOG) 1 VIAL SQ SCH ×3 (06:33→17:09)
[2020-05-20] MEDS ORDERED: INSULIN (NOVOLOG) ASPART 100 UNITS/ML 10ML VIAL ONE ×3 (06:46→11:46)
[2020-05-20 07:51] LABS: BASO % 0.6 % (0-2.0); EOS % 2.6 % (0-4.5); HEMOGLOBIN 8.8 GM/dL (11.7-16.9); LYMPH % 16.3 % (8-40); MCH 27.4 pg (25.7-33.7); MCHC 32.7 g/dl (32.0-35.9); MEAN CELL VOLUME 83.9 fl (80-96); MONO % 7.3 % (3.8-10.2); NEUT % 73.2 % (42.8-82.8); PLATELET COUNT 315 K/MM3 (134-434); RBC 3.22 M/mm3 (4.00-5.60); RDW 15.2 % (11.9-15.9); WHITE BLOOD COUNT 9.5 K/mm3 (4.0-10.0)
[2020-05-20 08:04] LABS: POTASSIUM 4.8 mmol/L (3.5-5.1)
[2020-05-20 08:11] LABS: ALBUMIN 2.6 g/dl (3.4-5.0); CALCIUM 9.2 mg/dL (8.5-10.1)
[2020-05-20 08:12] LABS: BLOOD UREA NITROGEN 15.4 mg/dL (7-18); MAGNESIUM 2.8 mg/dL (1.8-2.4)
[2020-05-20 08:14] LABS: CREATININE 1.2 mg/dL (0.55-1.3); PHOSPHOROUS 3.5 mg/dL (2.5-4.9)
[2020-05-20 08:16] LABS: BILIRUBIN,TOTAL 0.3 mg/dL (0.2-1); TOT PROT 7.3 g/dl (6.4-8.2)
[2020-05-20] MEDS: LOSARTAN POTASSIUM 25 MG TABLET PO SCH (09:10)
[2020-05-20] MEDS: ASPIRIN 81 MG CHEWABLE TABLETS PO SCH (09:10)
[2020-05-20] MEDS: DULoxetine HCL 30 MG CAPSULE.DR PO SCH (09:10)
[2020-05-20] MEDS: CARVEDILOL 6.25 MG TABLET (FP) PO SCH ×2 (09:10→22:06)
[2020-05-20] MEDS ORDERED: PT OWN MED DRAWER 7, Y5N ONE ×3 (09:19→20:46)
[2020-05-20] MEDS: TICAGRELOR 90 MG TABLET PO SCH ×2 (09:20→22:05)
[2020-05-20] MEDS ORDERED: ENOXAPARIN NA (PORCINE) 40 MG/0.4 ML DISP.SYRIN SQ SCH (10:00)
[2020-05-20] MEDS: ROSUVASTATIN CA 20 MG TABLET (FP) PO SCH (22:05)
[2020-05-21] MEDS ORDERED: PIPERACILLIN/TAZOBACTAM 3.375 GM VIAL IVPB ONE ×3 (01:14→17:01)
[2020-05-21] MEDS ORDERED: DEXTROSE 5%-WATER - 50 ML IVPB ONE ×3 (01:14→17:01)
[2020-05-21] MEDS: PIPERACILLIN/TAZOB 3.375 GM 3.375 GM in DEXTROSE 5%-WATER - 50 ML IVPB SCH ×3 (01:30→17:05)
[2020-05-21] MEDS: INSULIN SLIDING SCALE (NOVOLOG) 1 VIAL SQ SCH ×3 (06:01→17:40)
[2020-05-21] MEDS: INSULIN (LEVEMIR) 100 UNITS/ML UNITS SQ SCH ×2 (06:01→21:59)
[2020-05-21] MEDS ORDERED: INSULIN (NOVOLOG) ASPART 100 UNITS/ML 10ML VIAL ONE (06:21)
[2020-05-21 08:44] LABS: BASO % 0.5 % (0-2.0); EOS % 2.7 % (0-4.5); HEMATOCRIT 26.6 % (35.4-49); HEMOGLOBIN 8.9 GM/dL (11.7-16.9); LYMPH % 16.9 % (8-40); MCH 27.6 pg (25.7-33.7); MCHC 33.3 g/dl (32.0-35.9); MEAN CELL VOLUME 82.9 fl (80-96); MEAN PLT VOLUME 7.8 fl (7.5-11.1); MONO % 6.6 % (3.8-10.2); NEUT % 73.3 % (42.8-82.8); PLATELET COUNT 318 K/MM3 (134-434); RBC 3.21 M/mm3 (4.00-5.60); RDW 15.3 % (11.9-15.9); WHITE BLOOD COUNT 7.5 K/mm3 (4.0-10.0)
[2020-05-21 09:16] LABS: POTASSIUM 4.3 mmol/L (3.5-5.1)
[2020-05-21] MEDS ORDERED: PT OWN MED DRAWER 7, Y5N ONE ×2 (09:29→20:48)
[2020-05-21 09:38] LABS: ALBUMIN 2.5 g/dl (3.4-5.0)
[2020-05-21 09:40] LABS: CREATININE 1.1 mg/dL (0.55-1.3)
[2020-05-21 09:41] LABS: BILIRUBIN,TOTAL 0.3 mg/dL (0.2-1); MAGNESIUM 2.5 mg/dL (1.8-2.4); PHOSPHOROUS 3.7 mg/dL (2.5-4.9)
[2020-05-21 09:42] LABS: TOT PROT 7.1 g/dl (6.4-8.2)
[2020-05-21] MEDS: CARVEDILOL 6.25 MG TABLET (FP) PO SCH ×2 (09:43→21:58)
[2020-05-21] MEDS: DULoxetine HCL 30 MG CAPSULE.DR PO SCH (09:43)
[2020-05-21] MEDS: LOSARTAN POTASSIUM 25 MG TABLET PO SCH (09:43)
[2020-05-21] MEDS: ASPIRIN 81 MG CHEWABLE TABLETS PO SCH (09:43)
[2020-05-21] MEDS: TICAGRELOR 90 MG TABLET PO SCH ×2 (09:43→21:58)
[2020-05-21] MEDS: ROSUVASTATIN CA 20 MG TABLET (FP) PO SCH (21:58)
[2020-05-22] MEDS: CEFTRIAXONE 2 GM in DEXTROSE 5%-WATER - 2 GM/50 ML IVPB IVPB SCH ×2 (02:13→09:48)
[2020-05-22] MEDS: INSULIN (LEVEMIR) 100 UNITS/ML UNITS SQ SCH ×2 (06:20→21:25)
[2020-05-22] MEDS: metroNIDAZOLE 250 MG TABLET PO SCH ×3 (06:20→21:25)
[2020-05-22] MEDS: INSULIN SLIDING SCALE (NOVOLOG) 1 VIAL SQ SCH ×3 (06:21→17:18)
[2020-05-22] MEDS ORDERED: PT OWN MED DRAWER 7, Y5N ONE (09:34)
[2020-05-22] MEDS ORDERED: DEXTROSE 5%-WATER - 50 ML IVPB ONE (09:35)
[2020-05-22] MEDS: ASPIRIN 81 MG CHEWABLE TABLETS PO SCH (09:47)
[2020-05-22] MEDS: DULoxetine HCL 30 MG CAPSULE.DR PO SCH (09:47)
[2020-05-22] MEDS: TICAGRELOR 90 MG TABLET PO SCH (09:47)
[2020-05-22] MEDS: LOSARTAN POTASSIUM 25 MG TABLET PO SCH (09:47)
[2020-05-22] MEDS: CARVEDILOL 6.25 MG TABLET (FP) PO SCH ×2 (09:48→21:25)
[2020-05-22] MEDS: ROSUVASTATIN CA 20 MG TABLET (FP) PO SCH (21:25)
[2020-05-23 01:57] LABS: BASO % 0.7 % (0-2.0); EOS % 2.7 % (0-4.5); HEMATOCRIT 27.7 % (35.4-49); LYMPH % 19.7 % (8-40); MCH 27.1 pg (25.7-33.7); MCHC 32.6 g/dl (32.0-35.9); MEAN CELL VOLUME 83.2 fl (80-96); MEAN PLT VOLUME 7.8 fl (7.5-11.1); MONO % 6.8 % (3.8-10.2); NEUT % 70.1 % (42.8-82.8); PLATELET COUNT 385 K/MM3 (134-434); RBC 3.33 M/mm3 (4.00-5.60); RDW 15.1 % (11.9-15.9); WHITE BLOOD COUNT 8.8 K/mm3 (4.0-10.0)
[2020-05-23 02:42] LABS: ALBUMIN 2.7 g/dl (3.4-5.0); MAGNESIUM 2.1 mg/dL (1.8-2.4)
[2020-05-23 02:45] LABS: CREATININE 1.2 mg/dL (0.55-1.3); PHOSPHOROUS 3.6 mg/dL (2.5-4.9)
[2020-05-23 02:46] LABS: BILIRUBIN,TOTAL 0.2 mg/dL (0.2-1); CALCIUM 8.9 mg/dL (8.5-10.1); POTASSIUM 4.2 mmol/L (3.5-5.1); TOT PROT 7.6 g/dl (6.4-8.2)
[2020-05-23 05:55] VITALS: BP 118/58; PULSE 56; TEMP 97.9
[2020-05-23] MEDS: metroNIDAZOLE 250 MG TABLET PO SCH (05:56)
[2020-05-23] MEDS: INSULIN SLIDING SCALE (NOVOLOG) 1 VIAL SQ SCH ×2 (06:02→12:08)
[2020-05-23] MEDS: INSULIN (LEVEMIR) 100 UNITS/ML UNITS SQ SCH (06:02)
[2020-05-23] MEDS ORDERED: INSULIN (LEVEMIR) 100 UNITS/ML UNITS SQ ONE (06:51)
[2020-05-23] MEDS ORDERED: DEXTROSE 5%-WATER - 50 ML IVPB ONE (09:25)
[2020-05-23] MEDS: CARVEDILOL 6.25 MG TABLET (FP) PO SCH (09:31)
[2020-05-23] MEDS: CEFTRIAXONE 2 GM in DEXTROSE 5%-WATER - 2 GM/50 ML IVPB IVPB SCH (09:31)
[2020-05-23] MEDS: DULoxetine HCL 30 MG CAPSULE.DR PO SCH (09:31)
[2020-05-23] MEDS: LOSARTAN POTASSIUM 25 MG TABLET PO SCH (09:31)
[2020-05-23 10:06] LABS: BASO % 0.6 % (0-2.0); EOS % 2.5 % (0-4.5); HEMATOCRIT 29.3 % (35.4-49); HEMOGLOBIN 9.6 GM/dL (11.7-16.9); MCH 27.5 pg (25.7-33.7); MCHC 32.6 g/dl (32.0-35.9); MEAN CELL VOLUME 84.2 fl (80-96); MEAN PLT VOLUME 7.9 fl (7.5-11.1); MONO % 6.8 % (3.8-10.2); NEUT % 72.1 % (42.8-82.8); PLATELET COUNT 402 K/MM3 (134-434); RBC 3.48 M/mm3 (4.00-5.60); RDW 15.2 % (11.9-15.9); WHITE BLOOD COUNT 7.9 K/mm3 (4.0-10.0)
[2020-05-23 10:23] LABS: POTASSIUM 4.3 mmol/L (3.5-5.1)
[2020-05-23 10:28] LABS: ALBUMIN 2.9 g/dl (3.4-5.0); BLOOD UREA NITROGEN 16.7 mg/dL (7-18); CALCIUM 9.1 mg/dL (8.5-10.1); MAGNESIUM 2.3 mg/dL (1.8-2.4)
[2020-05-23 10:31] LABS: CREATININE 1.1 mg/dL (0.55-1.3); PHOSPHOROUS 3.7 mg/dL (2.5-4.9)
[2020-05-23 10:32] LABS: BILIRUBIN,TOTAL 0.3 mg/dL (0.2-1); TOT PROT 8.1 g/dl (6.4-8.2)
== END 2020-05-23 14:09 | disposition home health service (06) | DRG 240 ==
LOC: JER 15:38 → JERBED 19:46 → J8W 23:15 → J6S 05-22 23:36
PROVIDERS: ADMIT Internal Medicine; ATTEND Internal Medicine
PROC: 0Y6M0ZC Detachment at Right Foot, Partial 3rd Ray, Open Approach (ICD-10-PCS; 2020-05-17)
PROC: 0Y6M0ZD Detachment at Right Foot, Partial 4th Ray, Open Approach (ICD-10-PCS; 2020-05-17)
PROC: 0Y6M0ZF Detachment at Right Foot, Partial 5th Ray, Open Approach (ICD-10-PCS; 2020-05-17)
PROC: 0Y6M0ZB Detachment at Right Foot, Partial 2nd Ray, Open Approach (ICD-10-PCS; principal; 2020-05-17 12:30)
PROC: 05H933Z Insertion of Infusion Device into Right Brachial Vein, Percutaneous Approach (ICD-10-PCS; 2020-05-23)
PROC: B54MZZA Ultrasonography of Right Upper Extremity Veins, Guidance (ICD-10-PCS; 2020-05-23)
DX: E11.52 Type 2 diabetes mellitus with diabetic peripheral angiopathy with gangrene (principal); I96 Gangrene, not elsewhere classified; M86.8X7 Other osteomyelitis, ankle and foot; E11.621 Type 2 diabetes mellitus with foot ulcer; E11.69 Type 2 diabetes mellitus with other specified complication; L97.513 Non-pressure chronic ulcer of other part of right foot with necrosis of muscle; E11.40 Type 2 diabetes mellitus with diabetic neuropathy, unspecified; E11.649 Type 2 diabetes mellitus with hypoglycemia without coma; E11.22 Type 2 diabetes mellitus with diabetic chronic kidney disease; Z95.1 Presence of aortocoronary bypass graft; I25.10 Atherosclerotic heart disease of native coronary artery without angina pectoris; Z79.4 Long term (current) use of insulin; D64.9 Anemia, unspecified; I12.9 Hypertensive chronic kidney disease with stage 1 through stage 4 chronic kidney disease, or unspecified chronic kidney disease; N18.31 Chronic kidney disease, stage 3a
CPT/HCPCS: 36415; 36569; 73630-TC-RT-FY; 73721-RT-TC; 80053; 82728; 82962; 83540; 83550; 83605; 83735; 84100; 85025; 85610; 85730; 86850; 86900; 86901; 87040; 87070; 87077; 87186; 87205; 88305-TC; 88307-TC; 88311-TC; 93005; 93010; 94010; 94760; 97116-GP; 97161-GP; 99285-25; C9803; G0463-25; G0480; U0003

== ENCOUNTER 2020-10-06 04:34 | Inpatient (IN) | payer OTHER, BC ==
[2020-10-05 10:15] VITALS: BMI 31.8
[2020-10-06] MEDS ORDERED: HEPARIN NA (PORCINE) 5,000 UNITS/ML 1ML VIAL ONE (07:17)
[2020-10-06] MEDS ORDERED: LIDOCAINE HCL 1%, 10 MG/ML (20ML VIAL) ONE (07:17)
[2020-10-06] MEDS ORDERED: PROPOFOL 20 ML ONE (07:23)
[2020-10-06] MEDS ORDERED: MIDAZOLAM HCL 2 MG/2 ML SINGLE DOSE VIAL ONE (07:23)
[2020-10-06] MEDS ORDERED: SUCCINYLCHOLINE CHLORIDE 200 MG/10 ML SYRINGE ONE (07:23)
[2020-10-06] MEDS ORDERED: DEXAMETHASONE SOD PHOSPHATE 4 MG/1 ML VIAL ONE (07:23)
[2020-10-06] MEDS ORDERED: ceFAZolin SODIUM 1 GM VIAL IVPB ONE (08:00)
[2020-10-06] MEDS ORDERED: LIDOCAINE HCL 1%, 10 MG/ML (20ML VIAL) NR ONE (08:07)
[2020-10-06] MEDS ORDERED: VANCOMYCIN 1,000 MG VIAL (RESTRICTED TO ID ONLY) ONE (08:21)
[2020-10-06] MEDS ORDERED: oxyCODONE HCL 5 MG TABLET PO PRN (09:27)
[2020-10-06] MEDS ORDERED: ONDANSETRON 4 MG/2 ML VIAL IVPUSH PRN (10:59)
[2020-10-06 11:23] LABS: BASO % 0.5 % (0-2.0); EOS % 1.9 % (0-4.5); HEMATOCRIT 29.5 % (35.4-49); HEMOGLOBIN 9.5 GM/dL (11.7-16.9); LYMPH % 19.5 % (8-40); MCH 24.3 pg (25.7-33.7); MCHC 32.1 g/dl (32.0-35.9); MEAN CELL VOLUME 75.8 fl (80-96); MEAN PLT VOLUME 7.8 fl (7.5-11.1); MONO % 7.8 % (3.8-10.2); NEUT % 70.3 % (42.8-82.8); PLATELET COUNT 244 10^3/uL (134-434); RDW 19.2 % (11.9-15.9); WHITE BLOOD COUNT 7.1 K/mm3 (4.0-10.0)
[2020-10-06 11:35] LABS: ALBUMIN 2.9 g/dl (3.4-5.0); BLOOD UREA NITROGEN 18.3 mg/dL (7-18); CALCIUM 8.1 mg/dL (8.5-10.1)
[2020-10-06 11:40] LABS: BILIRUBIN,TOTAL 0.2 mg/dL (0.2-1); TOT PROT 6.5 g/dl (6.4-8.2)
[2020-10-06] MEDS: ASPIRIN 81 MG CHEWABLE TABLETS PO SCH (17:10)
[2020-10-06] MEDS: LOSARTAN POTASSIUM 25 MG TABLET PO SCH (17:10)
[2020-10-06] MEDS: CARVEDILOL 6.25 MG TABLET (FP) PO SCH ×2 (17:10→22:26)
[2020-10-06] MEDS: TICAGRELOR 90 MG TABLET PO SCH ×2 (17:10→22:26)
[2020-10-06] MEDS: INSULIN SLIDING SCALE (NOVOLOG) 1 VIAL SQ SCH ×2 (17:11→22:29)
[2020-10-06] MEDS: DULoxetine HCL 30 MG CAPSULE.DR PO SCH (17:11)
[2020-10-06] MEDS: LACTATED RINGERS SOLUTION 1,000 ML IV SCH ×2 (17:11→18:00)
[2020-10-06] MEDS ORDERED: PT OWN MED DRAWER 7, Y5N ONE (21:42)
[2020-10-06] MEDS: ROSUVASTATIN CA 20 MG TABLET (FP) PO SCH (22:26)
[2020-10-07] MEDS: INSULIN SLIDING SCALE (NOVOLOG) 1 VIAL SQ SCH ×4 (06:02→22:06)
[2020-10-07 09:08] LABS: BASO % 0.5 % (0-2.0); EOS % 2.5 % (0-4.5); HEMATOCRIT 31.1 % (35.4-49); HEMOGLOBIN 10.1 GM/dL (11.7-16.9); LYMPH % 16.8 % (8-40); MCH 24.6 pg (25.7-33.7); MCHC 32.3 g/dl (32.0-35.9); MEAN CELL VOLUME 76.2 fl (80-96); MEAN PLT VOLUME 8.1 fl (7.5-11.1); NEUT % 71.2 % (42.8-82.8); PLATELET COUNT 251 10^3/uL (134-434); RBC 4.08 M/mm3 (4.00-5.60); RDW 18.9 % (11.9-15.9); WHITE BLOOD COUNT 7.2 K/mm3 (4.0-10.0)
[2020-10-07 09:38] LABS: ALBUMIN 2.9 g/dl (3.4-5.0); BLOOD UREA NITROGEN 15.9 mg/dL (7-18)
[2020-10-07 09:41] LABS: PHOSPHOROUS 2.9 mg/dL (2.5-4.9)
[2020-10-07 09:43] LABS: BILIRUBIN,TOTAL 0.4 mg/dL (0.2-1); CALCIUM 8.7 mg/dL (8.5-10.1); MAGNESIUM 2.3 mg/dL (1.8-2.4); TOT PROT 6.7 g/dl (6.4-8.2)
[2020-10-07] MEDS ORDERED: PT OWN MED DRAWER 7, Y5N ONE ×2 (10:02→20:10)
[2020-10-07] MEDS: ASPIRIN 81 MG CHEWABLE TABLETS PO SCH (10:27)
[2020-10-07] MEDS: DULoxetine HCL 30 MG CAPSULE.DR PO SCH (10:27)
[2020-10-07] MEDS: LOSARTAN POTASSIUM 25 MG TABLET PO SCH (10:28)
[2020-10-07] MEDS: CARVEDILOL 6.25 MG TABLET (FP) PO SCH ×2 (10:28→22:05)
[2020-10-07] MEDS: TICAGRELOR 90 MG TABLET PO SCH ×2 (10:28→22:05)
[2020-10-07] MEDS ORDERED: cefTRIAXone SODIUM 1 GM VIAL ONE (11:58)
[2020-10-07] MEDS ORDERED: DEXTROSE 5%-WATER - 50 ML IVPB ONE (11:59)
[2020-10-07] MEDS: CEFTRIAXONE 1 GM in DEXTROSE 5%-WATER - 50 ML IVPB SCH (12:04)
[2020-10-07] MEDS ORDERED: VANCOMYCIN 1 GRAM (PRE-DOCKED) 1 GM/200 ML BAG IVPB ONE (13:00)
[2020-10-07] MEDS: ROSUVASTATIN CA 20 MG TABLET (FP) PO SCH (22:05)
[2020-10-08] MEDS: INSULIN SLIDING SCALE (NOVOLOG) 1 VIAL SQ SCH ×4 (06:14→22:13)
[2020-10-08] MEDS ORDERED: cefTRIAXone SODIUM 1 GM VIAL ONE (09:28)
[2020-10-08] MEDS ORDERED: DEXTROSE 5%-WATER - 50 ML IVPB ONE (09:28)
[2020-10-08] MEDS: ASPIRIN 81 MG CHEWABLE TABLETS PO SCH (09:44)
[2020-10-08] MEDS: LOSARTAN POTASSIUM 25 MG TABLET PO SCH (09:47)
[2020-10-08] MEDS: TICAGRELOR 90 MG TABLET PO SCH ×2 (09:47→22:23)
[2020-10-08] MEDS: DULoxetine HCL 30 MG CAPSULE.DR PO SCH (09:47)
[2020-10-08] MEDS: CARVEDILOL 6.25 MG TABLET (FP) PO SCH ×2 (09:47→22:14)
[2020-10-08] MEDS: CEFTRIAXONE 1 GM in DEXTROSE 5%-WATER - 50 ML IVPB SCH (09:48)
[2020-10-08 09:58] LABS: BASO % 0.7 % (0-2.0); EOS % 2.3 % (0-4.5); HEMATOCRIT 31.7 % (35.4-49); HEMOGLOBIN 10.3 GM/dL (11.7-16.9); LYMPH % 17.7 % (8-40); MCH 24.7 pg (25.7-33.7); MCHC 32.6 g/dl (32.0-35.9); MEAN CELL VOLUME 75.9 fl (80-96); MEAN PLT VOLUME 8.2 fl (7.5-11.1); MONO % 9.6 % (3.8-10.2); NEUT % 69.7 % (42.8-82.8); PLATELET COUNT 268 10^3/uL (134-434); RBC 4.17 M/mm3 (4.00-5.60); RDW 18.9 % (11.9-15.9)
[2020-10-08 10:19] LABS: BLOOD UREA NITROGEN 14.9 mg/dL (7-18); CALCIUM 8.5 mg/dL (8.5-10.1); MAGNESIUM 2.2 mg/dL (1.8-2.4)
[2020-10-08 10:23] LABS: PHOSPHOROUS 3.6 mg/dL (2.5-4.9)
[2020-10-08] MEDS ORDERED: PT OWN MED DRAWER 7, Y5N ONE (21:57)
[2020-10-08] MEDS: VANCOMYCIN 1 GRAM (PRE-DOCKED) 1,000 MG/250 ML BAG IVPB SCH (22:14)
[2020-10-08] MEDS: ROSUVASTATIN CA 20 MG TABLET (FP) PO SCH (22:14)
[2020-10-09] MEDS: INSULIN SLIDING SCALE (NOVOLOG) 1 VIAL SQ SCH ×4 (06:21→21:09)
[2020-10-09 08:33] LABS: BASO % 0.4 % (0-2.0); EOS % 2.4 % (0-4.5); HEMATOCRIT 30.2 % (35.4-49); LYMPH % 15.7 % (8-40); MEAN CELL VOLUME 75.7 fl (80-96); MEAN PLT VOLUME 8.1 fl (7.5-11.1); MONO % 10.3 % (3.8-10.2); NEUT % 71.2 % (42.8-82.8); PLATELET COUNT 252 10^3/uL (134-434); RBC 3.99 M/mm3 (4.00-5.60); RDW 19.5 % (11.9-15.9); WHITE BLOOD COUNT 7.3 K/mm3 (4.0-10.0)
[2020-10-09 08:58] LABS: BLOOD UREA NITROGEN 16.5 mg/dL (7-18)
[2020-10-09 09:01] LABS: CALCIUM 8.3 mg/dL (8.5-10.1); CREATININE 1.1 mg/dL (0.55-1.3); MAGNESIUM 2.2 mg/dL (1.8-2.4); PHOSPHOROUS 3.8 mg/dL (2.5-4.9)
[2020-10-09] MEDS: TICAGRELOR 90 MG TABLET PO SCH ×2 (09:27→21:08)
[2020-10-09] MEDS ORDERED: cefTRIAXone SODIUM 1 GM VIAL ONE (09:29)
[2020-10-09] MEDS ORDERED: DEXTROSE 5%-WATER - 50 ML IVPB ONE (09:29)
[2020-10-09] MEDS: CEFTRIAXONE 1 GM in DEXTROSE 5%-WATER - 50 ML IVPB SCH (09:30)
[2020-10-09] MEDS: LOSARTAN POTASSIUM 25 MG TABLET PO SCH (09:32)
[2020-10-09] MEDS: CARVEDILOL 6.25 MG TABLET (FP) PO SCH ×2 (09:32→21:09)
[2020-10-09] MEDS: VANCOMYCIN 1 GRAM (PRE-DOCKED) 1,000 MG/250 ML BAG IVPB SCH ×2 (09:32→21:08)
[2020-10-09] MEDS: DULoxetine HCL 30 MG CAPSULE.DR PO SCH (09:32)
[2020-10-09] MEDS: ASPIRIN 81 MG CHEWABLE TABLETS PO SCH (09:32)
[2020-10-09] MEDS ORDERED: INSULIN (NOVOLOG) ASPART 100 UNITS/ML 10ML VIAL ONE (18:07)
[2020-10-09] MEDS ORDERED: PT OWN MED DRAWER 7, Y5N ONE (20:38)
[2020-10-09] MEDS: ROSUVASTATIN CA 20 MG TABLET (FP) PO SCH (21:09)
[2020-10-10] MEDS: INSULIN SLIDING SCALE (NOVOLOG) 1 VIAL SQ SCH ×4 (06:32→21:51)
[2020-10-10 08:50] LABS: BASO % 0.6 % (0-2.0); EOS % 2.5 % (0-4.5); HEMATOCRIT 31.7 % (35.4-49); HEMOGLOBIN 10.4 GM/dL (11.7-16.9); LYMPH % 15.4 % (8-40); MCH 24.9 pg (25.7-33.7); MCHC 32.7 g/dl (32.0-35.9); MEAN CELL VOLUME 76.1 fl (80-96); MEAN PLT VOLUME 8.2 fl (7.5-11.1); MONO % 9.3 % (3.8-10.2); NEUT % 72.2 % (42.8-82.8); PLATELET COUNT 290 10^3/uL (134-434); RBC 4.16 M/mm3 (4.00-5.60); RDW 19.4 % (11.9-15.9)
[2020-10-10] MEDS ORDERED: cefTRIAXone SODIUM 1 GM VIAL ONE (09:58)
[2020-10-10] MEDS ORDERED: PT OWN MED DRAWER 7, Y5N ONE ×2 (09:58→20:56)
[2020-10-10] MEDS ORDERED: DEXTROSE 5%-WATER - 50 ML IVPB ONE (09:58)
[2020-10-10] MEDS: ENOXAPARIN NA (PORCINE) 40 MG/0.4 ML DISP.SYRIN SQ SCH (10:05)
[2020-10-10] MEDS: CEFTRIAXONE 1 GM in DEXTROSE 5%-WATER - 50 ML IVPB SCH (10:05)
[2020-10-10] MEDS: TICAGRELOR 90 MG TABLET PO SCH ×2 (10:06→21:51)
[2020-10-10] MEDS: LOSARTAN POTASSIUM 25 MG TABLET PO SCH (10:06)
[2020-10-10] MEDS: CARVEDILOL 6.25 MG TABLET (FP) PO SCH ×2 (10:06→21:51)
[2020-10-10] MEDS: ASPIRIN 81 MG CHEWABLE TABLETS PO SCH (10:06)
[2020-10-10] MEDS: DULoxetine HCL 30 MG CAPSULE.DR PO SCH (10:06)
[2020-10-10] MEDS ORDERED: INSULIN (NOVOLOG) ASPART 100 UNITS/ML 10ML VIAL ONE (11:03)
[2020-10-10 11:05] LABS: CALCIUM 8.8 mg/dL (8.5-10.1)
[2020-10-10 11:06] LABS: ALBUMIN 3.1 g/dl (3.4-5.0); BLOOD UREA NITROGEN 15.5 mg/dL (7-18); MAGNESIUM 2.4 mg/dL (1.8-2.4)
[2020-10-10 11:09] LABS: CREATININE 1.1 mg/dL (0.55-1.3)
[2020-10-10 11:10] LABS: BILIRUBIN,TOTAL 0.4 mg/dL (0.2-1)
[2020-10-10 11:11] LABS: TOT PROT 7.1 g/dl (6.4-8.2)
[2020-10-10] MEDS: VANCOMYCIN 1 GRAM (PRE-DOCKED) 1,000 MG/250 ML BAG IVPB SCH ×2 (12:09→14:37)
[2020-10-10] MEDS ORDERED: VANCOMYCIN 750 MG in DEXTROSE 5%-WATER - 150 ML IVPB SCH (12:15)
[2020-10-10] MEDS: ROSUVASTATIN CA 20 MG TABLET (FP) PO SCH (21:51)
[2020-10-11] MEDS: VANCOMYCIN 1 GRAM (PRE-DOCKED) 1,000 MG/250 ML BAG IVPB SCH ×2 (03:05→14:37)
[2020-10-11] MEDS: INSULIN SLIDING SCALE (NOVOLOG) 1 VIAL SQ SCH ×2 (06:39→12:08)
[2020-10-11 08:56] LABS: BASO % 0.9 % (0-2.0); HEMATOCRIT 31.9 % (35.4-49); HEMOGLOBIN 10.5 GM/dL (11.7-16.9); LYMPH % 16.9 % (8-40); MCH 25.1 pg (25.7-33.7); MEAN PLT VOLUME 8.2 fl (7.5-11.1); MONO % 8.2 % (3.8-10.2); PLATELET COUNT 301 10^3/uL (134-434); RBC 4.19 M/mm3 (4.00-5.60); RDW 19.4 % (11.9-15.9); WHITE BLOOD COUNT 7.4 K/mm3 (4.0-10.0)
[2020-10-11] MEDS ORDERED: cefTRIAXone SODIUM 1 GM VIAL ONE (09:08)
[2020-10-11] MEDS ORDERED: DEXTROSE 5%-WATER - 50 ML IVPB ONE (09:08)
[2020-10-11] MEDS ORDERED: PT OWN MED DRAWER 7, Y5N ONE (09:08)
[2020-10-11 09:16] LABS: BLOOD UREA NITROGEN 16.9 mg/dL (7-18)
[2020-10-11] MEDS: LOSARTAN POTASSIUM 25 MG TABLET PO SCH (09:16)
[2020-10-11] MEDS: DULoxetine HCL 30 MG CAPSULE.DR PO SCH (09:16)
[2020-10-11] MEDS: CARVEDILOL 6.25 MG TABLET (FP) PO SCH (09:16)
[2020-10-11] MEDS: ASPIRIN 81 MG CHEWABLE TABLETS PO SCH (09:16)
[2020-10-11] MEDS: TICAGRELOR 90 MG TABLET PO SCH (09:16)
[2020-10-11] MEDS: CEFTRIAXONE 1 GM in DEXTROSE 5%-WATER - 50 ML IVPB SCH (09:17)
[2020-10-11] MEDS: ENOXAPARIN NA (PORCINE) 40 MG/0.4 ML DISP.SYRIN SQ SCH (09:18)
[2020-10-11 09:20] LABS: CALCIUM 8.6 mg/dL (8.5-10.1); CREATININE 1.1 mg/dL (0.55-1.3)
[2020-10-11 15:22] VITALS: BP 105/57; PULSE 59; TEMP 98.7
== END 2020-10-11 16:10 | disposition home or self-care (01) | DRG 857 ==
LOC: J2C 04:34 → EDSTATUS 07:30 → J8W 17:08
PROVIDERS: ADMIT Surgery Vascular Surgery; ATTEND Internal Medicine
PROC: 3E0102A Introduction of Anti-Infective Envelope into Subcutaneous Tissue, Open Approach (ICD-10-PCS; 2020-10-06)
PROC: B41DZZZ Fluoroscopy of Aorta and Bilateral Lower Extremity Arteries (ICD-10-PCS; 2020-10-06)
PROC: B40FYZZ Plain Radiography of Right Lower Extremity Arteries using Other Contrast (ICD-10-PCS; 2020-10-06)
PROC: 0JBQ0ZZ Excision of Right Foot Subcutaneous Tissue and Fascia, Open Approach (ICD-10-PCS; principal; 2020-10-06 07:30)
PROC: 0QBL3ZX Excision of Right Tarsal, Percutaneous Approach, Diagnostic (ICD-10-PCS; 2020-10-06 07:30)
PROC: 02HV33Z Insertion of Infusion Device into Superior Vena Cava, Percutaneous Approach (ICD-10-PCS; 2020-10-11)
PROC: B548ZZA Ultrasonography of Superior Vena Cava, Guidance (ICD-10-PCS; 2020-10-11)
DX: T81.49XA Infection following a procedure, other surgical site, initial encounter (principal); T87.43 Infection of amputation stump, right lower extremity; E11.52 Type 2 diabetes mellitus with diabetic peripheral angiopathy with gangrene; I96 Gangrene, not elsewhere classified; M86.671 Other chronic osteomyelitis, right ankle and foot; T87.89 Other complications of amputation stump; Y83.5 Amputation of limb(s) as the cause of abnormal reaction of the patient, or of later complication, without mention of misadventure at the time of the procedure; E11.69 Type 2 diabetes mellitus with other specified complication; E11.621 Type 2 diabetes mellitus with foot ulcer; L97.519 Non-pressure chronic ulcer of other part of right foot with unspecified severity; I10 Essential (primary) hypertension; E78.5 Hyperlipidemia, unspecified; Z95.1 Presence of aortocoronary bypass graft; E11.40 Type 2 diabetes mellitus with diabetic neuropathy, unspecified; I25.10 Atherosclerotic heart disease of native coronary artery without angina pectoris; D50.9 Iron deficiency anemia, unspecified; Z79.4 Long term (current) use of insulin
CPT/HCPCS: 11042; 36415; 36569; 73630-TC-RT-FY; 76000-TC-FY; 77001-TC-FY; 80048; 80053; 82962; 83735; 84100; 85025; 85651; 86140; 87070; 87075; 87076; 87077; 87186; 87205; 88305-TC; 88311-TC; 94760; 97116-GP; 97161-GP; C1751; C9803; G0480; J1644; U0003; U0005

== ENCOUNTER 2020-12-20 15:24 | Inpatient (IN) | payer OTHER, BC ==
[2020-12-20 17:45] LABS: EOS % 1.9 % (0-4.5); HEMATOCRIT 33.3 % (35.4-49); HEMOGLOBIN 10.8 GM/dL (11.7-16.9); MCH 24.1 pg (25.7-33.7); MCHC 32.3 g/dl (32.0-35.9); MEAN CELL VOLUME 74.4 fl (80-96); MEAN PLT VOLUME 7.6 fl (7.5-11.1); MONO % 7.1 % (3.8-10.2); PLATELET COUNT 492 10^3/uL (134-434); RBC 4.47 M/mm3 (4.00-5.60); WHITE BLOOD COUNT 10.5 K/mm3 (4.0-10.0)
[2020-12-20 17:50] LABS: INR 1.19 (0.83-1.09)
[2020-12-20 17:53] LABS: ACTIVATED PTT 19.4 SECONDS (25.2-36.5)
[2020-12-20 18:06] LABS: CHLORIDE 102 mmol/L (98-107); SODIUM 138 mmol/L (136-145)
[2020-12-20 18:08] LABS: CALCIUM 9.4 mg/dL (8.5-10.1)
[2020-12-20 18:09] LABS: ALBUMIN 2.7 g/dl (3.4-5.0); ANION GAP 10 MMOL/L (8-16); BLOOD UREA NITROGEN 30.6 mg/dL (7-18); CO2 26 mmol/L (21-32); GLUCOSE,RANDOM 75 mg/dL (74-106)
[2020-12-20 18:12] LABS: CREATININE 1.7 mg/dL (0.55-1.3); SGOT/AST 36 U/L (15-37); SGPT/ALT 41 U/L (13-61)
[2020-12-20 18:13] LABS: BILIRUBIN,TOTAL 0.4 mg/dL (0.2-1); TOT PROT 7.9 g/dl (6.4-8.2)
[2020-12-20 18:15] LABS: ALK PHOS 93 U/L (45-117)
[2020-12-20 18:17] LABS: N-TERMINAL BNP 410.8 pg/ml (5-125)
[2020-12-20 18:18] LABS: VENOUS BASE EXCESS -1.3 mmol/L (-2-2); VENOUS O2 SATURATION 33.9 % (70-80); VENOUS PCO2 49.2 mmHg (38-52); VENOUS PH 7.329 (7.310-7.410)
[2020-12-20] MEDS ORDERED: SODIUM CHLORIDE 0.9% 500 ML INFUS.BAG IV ONE (18:31)
[2020-12-20] MEDS ORDERED: POLYETHYLENE GLYCOL 3350 119 GM BTL PO SCH (21:45)
[2020-12-20] MEDS ORDERED: SODIUM CHLORIDE 1,000 ML IV SCH (21:45)
[2020-12-20 22:12] LABS: EPI CELLS >36 /uL (0-25.1); HYALINE CASTS 44 /uL (0-3.1); URINE APPEARANCE CLOUDY; URINE BACTERIA 2 /uL (0-1359); URINE BILIRUBIN NEGATIVE (NEGATIVE); URINE COLOR YELLOW; URINE GLUCOSE (UA) NEGATIVE (NEGATIVE); URINE KETONE NEGATIVE (NEGATIVE); URINE LEUK ESTERASE NEGATIVE (NEGATIVE); URINE NITRITE NEGATIVE (NEGATIVE); URINE PROTEIN 2+ (NEGATIVE); URINE RBC 3 /uL (0-23.9); URINE WBC 38 /uL (0-25.8)
[2020-12-20 22:45] LABS: RETICULOCYTES 0.67 % (0.5-1.5)
[2020-12-20 22:55] LABS: IRON SERUM 22 ug/dL (50-175); TOTAL IRON BINDING CAPACITY 229 ug/dL (250-450)
[2020-12-20] MEDS: HEPARIN NA (PORCINE) 5,000 UNITS/ML 1ML VIAL SQ SCH (23:30)
[2020-12-20] MEDS: INSULIN SLIDING SCALE (NOVOLOG) 1 VIAL SQ SCH (23:30)
[2020-12-20] MEDS: ROSUVASTATIN CA 20 MG TABLET (FP) PO SCH (23:30)
[2020-12-21] MEDS: POLYETHYLENE GLYCOL (HEALTHYLAX) 3350 17 GM PACKET PO SCH ×3 (00:10→21:30)
[2020-12-21] MEDS ORDERED: DEXTROSE 50%-WATER 25 GM/50 ML DISP.SYRIN ONE (00:18)
[2020-12-21] MEDS ORDERED: DEXTROSE 50%-WATER 25 GM/50 ML DISP.SYRIN IVPUSH ONE ×2 (00:22→00:30)
[2020-12-21] MEDS ORDERED: DEXTROSE 50%-WATER - 25 GM/50 ML VIAL IVPUSH ONE (00:30)
[2020-12-21 04:37] LABS: BASO % 0.5 % (0-2.0); EOS % 1.8 % (0-4.5); HEMATOCRIT 39.6 % (35.4-49); HEMOGLOBIN 12.1 GM/dL (11.7-16.9); LYMPH % 13.5 % (8-40); MCH 23.6 pg (25.7-33.7); MCHC 30.6 g/dl (32.0-35.9); MEAN CELL VOLUME 76.9 fl (80-96); MEAN PLT VOLUME 7.7 fl (7.5-11.1); MONO % 7.9 % (3.8-10.2); NEUT % 76.3 % (42.8-82.8); PLATELET COUNT 362 10^3/uL (134-434); RBC 5.15 M/mm3 (4.00-5.60); RDW 18.1 % (11.9-15.9); WHITE BLOOD COUNT 9.3 K/mm3 (4.0-10.0)
[2020-12-21 05:56] VITALS: BMI 34.8
[2020-12-21] MEDS: HEPARIN NA (PORCINE) 5,000 UNITS/ML 1ML VIAL SQ SCH ×3 (06:21→21:30)
[2020-12-21] MEDS: INSULIN SLIDING SCALE (NOVOLOG) 1 VIAL SQ SCH ×4 (06:22→21:31)
[2020-12-21 09:03] LABS: BASO % 0.5 % (0-2.0); EOS % 3.1 % (0-4.5); HEMATOCRIT 33.9 % (35.4-49); HEMOGLOBIN 11.1 GM/dL (11.7-16.9); LYMPH % 19.2 % (8-40); MCH 24.7 pg (25.7-33.7); MCHC 32.8 g/dl (32.0-35.9); MEAN CELL VOLUME 75.3 fl (80-96); MEAN PLT VOLUME 7.7 fl (7.5-11.1); MONO % 9.1 % (3.8-10.2); NEUT % 68.1 % (42.8-82.8); PLATELET COUNT 443 10^3/uL (134-434); RDW 17.7 % (11.9-15.9); WHITE BLOOD COUNT 9.2 K/mm3 (4.0-10.0)
[2020-12-21 09:31] LABS: ALBUMIN 2.7 g/dl (3.4-5.0)
[2020-12-21] MEDS ORDERED: VANCOMYCIN 1 GM in D5W (PRE-DOCKED) 1,000 MG/250 ML IVPB ONE (09:31)
[2020-12-21 09:33] LABS: CREATININE 1.4 mg/dL (0.55-1.3); PHOSPHOROUS 3.5 mg/dL (2.5-4.9)
[2020-12-21 09:35] LABS: BILIRUBIN,TOTAL 0.3 mg/dL (0.2-1); CALCIUM 9.1 mg/dL (8.5-10.1); TOT PROT 7.8 g/dl (6.4-8.2)
[2020-12-21 09:36] LABS: MAGNESIUM 2.5 mg/dL (1.8-2.4)
[2020-12-21] MEDS ORDERED: PIPERACILLIN/TAZOB 3.375 GM 3.375 GM in DEXTROSE 5%-WATER - 50 ML IVPB SCH (10:00)
[2020-12-21] MEDS ORDERED: DEXTROSE 5%-WATER - 50 ML IVPB ONE (11:07)
[2020-12-21] MEDS ORDERED: PIPERACILLIN/TAZOBACTAM 3.375 GM VIAL IVPB ONE (11:07)
[2020-12-21] MEDS ORDERED: INSULIN (NOVOLOG) ASPART 100 UNITS/ML 10ML VIAL ONE ×2 (11:42→21:25)
[2020-12-21] MEDS: TICAGRELOR 90 MG TABLET PO SCH ×2 (12:14→21:30)
[2020-12-21] MEDS ORDERED: ALBUTEROL SO4 2.5/IPRATROPIUM 0.5 INH SOL 3 ML VIAL.NEB. NEB PRN (14:02)
[2020-12-21] MEDS ORDERED: PT OWN MED DRAWER 7, Y5N ONE (21:25)
[2020-12-21] MEDS: CARVEDILOL 6.25 MG TABLET (FP) PO SCH (21:30)
[2020-12-21] MEDS: ROSUVASTATIN CA 20 MG TABLET (FP) PO SCH (21:30)
[2020-12-22] MEDS: HEPARIN NA (PORCINE) 5,000 UNITS/ML 1ML VIAL SQ SCH ×2 (06:39→15:42)
[2020-12-22] MEDS: INSULIN SLIDING SCALE (NOVOLOG) 1 VIAL SQ SCH ×4 (06:39→16:48)
[2020-12-22] MEDS ORDERED: INSULIN (NOVOLOG) ASPART 100 UNITS/ML 10ML VIAL ONE (07:40)
[2020-12-22 08:54] LABS: BASO % 0.9 % (0-2.0); EOS % 2.2 % (0-4.5); HEMATOCRIT 34.5 % (35.4-49); HEMOGLOBIN 11.4 GM/dL (11.7-16.9); MCH 24.8 pg (25.7-33.7); MEAN CELL VOLUME 75.3 fl (80-96); MEAN PLT VOLUME 7.7 fl (7.5-11.1); MONO % 7.3 % (3.8-10.2); NEUT % 73.6 % (42.8-82.8); PLATELET COUNT 486 10^3/uL (134-434); RBC 4.58 M/mm3 (4.00-5.60); RDW 17.9 % (11.9-15.9); WHITE BLOOD COUNT 9.1 K/mm3 (4.0-10.0)
[2020-12-22 09:28] LABS: ALBUMIN 2.8 g/dl (3.4-5.0); BLOOD UREA NITROGEN 18.8 mg/dL (7-18)
[2020-12-22 09:29] LABS: CALCIUM 9.4 mg/dL (8.5-10.1)
[2020-12-22 09:30] LABS: MAGNESIUM 2.5 mg/dL (1.8-2.4)
[2020-12-22 09:31] LABS: CREATININE 1.4 mg/dL (0.55-1.3); PHOSPHOROUS 3.1 mg/dL (2.5-4.9)
[2020-12-22 09:32] LABS: BILIRUBIN,TOTAL 0.3 mg/dL (0.2-1); TOT PROT 8.1 g/dl (6.4-8.2)
[2020-12-22] MEDS ORDERED: ASPIRIN 81 MG CHEWABLE TABLETS PO SCH (10:00)
[2020-12-22] MEDS ORDERED: LOSARTAN POTASSIUM 25 MG TABLET PO SCH (10:00)
[2020-12-22] MEDS ORDERED: DULoxetine HCL 30 MG CAPSULE.DR PO SCH (10:00)
[2020-12-22] MEDS: CARVEDILOL 6.25 MG TABLET (FP) PO SCH (10:26)
[2020-12-22] MEDS: POLYETHYLENE GLYCOL (HEALTHYLAX) 3350 17 GM PACKET PO SCH ×2 (10:27→10:58)
[2020-12-22] MEDS: TICAGRELOR 90 MG TABLET PO SCH (10:27)
[2020-12-22 14:15] VITALS: BP 110/72; PULSE 60; TEMP 97.9
== END 2020-12-22 18:04 | disposition home or self-care (01) | DRG 638 ==
LOC: JER 15:24 → JERBED 18:50 → J8W 12-21 00:06
PROVIDERS: ADMIT Internal Medicine
DX: E11.649 Type 2 diabetes mellitus with hypoglycemia without coma (principal); M86.60 Other chronic osteomyelitis, unspecified site; N17.9 Acute kidney failure, unspecified; I25.10 Atherosclerotic heart disease of native coronary artery without angina pectoris; E11.40 Type 2 diabetes mellitus with diabetic neuropathy, unspecified; I25.2 Old myocardial infarction; R91.8 Other nonspecific abnormal finding of lung field; E86.0 Dehydration; E11.51 Type 2 diabetes mellitus with diabetic peripheral angiopathy without gangrene; E66.9 Obesity, unspecified; Z68.34 Body mass index [BMI] 34.0-34.9, adult; E11.621 Type 2 diabetes mellitus with foot ulcer; L97.509 Non-pressure chronic ulcer of other part of unspecified foot with unspecified severity; D38.1 Neoplasm of uncertain behavior of trachea, bronchus and lung; E11.69 Type 2 diabetes mellitus with other specified complication; Z89.422 Acquired absence of other left toe(s); Z95.5 Presence of coronary angioplasty implant and graft; Z95.1 Presence of aortocoronary bypass graft
CPT/HCPCS: 36415; 71045-TC-FY; 71250-TC; 76775-TC; 80053; 81003; 82010; 82550; 82728; 82803; 82962; 83540; 83550; 83605; 83735; 83880; 84100; 84439; 84443; 84484; 85025; 85045; 85379; 85610; 85730; 86850; 86900; 86901; 87040; 87086; 87186; 93005; 93010; 93306-TC; 93970-TC; 99285-25; A6022; C9803; G0463-25; J1644; U0003; U0005

== ENCOUNTER 2021-01-02 04:52 | Day surgery (SDC) | payer OTHER, BC ==
[2020-12-30 15:17] VITALS: BMI 32.1
[2021-01-02 14:11] VITALS: TEMP 98
[2021-01-02 15:21] VITALS: BP 130/62; PULSE 63
== END 2021-01-02 15:52 | disposition home or self-care (01) ==
LOC: JRADIR 04:52
PROVIDERS: ATTEND Internal Medicine Pulmonary Disease
PROC: 0BBL3ZX Excision of Left Lung, Percutaneous Approach, Diagnostic (ICD-10-PCS; principal; 2021-01-02)
DX: C34.92 Malignant neoplasm of unspecified part of left bronchus or lung (principal)
CPT/HCPCS: 32408; 71046-TC-FY; 87070; 87075; 87102; 87116; 87205; 87206; 87210